=== PATIENT | male | born 1940 | race Caucasian/White ===

== ENCOUNTER 2020-03-30 10:22 | Outpatient (REF) | payer MEDICARE, SELFPAY ==
[2020-03-30 13:41] LABS: MANUAL DIFF FLAG NO
[2020-03-30 13:49] LABS: Basophils Percent Auto 0.5 % (0-2); Eosinophils Absolute Auto 0.5 X10*3/uL (0.0-0.4); Eosinophils Percent Auto 5.6 % (0-4); Hematocrit 34.9 % (42-52); Hemoglobin 11.5 g/dl (14.0-18.0); Imm Gran Abs Auto 0.04 X10*3/uL (0.00-0.03); Imm Gran Pct Auto 0.5 % (0.0-0.4); Lymphocytes Absolute Auto 1.5 X10*3/uL (1.2-4.9); Lymphocytes Percent Auto 16.8 % (20-40); Mean Corpuscular Hemoglobin 30.3 pg (27.0-33.0); Mean Corpuscular Volume 91.8 fL (80-98); Mean Platelet Volume 10.4 fL (9.4-12.4); Monocytes Absolute Auto 0.7 X10*3/uL (0.1-1.2); Neutrophils Absolute Auto 6.1 X10*3/uL (2.0-8.3); Neutrophils Percent Auto 68.6 % (45-73); Platelet Count 230 X10*3/uL (160-400); Red Cell Distribution Width 13.5 % (11.0-16.0); White Blood Count 8.9 X10*3/uL (4.8-10.8)
[2020-03-30 14:05] LABS: Estimated Average Glucose 212 mg/dL; Total Hemoglobin (HGBA1C) 2890.5725 umol/L
[2020-03-30 14:16] LABS: Alanine Aminotransferase 22 U/L (0-40); Albumin Level 4.1 g/dL (3.5-5.0); Alkaline Phosphatase 113 U/L (39-117); Anion Gap 17 (12-20); Aspartate Amino Transferase 21 U/L (5-37); Bilirubin Total 0.6 mg/dL (0.0-1.0); Blood Urea Nitrogen 22 mg/dL (9-16); Calcium 9.3 mg/dL (8.4-10.2); Carbon Dioxide 25 mmol/L (22-29); Chloride 101 mmol/L (96-108); Estimated Glomerular Filt Rate 55; Glucose Fasting 189 mg/dL (60-99); Potassium 4.3 mmol/l (3.3-5.1); Sodium 139 mmol/L (135-145); Total Protein 7.7 g/dL (6.5-8.0)
[2020-03-30 14:39] LABS: Creatinine Urine 19.64 mg/dL; Microalbum/Creatinine Ratio Ur 295.3 ug/mg cr
== END 2020-03-30 10:23 | disposition home or self-care (01) ==
LOC: HO.10HDL 10:22
PROVIDERS: Visit Provider Internal Medicine
DX: I48.91 Unspecified atrial fibrillation (principal); I25.10 Atherosclerotic heart disease of native coronary artery without angina pectoris; K21.9 Gastro-esophageal reflux disease without esophagitis; E11.22 Type 2 diabetes mellitus with diabetic chronic kidney disease; I12.9 Hypertensive chronic kidney disease with stage 1 through stage 4 chronic kidney disease, or unspecified chronic kidney disease; N18.9 Chronic kidney disease, unspecified
CPT/HCPCS: 36415; 80053; 82043; 83036; 85025

== ENCOUNTER 2020-07-27 11:04 | Outpatient (REF) | payer MEDICARE, SELFPAY ==
[2020-07-27 13:45] LABS: MANUAL DIFF FLAG NO
[2020-07-27 13:53] LABS: Basophils Percent Auto 0.4 % (0-2); Eosinophils Absolute Auto 0.7 X10*3/uL (0.0-0.4); Eosinophils Percent Auto 6.8 % (0-4); Hematocrit 35.8 % (42-52); Hemoglobin 11.6 g/dl (14.0-18.0); Imm Gran Abs Auto 0.03 X10*3/uL (0.00-0.03); Imm Gran Pct Auto 0.3 % (0.0-0.4); Lymphocytes Absolute Auto 1.5 X10*3/uL (1.2-4.9); Lymphocytes Percent Auto 14.3 % (20-40); Mean Corpuscular HGB Conc 32.4 g/dl (31.0-36.0); Mean Corpuscular Hemoglobin 30.1 pg (27.0-33.0); Mean Platelet Volume 10.7 fL (9.4-12.4); Monocytes Absolute Auto 0.9 X10*3/uL (0.1-1.2); Monocytes Percent Auto 8.9 % (2-11); Neutrophils Absolute Auto 7.1 X10*3/uL (2.0-8.3); Neutrophils Percent Auto 69.3 % (45-73); Platelet Count 228 X10*3/uL (160-400); Red Blood Count 3.85 X10*6/uL (4.60-5.80); Red Cell Distribution Width 13.2 % (11.0-16.0); White Blood Count 10.2 X10*3/uL (4.8-10.8)
[2020-07-27 14:02] LABS: Estimated Average Glucose 192 mg/dL; Hemoglobin A1c % 8.3 %
[2020-07-27 14:23] LABS: Alanine Aminotransferase 19 U/L (0-40); Albumin Level 4.4 g/dL (3.5-5.0); Alkaline Phosphatase 116 U/L (39-117); Anion Gap 15 (12-20); Aspartate Amino Transferase 23 U/L (5-37); Bilirubin Total 0.9 mg/dL (0.0-1.0); Blood Urea Nitrogen 25 mg/dL (9-16); Calcium 9.6 mg/dL (8.4-10.2); Carbon Dioxide 28 mmol/L (22-29); Chloride 102 mmol/L (96-108); Estimated Glomerular Filt Rate 58; Glucose Random 236 mg/dL (60-115); Potassium 4.4 mmol/L (3.3-5.1); Sodium 141 mmol/L (135-145); Total Protein 7.9 g/dL (6.5-8.0)
[2020-07-27 14:32] LABS: Microalbum/Creatinine Ratio Ur 191.7 ug/mg cr
== END 2020-07-27 11:05 | disposition home or self-care (01) ==
LOC: HO.10HDL 11:04
PROVIDERS: Visit Provider Internal Medicine
DX: I48.91 Unspecified atrial fibrillation (principal); K21.9 Gastro-esophageal reflux disease without esophagitis; E11.22 Type 2 diabetes mellitus with diabetic chronic kidney disease; I12.9 Hypertensive chronic kidney disease with stage 1 through stage 4 chronic kidney disease, or unspecified chronic kidney disease; N18.9 Chronic kidney disease, unspecified; D63.1 Anemia in chronic kidney disease
CPT/HCPCS: 36415; 80053; 82043; 83036; 85025

== ENCOUNTER 2020-11-02 13:20 | Outpatient (REF) | payer MEDICARE, SELFPAY ==
[2020-11-02 13:55] LABS: MANUAL DIFF FLAG NO
[2020-11-02 14:05] LABS: Basophils Percent Auto 0.4 % (0-2); Eosinophils Absolute Auto 0.4 X10*3/uL (0.0-0.4); Eosinophils Percent Auto 4.5 % (0-4); Hematocrit 36.2 % (42-52); Hemoglobin 11.7 g/dl (14.0-18.0); Imm Gran Abs Auto 0.04 X10*3/uL (0.00-0.03); Imm Gran Pct Auto 0.4 % (0.0-0.4); Lymphocytes Absolute Auto 1.6 X10*3/uL (1.2-4.9); Lymphocytes Percent Auto 16.7 % (20-40); Mean Corpuscular HGB Conc 32.3 g/dl (31.0-36.0); Mean Corpuscular Hemoglobin 30.1 pg (27.0-33.0); Mean Corpuscular Volume 93.1 fL (80-98); Mean Platelet Volume 9.7 fL (9.4-12.4); Monocytes Absolute Auto 0.9 X10*3/uL (0.1-1.2); Neutrophils Absolute Auto 6.8 X10*3/uL (2.0-8.3); Platelet Count 228 X10*3/uL (160-400); Red Blood Count 3.89 X10*6/uL (4.60-5.80); Red Cell Distribution Width 13.2 % (11.0-16.0); White Blood Count 9.8 X10*3/uL (4.8-10.8)
[2020-11-02 14:23] LABS: Estimated Average Glucose 212 mg/dL
[2020-11-02 14:36] LABS: Anion Gap 14 (12-20); Blood Urea Nitrogen 25 mg/dL (9-16); Carbon Dioxide 31 mmol/L (22-29); Chloride 101 mmol/L (96-108); Estimated Glomerular Filt Rate 45; Glucose Random 238 mg/dL (60-115); Iron 98 mcg/dL (45-160); Percent Iron Saturation 32 % (15-50); Potassium 4.5 mmol/L (3.3-5.1); Sodium 141 mmol/L (135-145); Total Iron Binding Capacity 303 mcg/dL (228-428); Unsaturated Iron Binding 205 ug/dL
[2020-11-02 14:46] LABS: Thyroid Stimulating Hormone 0.81 uIU/mL (0.32-4.0)
== END 2020-11-02 13:21 | disposition home or self-care (01) ==
LOC: HO.LAB 13:20
PROVIDERS: PCP Internal Medicine; Visit Provider Internal Medicine
DX: R60.0 Localized edema (principal); D64.9 Anemia, unspecified; I12.9 Hypertensive chronic kidney disease with stage 1 through stage 4 chronic kidney disease, or unspecified chronic kidney disease; N18.9 Chronic kidney disease, unspecified; E11.22 Type 2 diabetes mellitus with diabetic chronic kidney disease; I42.9 Cardiomyopathy, unspecified
CPT/HCPCS: 36415; 80048; 83036; 83540; 84443; 85025

== ENCOUNTER 2021-01-25 11:13 | Outpatient (REF) | payer MEDICARE, SELFPAY ==
[2021-01-25 13:36] LABS: MANUAL DIFF FLAG NO
[2021-01-25 13:52] LABS: Basophils Percent Auto 0.3 % (0-2); Eosinophils Absolute Auto 0.1 X10*3/uL (0.0-0.4); Eosinophils Percent Auto 0.5 % (0-4); Hematocrit 32.7 % (42-52); Hemoglobin 10.5 g/dl (14.0-18.0); Imm Gran Abs Auto 0.08 X10*3/uL (0.00-0.03); Imm Gran Pct Auto 0.5 % (0.0-0.4); Lymphocytes Absolute Auto 0.9 X10*3/uL (1.2-4.9); Lymphocytes Percent Auto 6.1 % (20-40); Mean Corpuscular HGB Conc 32.1 g/dl (31.0-36.0); Mean Corpuscular Hemoglobin 29.9 pg (27.0-33.0); Mean Corpuscular Volume 93.2 fL (80-98); Mean Platelet Volume 9.6 fL (9.4-12.4); Monocytes Percent Auto 6.5 % (2-11); Neutrophils Absolute Auto 12.8 X10*3/uL (2.0-8.3); Neutrophils Percent Auto 86.1 % (45-73); Platelet Count 336 X10*3/uL (160-400); Red Blood Count 3.51 X10*6/uL (4.60-5.80); Red Cell Distribution Width 13.4 % (11.0-16.0); White Blood Count 14.8 X10*3/uL (4.8-10.8)
[2021-01-25 14:43] LABS: Estimated Average Glucose 226 mg/dL; Hemoglobin A1c % 9.5 %
[2021-01-25 15:06] LABS: Alanine Aminotransferase 20 U/L (0-40); Albumin Level 3.8 g/dL (3.5-5.0); Alkaline Phosphatase 110 U/L (39-117); Anion Gap 14 (12-20); Aspartate Amino Transferase 14 U/L (5-37); Bilirubin Total 1.2 mg/dL (0.0-1.0); Blood Urea Nitrogen 21 mg/dL (9-16); Carbon Dioxide 28 mmol/L (22-29); Chloride 101 mmol/L (96-108); Estimated Glomerular Filt Rate 53; Glucose Random 273 mg/dL (60-115); Potassium 3.9 mmol/L (3.3-5.1); Sodium 139 mmol/L (135-145); Total Protein 7.1 g/dL (6.5-8.0)
[2021-01-25 15:11] LABS: Creatinine Urine 84.35 mg/dL; Microalbum/Creatinine Ratio Ur 163.6 ug/mg cr
== END 2021-01-25 11:14 | disposition home or self-care (01) ==
LOC: HO.10HDL 11:13
PROVIDERS: Visit Provider Internal Medicine
DX: E11.9 Type 2 diabetes mellitus without complications (principal); I48.0 Paroxysmal atrial fibrillation; N18.9 Chronic kidney disease, unspecified
CPT/HCPCS: 36415; 80053; 82043; 83036; 85025

== ENCOUNTER 2021-04-26 09:31 | Outpatient (REF) | payer MEDICARE, SELFPAY ==
[2021-04-26 10:49] LABS: Estimated Average Glucose 203 mg/dL; Hemoglobin A1c % 8.7 %
[2021-04-26 10:54] LABS: Anion Gap 12 (12-20); Blood Urea Nitrogen 22 mg/dL (9-16); Calcium 9.4 mg/dL (8.4-10.2); Carbon Dioxide 28 mmol/L (22-29); Chloride 103 mmol/L (96-108); Estimated Glomerular Filt Rate 56; Glucose Fasting 172 mg/dL (60-99); Potassium 4.4 mmol/L (3.3-5.1); Sodium 139 mmol/L (135-145)
== END 2021-04-26 09:32 | disposition home or self-care (01) ==
LOC: HO.10HDL 09:31
PROVIDERS: Visit Provider Internal Medicine
DX: I48.0 Paroxysmal atrial fibrillation (principal); E11.9 Type 2 diabetes mellitus without complications; N18.9 Chronic kidney disease, unspecified; I50.9 Heart failure, unspecified
CPT/HCPCS: 36415; 80048; 83036

== ENCOUNTER 2021-07-12 11:05 | Outpatient (REF) | payer MEDICARE, SELFPAY ==
[2021-07-12 14:00] LABS: MANUAL DIFF FLAG NO
[2021-07-12 14:14] LABS: Basophils Absolute Auto 0.1 X10*3/uL (0.0-0.2); Basophils Percent Auto 0.6 % (0-2); Eosinophils Absolute Auto 0.6 X10*3/uL (0.0-0.4); Eosinophils Percent Auto 6.5 % (0-4); Hematocrit 34.8 % (42.0-52.0); Hemoglobin 11.3 g/dl (14.0-18.0); Imm Gran Abs Auto 0.05 X10*3/uL (0.00-0.03); Imm Gran Pct Auto 0.5 % (0.0-0.4); Lymphocytes Absolute Auto 1.6 X10*3/uL (1.2-4.9); Lymphocytes Percent Auto 16.7 % (20-40); Mean Corpuscular HGB Conc 32.5 g/dl (31.0-36.0); Mean Corpuscular Volume 92.3 fL (80.0-98.0); Mean Platelet Volume 10.1 fL (9.4-12.4); Monocytes Absolute Auto 0.9 X10*3/uL (0.1-1.2); Monocytes Percent Auto 9.4 % (2-11); Neutrophils Absolute Auto 6.3 x10*3/uL (2.0-8.3); Neutrophils Percent Auto 66.3 % (45-73); Platelet Count 221 X10*3/uL (160-400); Red Blood Count 3.77 X10*6/uL (4.60-5.80); Red Cell Distribution Width 13.5 % (11.0-16.0); White Blood Count 9.5 X10*3/uL (4.8-10.8)
[2021-07-12 14:32] LABS: Alanine Aminotransferase 25 U/L (0-40); Alkaline Phosphatase 122 U/L (39-117); Anion Gap 14 (12-20); Aspartate Amino Transferase 22 U/L (5-37); Bilirubin Total 0.6 mg/dL (0.0-1.0); Blood Urea Nitrogen 25 mg/dL (9-16); Calcium 9.5 mg/dL (8.4-10.2); Carbon Dioxide 27 mmol/L (22-29); Chloride 100 mmol/L (96-108); Estimated Glomerular Filt Rate 50; Glucose Random 245 mg/dL (60-115); Iron 74 mcg/dL (45-160); Percent Iron Saturation 24 % (15-50); Potassium 4.1 mmol/L (3.3-5.1); Sodium 137 mmol/L (135-145); Total Iron Binding Capacity 306 mcg/dL (228-428); Total Protein 7.7 g/dL (6.5-8.0); Unsaturated Iron Binding 232 ug/dL
[2021-07-13 04:19] LABS: Estimated Average Glucose 186 mg/dL; Hemoglobin A1c % 8.1 %
== END 2021-07-12 11:06 | disposition home or self-care (01) ==
LOC: HO.10HDL 11:05
PROVIDERS: Visit Provider Internal Medicine
DX: E11.22 Type 2 diabetes mellitus with diabetic chronic kidney disease (principal); N18.9 Chronic kidney disease, unspecified; D64.9 Anemia, unspecified; I25.10 Atherosclerotic heart disease of native coronary artery without angina pectoris; I48.0 Paroxysmal atrial fibrillation
CPT/HCPCS: 36415; 80053; 83036; 83540; 85025

== ENCOUNTER 2021-11-01 11:19 | Outpatient (REF) | payer MEDICARE, MEDICAID, SELFPAY ==
[2021-11-01 13:44] LABS: MANUAL DIFF FLAG NO
[2021-11-01 13:57] LABS: Basophils Percent Auto 0.4 % (0-2); Eosinophils Absolute Auto 0.5 X10*3/uL (0.0-0.4); Eosinophils Percent Auto 5.2 % (0-4); Hematocrit 33.1 % (42.0-52.0); Hemoglobin 10.4 g/dl (14.0-18.0); Imm Gran Abs Auto 0.06 X10*3/uL (0.00-0.03); Imm Gran Pct Auto 0.6 % (0.0-0.4); Lymphocytes Absolute Auto 0.8 X10*3/uL (1.2-4.9); Lymphocytes Percent Auto 8.5 % (20-40); Mean Corpuscular HGB Conc 31.4 g/dl (31.0-36.0); Mean Corpuscular Hemoglobin 29.4 pg (27.0-33.0); Mean Corpuscular Volume 93.5 fL (80.0-98.0); Mean Platelet Volume 9.1 fL (9.4-12.4); Monocytes Absolute Auto 0.9 X10*3/uL (0.1-1.2); Monocytes Percent Auto 8.9 % (2-11); Neutrophils Absolute Auto 7.4 x10*3/uL (2.0-8.3); Neutrophils Percent Auto 76.4 % (45-73); Platelet Count 314 X10*3/uL (160-400); Red Blood Count 3.54 X10*6/uL (4.60-5.80); Red Cell Distribution Width 13.2 % (11.0-16.0); White Blood Count 9.7 X10*3/uL (4.8-10.8)
[2021-11-01 15:22] LABS: Alanine Aminotransferase 98 U/L (0-40); Albumin Level 3.5 g/dL (3.5-5.0); Alkaline Phosphatase 117 U/L (39-117); Anion Gap 14 (12-20); Aspartate Amino Transferase 53 U/L (5-37); Bilirubin Total 0.7 mg/dL (0.0-1.0); Blood Urea Nitrogen 31 mg/dL (9-16); Calcium 8.6 mg/dL (8.4-10.2); Carbon Dioxide 28 mmol/L (22-29); Chloride 96 mmol/L (96-108); Estimated Glomerular Filt Rate 40; Glucose Random 316 mg/dL (60-115); Iron 28 mcg/dL (45-160); Percent Iron Saturation 12 % (15-50); Potassium 3.9 mmol/L (3.3-5.1); Sodium 134 mmol/L (135-145); Total Iron Binding Capacity 243 mcg/dL (228-428); Total Protein 7.2 g/dL (6.5-8.0); Unsaturated Iron Binding 215 ug/dL
[2021-11-01 15:37] LABS: Creatinine Urine 68.51 mg/dL; Microalbum/Creatinine Ratio Ur 261.2 ug/mg cr
[2021-11-01 20:17] LABS: Estimated Average Glucose 240 mg/dL
== END 2021-11-01 11:20 | disposition home or self-care (01) ==
LOC: HO.10HDL 11:19
PROVIDERS: Visit Provider Internal Medicine
DX: I48.91 Unspecified atrial fibrillation (principal); D64.9 Anemia, unspecified; I12.9 Hypertensive chronic kidney disease with stage 1 through stage 4 chronic kidney disease, or unspecified chronic kidney disease; N18.9 Chronic kidney disease, unspecified; E11.22 Type 2 diabetes mellitus with diabetic chronic kidney disease
CPT/HCPCS: 36415; 80053; 82043; 83036; 83540; 85025

== ENCOUNTER 2022-01-18 08:45 | Inpatient (IN) | payer MEDICARE, MEDICAID, SELFPAY ==
[2022-01-18] VITALS (7 sets, daily range): BP systolic 127–154; BP diastolic 71–93; PULSE 74–131; RESP 18–31; TEMP 36.3–36.8; O2SAT 89–96; BMI 26.6
--- NOTE | ~2022-01-18 | XR_ITS ---
EXAMINATION: XR CHEST CLINICAL INFORMATION: Dyspnea. COMPARISON: 05/30/2009 chest radiograph. TECHNIQUE: Frontal view of the chest was obtained. FINDINGS: Mild increased pulmonary vascular markings are seen. The heart is mildly enlarged. The mediastinal structures are unremarkable. Multilevel sternotomy wires are seen, the top 3 of which are fractured without significant displacement. XR/XR chest 1V IMPRESSION: Mild prominence of the pulmonary vasculature could be baseline for the patient, but appears mildly increased compared to the previous study. Mild congestion cannot be excluded.
--- NOTE | ~2022-01-18 | CT_ITS ---
EXAMINATION: CT HEAD WITHOUT CONTRAST CLINICAL INFORMATION: Unwitnessed fall. COMPARISON: Brain MRI 06/01/2009. TECHNIQUE: Contiguous axial imaging was performed from the skull base to vertex without intravenous administration of contrast. This CT examination was performed using dose optimization techniques as appropriate, variously including the following: *Automated exposure control *Adjustment of mA and/or kV according to patient size (this includes techniques or standardized protocols for targeted exams where dose is matched to indication/reason for exam; i.e. extremities or head) *Use of iterative reconstruction technique DLP: 710 mGy-cm. FINDINGS: There is no intracranial hemorrhage, extra-axial collection, mass effect, or acute territorial infarction. A moderate-sized area of chronic infarction is seen within the right parietal lobe with encephalomalacic and gliotic changes noted in the parenchyma. There is some ex vacuo dilatation of the right lateral ventricle. There is mild degree of brain parenchymal volume loss with commensurate prominence of the ventricles and sulci. Hypoattenuation in the cerebral white matter most likely reflects sequela of chronic microangiopathy. There is mineralization/calcification about the bilateral tentorial reflection's. The calvarium is intact without fracture. A small area of contusion is seen within the left parietal scalp. Dense atheromatous calcifications are seen within the vertebral arteries and internal carotid arteries. CT/CT head/brain wo IV con IMPRESSION: No acute intracranial abnormality. Small left parietal scalp contusion. No evidence of hemorrhage. 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
--- NOTE | ~2022-01-18 | US_ITS ---
EXAMINATION: US VENOUS ULTRASOUND WITH DOPPLER LOWER EXTREMITY, BILATERAL CLINICAL INFORMATION: Lower extremity pain and swelling. COMPARISON: None TECHNIQUE: Ultrasound of the deep veins is performed from the hip to the calf with compression sonography and color and pulse Doppler assessment. Spectral analysis with color-flow imaging is performed. FINDINGS: RIGHT: There is normal venous compression and respiratory variation and augmented flow. The visualized common femoral vein, superficial femoral vein, profunda femoral vein, popliteal vein, and the trifurcation region shows no evidence of deep venous thrombosis. No right popliteal cyst. Mild to moderate subcutaneous edema in the right calf. LEFT: There is normal venous compression and respiratory variation and augmented flow. The visualized common femoral vein, superficial femoral vein, profunda femoral vein, popliteal vein, and the trifurcation region shows no evidence of deep venous thrombosis. No left popliteal cyst. Mild to moderate subcutaneous edema in the left calf. If the patient's symptoms persist, followup ultrasound in 5 days 7 days might be of value to exclude proximal propagation from a non-visualized calf vein. US/US venous duplex LE BI IMPRESSION: 1. No evidence for deep venous thrombosis in the visualized veins of the bilateral lower extremity's. 2. Mild to moderate subcutaneous edema in the calves bilaterally.
--- NOTE | ~2022-01-18 | XR_ITS ---
EXAMINATION: XR BILATERAL HIPS WITH AP PELVIS CLINICAL INFORMATION: Unwitnessed fall COMPARISON: None TECHNIQUE: AP view of the pelvis and single views of each hip were obtained. FINDINGS: The single pelvic image does not demonstrate evidence for fracture. Detailed views 2 views of the right hip do not demonstrate acute fracture or dislocation. Some degenerative change is seen. 2 views of the left hip do not show evidence for acute fracture or dislocation. Degenerative changes are noted. XR/XR hips GEOVANNY min 3V IMPRESSION: No acute finding
--- NOTE | 2022-01-18 09:08 | ECG_ITS ---
Test Reason : sob Blood Pressure : / mmHG Vent. Rate : 112 BPM Atrial Rate : 000 BPM P-R Int : 000 ms QRS Dur : 106 ms QT Int : 332 ms P-R-T Axes : 000 011 092 degrees QTc Int : 453 ms Atrial fibrillation with rapid ventricular response with premature ventricular or aberrantly conducted complexes Low voltage QRS Possible Inferior infarct (cited on or before 30-MAY-2009) Possible Anterolateral infarct , age undetermined Abnormal ECG When compared with ECG of 30-MAY-2009 11:57, Atrial fibrillation has replaced Sinus rhythm Vent. rate has increased BY 48 BPM Borderline criteria for Anterolateral infarct are now Present Nonspecific T wave abnormality now evident in Inferior leads Referred By: Generic ED Physician Electronically Signed By:SWAPNA LEHMAN
[2022-01-18 09:37] LABS: MANUAL DIFF FLAG NO
--- NOTE | 2022-01-18 09:41 | ED_ITS ---
HPI - SOB/Dyspnea General Chief Complaint: General Medical Stated Complaint: Difficulty breathing Time Seen by Provider: 01/18/22 09:13 Source: patient and family Mode of arrival: ambulatory Limitations: no limitations History of Present Illness HPI Narrative: 81 yo male with hx of CAD s/p CABG, CHF on lasix 60mg daily, afib on xarelto, DM, HTN has been seeing his PCP for leg weeping blisters as well as LE edema. He notes over the past week increased dyspnea, orthopnea, increased swelling. No change in his medications. He has been using topical medications on the legs. He also notes red R eye atraumatic (though daughter notes he felt something was in his eye was using visine) with worsening loss of vision in R eye for 1 week never saw eye doctor MD elicited complaint: shortness of breath Pertinent past history: COPD, congestive heart failure and diabetes Onset (ago): week(s) (1) Context: recent illness Timing: progressively worsening Severity: severe Exacerbating factors: lying flat and exertion Relieving factors: oxygen, rest and upright position Known history of: COPD, congestive heart failure and diabetes Associated symptoms: orthopnea, lower extremity pain and other (weeping lesions on legs) Related Data Home Medications Medication Instructions Recorded Confirmed atorvastatin 80 mg tablet 1 tab PO DAILY 01/18/22 01/18/22 carvedilol 12.5 mg tablet 1 tab PO BID 01/18/22 01/18/22 cyanocobalamin (vitamin B-12) 1,000 mcg PO DAILY 01/18/22 01/18/22 1,000 mcg tablet famotidine 20 mg tablet 1 tab PO BID 01/18/22 01/18/22 ferrous sulfate 324 mg (65 mg 324 mg PO DAILY 01/18/22 01/18/22 iron) tablet,delayed release furosemide 20 mg tablet 2 tab PO DAILY 01/18/22 01/18/22 glipizide 10 mg tablet, extended 1 tab PO BID 01/18/22 01/18/22 release 24 hr insulin detemir U-100 100 unit/mL 20 unit subcut BEDTIME 01/18/22 01/18/22 (3 mL) subcutaneous pen (Levemir FlexTouch U-100 Insulin) lisinopril 10 mg tablet 1 tab PO DAILY 01/18/22 01/18/22 metformin 1,000 mg tablet 1 tab PO DAILY 01/18/22 01/18/22 rivaroxaban 20 mg tablet (Xarelto) 1 tab PO DAILY 01/18/22 01/18/22 sertraline 50 mg tablet 1 tab PO DAILY 01/18/22 01/18/22 Allergies Allergy/AdvReac Type Severity Reaction Status Date / Time No Known Allergies Allergy Unverified 01/23/20 17:50 Review of Systems Review of Systems: Constitutional : No Fever, No Chills, pos fatigue ENT/Mouth : No sore throat, No Rhinorrhea, No Swallowing Difficulty Eyes: No Eye Pain, No Swelling, No Redness, pos loss of vision Cardiovascular : No Chest Pain, positive SOB, No Orthopnea, positive Edema Respiratory : No Cough, No Sputum, No Wheezing, positive dyspnea Gastrointestinal : No Nausea, No Vomiting, No Diarrhea, No abdominal Pain, No Hematochezia, No Melena Genitourinary : No Dysuria, No Urinary Frequency, No Hematuria Musculoskeletal : No joint pain, No Myalgias Skin : pos Skin Lesions, No rash Neuro : pos Weakness, No Numbness, No Dizziness, No Headache Psych : No Anxiety/Panic, No Depression Heme/Lymph: No Bruising, No Lymphadenopathy Endocrine : No Polyuria, No Polydipsia All other systems reviewed and are negative [facility] Past Medical History Attestation statement: The following information was validated with the patient. Medical History (Updated 01/18/22 @ 11:20 by Guadalupe Griffiths DO) Afib CAD (coronary artery disease) CHF (congestive heart failure) COPD (chronic obstructive pulmonary disease) Diabetes HTN (hypertension) Surgical History (Updated 01/18/22 @ 09:42 by Guadalupe Griffiths DO) Hx of CABG Social History Social History (Updated 01/18/22 @ 09:42 by Guadalupe Griffiths DO) Patient Tobacco Use Status: Former Tobacco user Advance Directives: No Advance Directives Information Provided: Yes Physical Exam Vital Signs: Vital Signs: Last Vital Signs Temp 97.4 F 01/18/22 11:36 Pulse 105 H 01/18/22 11:36 Resp 31 H 01/18/22 11:36 BP 154/83 H 01/18/22 11:36 Pulse Ox 93 01/18/22 11:36 O2 Del Method 01/18/22 11:36 O2 Flow Rate 2 01/18/22 11:36 BMI result Body Mass Index 26.6 Appearance: Alert. Oriented X3. Mild acute distress. Eyes: Pupils equal, round and reactive to light. R eye 40% portion lower light red and darker inferior hyphema noted . pressure of R eye 60/61/62 stain of R eye notes uptake and abrasion possible small pinpoint ulcer 7 o clock position of R eye no aqueous flow seen, L eye normal pressures 9/10/11 R eye cannot do visual acuity, L eye 20/20 ENT: Pharynx normal. Neck: Normal inspection. Neck supple. CVS: tachycardic irregular heart rate and rhythm. Pulses normal. Respiratory: Mild respiratory distress tachypnea and retractions. Breath sounds diminished with rales at the bases Abdomen: Soft and nontender. Skin: Skin warm and dry. Normal skin color. Normal skin turgor. Extremities: 2-3+ pitting lower extremity edema. non warm non erythematous blisters noted clear weeping lesions noted Neuro: Oriented X 3. No motor deficit. No sensory deficit. Course Course Course Narrative: call to Dr. Burdick 1036am for R eye - timolol drops daily , latanoprost at night, one time iodopine drops, erythromycin ointment TID, follow up in office, given delayed presentation watch and wait - continue xarelto ointment must be applied after eye drops family aware given delayed presentation risk of permanent vision loss does look much better has urinated almost 1L after IV lasix MDM - SOB/Dyspnea MDM Narrative Medical decision making narrative: 81 yo male with hx of CAD s/p CABG, CHF on lasix 60mg daily, afib on xarelto, DM, HTN here with c/o dyspnea, orthopnea, LE edema with weeping lesions x 1 week concerning for CHF exacerbation at this time labs, CXR, EKG, BNP - IV lasix ordered. He also has hx of COPD but this seems volume overload - xopenex ordered. In rapid afib - IV dilt ordered, DVT studies of LE ordered. No signs of infection on the lower legs at this time. He also has hyphema of R eye that is over one week old possibly started as corneal abrasion - on xarelto will obtain IOP, eye shield consult ophthalmology - loss of vision likely not able to be corrected given delayed presentation. Lab Data Result diagrams: 01/18/22 09:01/18/22 09:27 Labs: Lab Results 01/18/22 01/18/22 01/18/22 Range/Units 09: 09:27 09:27 WBC 9.2 (4.8-10.8) X10*3/uL RBC 3.77 L (4.60-5.80) X10*6/uL Hgb 11.4 L (14.0-18.0) g/dl Hct 36.9 L (42.0-52.0) % MCV 97.9 (80.0-98.0) fL MCH 30.2 (27.0-33.0) pg MCHC 30.9 L (31.0-36.0) g/dl RDW 20.7 H (11.0-16.0) % Plt Count 180 D (160-400) X10*3/uL MPV 9.0 L (9.4-12.4) fL Immature Gran % (Auto) 0.7 H (0.0-0.4) % Neut % (Auto) 77.7 H (45-73) % Lymph % (Auto) 9.6 L (20-40) % [place] % (Auto) 8.4 (2-11) % Eos % (Auto) 3.2 (0-4) % Baso % (Auto) 0.4 (0-2) % Lymph # (Auto) 0.9 L (1.2-4.9) X10*3/uL [place] # (Auto) 0.8 (0.1-1.2) X10*3/uL Eos # (Auto) 0.3 (0.0-0.4) X10*3/uL Baso # (Auto) 0.0 (0.0-0.2) X10*3/uL Abs Immat Gran (auto) 0.06 H (0.00-0.03) X10*3/uL Absolute Neuts (auto) 7.2 (2.0-8.3) x10*3/uL Absolute Nucleated RBC 0.000 (0.0-0.012) X10*3/uL Nucleated RBC % (auto) 0.0 (0.0-0.2) /100WBC VBG pH (7.32-7.43) VBG pCO2 mmHg VBG pO2 mmHg VBG HCO3 (22-26) mmol/L VBG O2 Saturation % VBG Base Excess mmol/L Sodium 138 (135-145) mmol/L Potassium 4.2 (3.3-5.1) mmol/L Chloride 104 (96-108) mmol/L Carbon Dioxide 23 (22-29) mmol/L Anion Gap 15 (12-20) BUN 30 H (9-16) mg/dL Creatinine 1.19 (0.5-1.4) mg/dL Estim Creat Clear Calc 45.4 Estimated GFR 59 Random Glucose 345 H (60-115) mg/dL Lactic Acid 1.6 (0.5-2.0) mmol/L Calcium 8.8 (8.4-10.2) mg/dL Magnesium 2.3 (1.6-2.6) mg/dL Total Bilirubin 1.8 H (0.0-1.0) mg/dL Direct Bilirubin 0.9 H (0.0-0.5) mg/dL AST 33 (5-37) U/L ALT 48 H (0-40) U/L Alkaline Phosphatase 124 H (39-117) U/L Troponin I High Sens (<3.5-35.0) ng/L B-Natriuretic Peptide (<100) pg/mL Total Protein 7.0 (6.5-8.0) g/dL Albumin 3.4 L (3.5-5.0) g/dL Procalcitonin ng/mL COVID-19 (ANNALISE) (Negative) COVID-19 Clin Com 01/18/22 01/18/22 01/18/22 Range/Units 09:27 09:27 09:27 WBC (4.8-10.8) X10*3/uL RBC (4.60-5.80) X10*6/uL Hgb (14.0-18.0) g/dl Hct (42.0-52.0) % MCV (80.0-98.0) fL MCH (27.0-33.0) pg MCHC (31.0-36.0) g/dl RDW (11.0-16.0) % Plt Count (160-400) X10*3/uL MPV (9.4-12.4) fL Immature Gran % (Auto) (0.0-0.4) % Neut % (Auto) (45-73) % Lymph % (Auto) (20-40) % [place] % (Auto) (2-11) % Eos % (Auto) (0-4) % Baso % (Auto) (0-2) % Lymph # (Auto) (1.2-4.9) X10*3/uL [place] # (Auto) (0.1-1.2) X10*3/uL Eos # (Auto) (0.0-0.4) X10*3/uL Baso # (Auto) (0.0-0.2) X10*3/uL Abs Immat Gran (auto) (0.00-0.03) X10*3/uL Absolute Neuts (auto) (2.0-8.3) x10*3/uL Absolute Nucleated RBC (0.0-0.012) X10*3/uL Nucleated RBC % (auto) (0.0-0.2) /100WBC VBG pH (7.32-7.43) VBG pCO2 mmHg VBG pO2 mmHg VBG HCO3 (22-26) mmol/L VBG O2 Saturation % VBG Base Excess mmol/L Sodium (135-145) mmol/L Potassium (3.3-5.1) mmol/L Chloride (96-108) mmol/L Carbon Dioxide (22-29) mmol/L Anion Gap (12-20) BUN (9-16) mg/dL Creatinine (0.5-1.4) mg/dL Estim Creat Clear Calc Estimated GFR Random Glucose (60-115) mg/dL Lactic Acid (0.5-2.0) mmol/L Calcium (8.4-10.2) mg/dL Magnesium (1.6-2.6) mg/dL Total Bilirubin (0.0-1.0) mg/dL Direct Bilirubin (0.0-0.5) mg/dL AST (5-37) U/L ALT (0-40) U/L Alkaline Phosphatase (39-117) U/L Troponin I High Sens 40.2 H (<3.5-35.0) ng/L B-Natriuretic Peptide 2911 H (<100) pg/mL Total Protein (6.5-8.0) g/dL Albumin (3.5-5.0) g/dL Procalcitonin 0.02 ng/mL COVID-19 (ANNALISE) Negative (Negative) COVID-19 Clin Com See Note 01/18/22 Range/Units 11:47 WBC (4.8-10.8) X10*3/uL RBC (4.60-5.80) X10*6/uL Hgb (14.0-18.0) g/dl Hct (42.0-52.0) % MCV (80.0-98.0) fL MCH (27.0-33.0) pg MCHC (31.0-36.0) g/dl RDW (11.0-16.0) % Plt Count (160-400) X10*3/uL MPV (9.4-12.4) fL Immature Gran % (Auto) (0.0-0.4) % Neut % (Auto) (45-73) % Lymph % (Auto) (20-40) % [place] % (Auto) (2-11) % Eos % (Auto) (0-4) % Baso % (Auto) (0-2) % Lymph # (Auto) (1.2-4.9) X10*3/uL [place] # (Auto) (0.1-1.2) X10*3/uL Eos # (Auto) (0.0-0.4) X10*3/uL Baso # (Auto) (0.0-0.2) X10*3/uL Abs Immat Gran (auto) (0.00-0.03) X10*3/uL Absolute Neuts (auto) (2.0-8.3) x10*3/uL Absolute Nucleated RBC (0.0-0.012) X10*3/uL Nucleated RBC % (auto) (0.0-0.2) /100WBC VBG pH 7.40 (7.32-7.43) VBG pCO2 39 mmHg VBG pO2 65 mmHg VBG HCO3 25 (22-26) mmol/L VBG O2 Saturation 88.0 % VBG Base Excess 0.5 mmol/L Sodium (135-145) mmol/L Potassium (3.3-5.1) mmol/L Chloride (96-108) mmol/L Carbon Dioxide (22-29) mmol/L Anion Gap (12-20) BUN (9-16) mg/dL Creatinine (0.5-1.4) mg/dL Estim Creat Clear Calc Estimated GFR Random Glucose (60-115) mg/dL Lactic Acid (0.5-2.0) mmol/L Calcium (8.4-10.2) mg/dL Magnesium (1.6-2.6) mg/dL Total Bilirubin (0.0-1.0) mg/dL Direct Bilirubin (0.0-0.5) mg/dL AST (5-37) U/L ALT (0-40) U/L Alkaline Phosphatase (39-117) U/L Troponin I High Sens (<3.5-35.0) ng/L B-Natriuretic Peptide (<100) pg/mL Total Protein (6.5-8.0) g/dL Albumin (3.5-5.0) g/dL Procalcitonin ng/mL COVID-19 (ANNALISE) (Negative) COVID-19 Clin Com ECG Data Attestation: I personally reviewed and interpreted this ECG as follows: ECG interpretation date: 01/18/22 ECG interpretation time: 09:58 Interpretation: Rate: 112s Rhythm: afib with RVR [place]: normal NSIVCD. Poor R wave progression ST T wave : nonspecific no RAGHAVENDRA qTC: normal prior studies: none The study has been interpreted contemporaneously by me. . Critical Care Time Critical Care Time Critical Care Time: Yes Total Critical Care Time: 60 Attestation: dilt bolus, drip, hypoxia correction, review of records, IOP managemant and medical consult I attest to this time spent taking care of the patient Discharge Plan Discharge Clinical Impression: Atrial fibrillation with rapid ventricular response CHF (congestive heart failure) Qualifiers: Heart failure type: unspecified Heart failure chronicity: acute on chronic Qualified Code(s): I50.9 - Heart failure, unspecified Hyphema Qualifiers: Laterality: right Qualified Code(s): H21.01 - Hyphema, right eye Abrasion, corneal Qualifiers: Encounter type: initial encounter Laterality: right Qualified Code(s): S05.01XA - Injury of conjunctiva and corneal abrasion without foreign body, right eye, initial encounter Patient Disposition: Admitted As Inpatient
[2022-01-18 09:43] LABS: Basophils Percent Auto 0.4 % (0-2); Eosinophils Absolute Auto 0.3 X10*3/uL (0.0-0.4); Eosinophils Percent Auto 3.2 % (0-4); Hematocrit 36.9 % (42.0-52.0); Hemoglobin 11.4 g/dl (14.0-18.0); Imm Gran Abs Auto 0.06 X10*3/uL (0.00-0.03); Imm Gran Pct Auto 0.7 % (0.0-0.4); Lymphocytes Absolute Auto 0.9 X10*3/uL (1.2-4.9); Lymphocytes Percent Auto 9.6 % (20-40); Mean Corpuscular HGB Conc 30.9 g/dl (31.0-36.0); Mean Corpuscular Hemoglobin 30.2 pg (27.0-33.0); Mean Corpuscular Volume 97.9 fL (80.0-98.0); Monocytes Absolute Auto 0.8 X10*3/uL (0.1-1.2); Monocytes Percent Auto 8.4 % (2-11); Neutrophils Absolute Auto 7.2 x10*3/uL (2.0-8.3); Neutrophils Percent Auto 77.7 % (45-73); Platelet Count 180 X10*3/uL (160-400); Red Blood Count 3.77 X10*6/uL (4.60-5.80); Red Cell Distribution Width 20.7 % (11.0-16.0); White Blood Count 9.2 X10*3/uL (4.8-10.8)
[2022-01-18 09:54] LABS: Lactic Acid 1.6 mmol/L (0.5-2.0)
[2022-01-18 09:57] LABS: Alanine Aminotransferase 48 U/L (0-40); Albumin Level 3.4 g/dL (3.5-5.0); Alkaline Phosphatase 124 U/L (39-117); Anion Gap 15 (12-20); Aspartate Amino Transferase 33 U/L (5-37); Bilirubin Direct 0.9 mg/dL (0.0-0.5); Bilirubin Total 1.8 mg/dL (0.0-1.0); Blood Urea Nitrogen 30 mg/dL (9-16); Calcium 8.8 mg/dL (8.4-10.2); Carbon Dioxide 23 mmol/L (22-29); Chloride 104 mmol/L (96-108); Creatinine Clr Calc Pharmacy 45.4; Estimated Glomerular Filt Rate 59; Glucose Random 345 mg/dL (60-115); Magnesium 2.3 mg/dL (1.6-2.6); Potassium 4.2 mmol/L (3.3-5.1); Sodium 138 mmol/L (135-145)
[2022-01-18 09:59] LABS: B Type Natriuretic Peptide 2911 pg/mL (<100); Troponin-I High Sensitivity 40.2 ng/L (<3.5-35.0)
[2022-01-18 10:07] LABS: COVID-19 Test Negative (Negative); IDNOW Serial# 9DD0AD1C
[2022-01-18] MEDS: dilTIAZem HCL 50 MG/10 ML VIAL 10 MG IVPUSH (10:33)
[2022-01-18] MEDS: Furosemide 40 MG/4 ML VIAL IVPUSH ×2 (10:33→19:14)
[2022-01-18] MEDS: Tetracaine HCl/PF 0.5% Oph Sol 4 ML DROPS 1 DROP EYE-RIGHT (10:34)
[2022-01-18] MEDS: Fluorescein Sodium STRIP 1 STRIP EYE-RIGHT (10:34)
[2022-01-18 10:36] LABS: Procalcitonin 0.02 ng/mL
--- NOTE | 2022-01-18 11:22 | PHA.MEDREC ---
Pharmacy Consult ? Medication Reconciliation Pharmacy has completed the medication reconciliation. Pt able to confirm medications at bedside
[2022-01-18] MEDS: timoloL maleate 0.5 % Oph Sol 5 ML DRBTL 1 DROP EYE-RIGHT ×2 (11:27→22:31)
[2022-01-18] MEDS: Furosemide 20 MG/2 ML VIAL IVPUSH (11:28)
[2022-01-18] MEDS: Apraclonidine HCl 1 % Oph Sol 1 EACH DROPERETTE 1 DROP EYE-RIGHT (11:33)
[2022-01-18] MEDS: dilTIAZem HCL 125 MG in 0.9 % Sodium Chloride 100 ML 10 MG IVCONT (11:39)
[2022-01-18 11:51] LABS: Venous Blood Gas Refer to POC result
[2022-01-18 11:53] LABS: VBG Base Excess 0.5 mmol/L; VBG HCO3 25 mmol/L (22-26); VBG pCO2 39 mmHg; VBG pO2 65 mmHg
[2022-01-18 12:02] LABS: INTERNATIONAL NORM RATIO 1.2 (0.9-1.1); Prothrombin Time 14.1 SEC (10.0-13.1)
[2022-01-18 12:04] LABS: Partial Thromboplastin Time 27.1 SEC (26.0-36.4)
--- NOTE | 2022-01-18 12:20 | PC.NURSE ---
pt remains awake and alert. heart rate was in a afib rvr on the monitor, he was started on a cardizem gtt bilateral LE'S are weeping fluid. lasix effective with >1000ml output
[2022-01-18] MEDS: ondansetron HCL 4 MG/2 ML VIAL IVPUSH ×2 (12:50→17:16)
--- NOTE | 2022-01-18 12:54 | PC.NURSE ---
pt dry heaving pale, he was repositioned and medicated as charted
--- NOTE | 2022-01-18 12:58 | P.HPHOSP_ITS ---
History of Present Illness Date of Service: 01/18/22 Chief Complaint: dyspnea 81yo M with CAD s/p CABG, HTN, HLD, hx CVA x2, AF on rivaroxaban, and DM2 on insulin presenting with 2 weeks of worsening exertional dyspnea, orthopnea, and leg edema. He denies chest pain or palpitations. No recent medication changes or nonadherence. His edema progressed to the point where he developed weeping blisters on his legs and was applying Silvadene and wrapping them with gauze. Additionally, his right eye is red and he cannot see out of it. No known foreign body exposure. He did not seek ophthalmologic care. In the ED, he was found to be hypoxic with room air SaO2 of 89%. He was in rapid AF with rate in the 130s. He was dyspneic with RR 28-31. CXR showed pulmonary vascular congestion and BNP was elevated to 2911. He was given 20, then 40 mg of IV furosemide. He was given 10 mg of IV diltiazem then started on an infusion that is currently running at 10 mg/hr with his ventricular rate in the 90s. The ED physician did a fluorescein slit lamp examination and noted hyphema on the right with pinpoint corneal ulcer; pressures were elevated at 61. She spoke to the on-call architectural coating finisher, Dr Burdick, who recommended supportive care with timolol, latanoprost, and erythromycin given the delayed presentation; OK to resume rivaroxaban. Review of Systems Review of Systems: Yes all other systems are reviewed and are negative [facility] Medical History (Updated 01/18/22 @ 13:05 by Yuniel Johnson MD) Afib CAD (coronary artery disease) CHF (congestive heart failure) COPD (chronic obstructive pulmonary disease) Diabetes History of amputation of great toe History of CVA (cerebrovascular accident) HTN (hypertension) Family History (Updated 01/18/22 @ 13:07 by Yuniel Johnson MD) Other Diabetes Surgical History Hx of CABG Social History Patient Tobacco Use Status: Former Tobacco user Advance Directives: No Advance Directives Information Provided: Yes Meds Allergies Allergy/AdvReac Type Severity Reaction Status Date / Time No Known Allergies Allergy Unverified 01/23/20 17:50 Active Medications: Current Medications Atorvastatin Calcium (Atorvastatin Calcium 80 Mg Tablet) 80 mg PO DAILY [facility] Carvedilol (Carvedilol 12.5 Mg Tablet) 12.5 mg PO BID [facility]; Protocol Cyanocobalamin (Cyanocobalamin (Vitamin B-12) 1,000 Mcg Tablet) 1,000 mcg PO DAILY [facility] Dextrose (Dextrose 50 % 25 Gm/50 Ml Syringe) 25 gm IVPUSH Q15M PRN; Protocol PRN Reason: per Hypoglycemia Standing Ord. Erythromycin (Erythromycin Base 0.5% Oph Oin 1 Gm Tube) 1 cm EYE-RIGHT TID [facility] Famotidine (Famotidine 20 Mg Tablet) 20 mg PO BID [facility] Ferrous Sulfate (Ferrous Sulfate 324 Mg Tablet.Dr) 324 mg PO DAILY [facility] Furosemide (Furosemide 40 Mg/4 Ml Vial) 40 mg IVPUSH BID@0900,1800 [facility]; Protocol Glucose (Glucose Gel 15 Gm Gel..Gram.) 15 gm PO Q15M PRN; Protocol PRN Reason: per Hypoglycemia Standing Ord. Diltiazem HCl 125 mg/ Sodium (Chloride) 125 mls @ 0 mls/hr IVCONT .Q0M [facility]; Protocol Last Admin: 01/18/22 11:39 Dose: 10 mg/hr, 10 mls/hr Insulin Glargine (Insulin Glargine,Hum.Rec.Anlog 100 Unit/Ml 10 Ml Vial) 14 unit SUBCUT BEDTIME [facility] Insulin Human Lispro (Insulin Lispro 100 Unit/Ml 3 Ml Vial) 0 unit SUBCUT QIDACHS [facility]; Protocol Latanoprost (Latanoprost 0.005 % Ophth Patricia 2.5 Ml Drops) 1 drop EYE-RIGHT BEDTIME [facility] Lisinopril (Lisinopril 10 Mg Tablet) 10 mg PO DAILY [facility]; Protocol Pharmacy Consult (Consult Rx Perform Med Rec) 1 each MISCELLANE ONCE PRN PRN Reason: Consult order Rivaroxaban (Rivaroxaban 20 Mg Tablet) 20 mg PO DAILY [facility] Sertraline HCl (Sertraline Hcl 50 Mg Tablet) 50 mg PO DAILY [facility] Timolol Maleate (Timolol Maleate 0.5 % Oph Patricia 5 Ml Drbtl) 1 drop EYE-RIGHT BID [facility] Home Medications Medication Instructions Recorded Confirmed Last Taken Type atorvastatin 80 mg tablet 1 tab PO DAILY 01/18/22 01/18/22 01/17/22 History carvedilol 12.5 mg tablet 1 tab PO BID 01/18/22 01/18/22 01/17/22 History cyanocobalamin (vitamin B-12) 1,000 mcg PO DAILY 01/18/22 01/18/22 01/17/22 History 1,000 mcg tablet famotidine 20 mg tablet 1 tab PO BID 01/18/22 01/18/22 01/17/22 History ferrous sulfate 324 mg (65 mg 324 mg PO DAILY 01/18/22 01/18/22 01/17/22 History iron) tablet,delayed release furosemide 20 mg tablet 2 tab PO DAILY 01/18/22 01/18/22 01/17/22 History glipizide 10 mg tablet, extended 1 tab PO BID 01/18/22 01/18/22 01/17/22 History release 24 hr insulin detemir U-100 100 unit/mL 20 unit subcut BEDTIME 01/18/22 01/18/22 01/17/22 History (3 mL) subcutaneous pen (Levemir FlexTouch U-100 Insulin) lisinopril 10 mg tablet 1 tab PO DAILY 01/18/22 01/18/22 01/17/22 History metformin 1,000 mg tablet 1 tab PO DAILY 01/18/22 01/18/22 01/17/22 History rivaroxaban 20 mg tablet (Xarelto) 1 tab PO DAILY 01/18/22 01/18/22 01/17/22 History sertraline 50 mg tablet 1 tab PO DAILY 01/18/22 01/18/22 01/17/22 History Physical Exam Vital Signs and Narrative: Vital Signs: Last Vital Signs Temp 97.4 F 01/18/22 11:36 Pulse 105 H 01/18/22 11:36 Resp 31 H 01/18/22 11:36 BP 154/83 H 01/18/22 11:36 Pulse Ox 93 01/18/22 11:36 O2 Del Method 01/18/22 11:36 O2 Flow Rate 2 01/18/22 11:36 BMI result Body Mass Index 26.6 Gen: in moderate respiratory distress HEENT: R eye hyphema Neck: supple, JVD present Lungs: diminished bilaterally Heart: irregularly irregular, no murmurs Abd: soft, non-tender, non-distended Ext: 2+ pitting lower extremity edema bilaterally with weeping blisters Skin: warm/well-perfused Neuro: alert and oriented x3, no focal findings Psych: appropriate affect Results Labs CBC and Chem 7: 01/18/22 09:27 01/18/22 09:27 Labs: Laboratory Results - last 24 hr 01/18/22 01/18/22 01/18/22 09:27 09:27 09:27 MCV 97.9 MCH 30.2 MCHC 30.9 L RDW 20.7 H Plt Count 180 D MPV 9.0 L Immature Gran % (Auto) 0.7 H Neut % (Auto) 77.7 H Lymph % (Auto) 9.6 L [place] % (Auto) 8.4 Eos % (Auto) 3.2 Baso % (Auto) 0.4 Lymph # (Auto) 0.9 L [place] # (Auto) 0.8 Eos # (Auto) 0.3 Baso # (Auto) 0.0 Abs Immat Gran (auto) 0.06 H Absolute Neuts (auto) 7.2 Absolute Nucleated RBC 0.000 Nucleated RBC % (auto) 0.0 PT INR APTT VBG pH VBG pCO2 VBG pO2 VBG HCO3 VBG O2 Saturation VBG Base Excess Anion Gap 15 Estim Creat Clear Calc 45.4 Estimated GFR 59 Random Glucose 345 H Lactic Acid 1.6 Calcium 8.8 Magnesium 2.3 Total Bilirubin 1.8 H Direct Bilirubin 0.9 H AST 33 ALT 48 H Alkaline Phosphatase 124 H B-Natriuretic Peptide Total Protein 7.0 Albumin 3.4 L Procalcitonin COVID-19 (ANNALISE) COVID-19 Clin Com 01/18/22 01/18/22 01/18/22 09:27 09:27 09:27 MCV MCH MCHC RDW Plt Count MPV Immature Gran % (Auto) Neut % (Auto) Lymph % (Auto) [place] % (Auto) Eos % (Auto) Baso % (Auto) Lymph # (Auto) [place] # (Auto) Eos # (Auto) Baso # (Auto) Abs Immat Gran (auto) Absolute Neuts (auto) Absolute Nucleated RBC Nucleated RBC % (auto) PT INR APTT VBG pH VBG pCO2 VBG pO2 VBG HCO3 VBG O2 Saturation VBG Base Excess Anion Gap Estim Creat Clear Calc Estimated GFR Random Glucose Lactic Acid Calcium Magnesium Total Bilirubin Direct Bilirubin AST ALT Alkaline Phosphatase B-Natriuretic Peptide 2911 H Total Protein Albumin Procalcitonin 0.02 COVID-19 (ANNALISE) Negative COVID-19 Clin Com See Note 01/18/22 01/18/22 11:42 11:47 MCV MCH MCHC RDW Plt Count MPV Immature Gran % (Auto) Neut % (Auto) Lymph % (Auto) [place] % (Auto) Eos % (Auto) Baso % (Auto) Lymph # (Auto) [place] # (Auto) Eos # (Auto) Baso # (Auto) Abs Immat Gran (auto) Absolute Neuts (auto) Absolute Nucleated RBC Nucleated RBC % (auto) PT 14.1 H INR 1.2 H APTT 27.1 VBG pH 7.40 VBG pCO2 39 VBG pO2 65 VBG HCO3 25 VBG O2 Saturation 88.0 VBG Base Excess 0.5 Anion Gap Estim Creat Clear Calc Estimated GFR Random Glucose Lactic Acid Calcium Magnesium Total Bilirubin Direct Bilirubin AST ALT Alkaline Phosphatase B-Natriuretic Peptide Total Protein Albumin Procalcitonin COVID-19 (ANNALISE) COVID-19 Clin Com Imaging Radiologist's Impressions: Impressions Chest X-Ray 01/18/22 09:45 IMPRESSION: Mild prominence of the pulmonary vasculature could be baseline for the patient, but appears mildly increased compared to the previous study. Mild congestion cannot be excluded. Venous Duplex 01/18/22 11:17 IMPRESSION: 1. No evidence for deep venous thrombosis in the visualized veins of the bilateral lower extremity's. 2. Mild to moderate subcutaneous edema in the calves bilaterally. Assessment and Plan (1) Atrial fibrillation with rapid ventricular response: Status: Acute (2) CHF (congestive heart failure): Qualifiers: Heart failure chronicity: acute on chronic Heart failure type: unspecified Qualified Code(s): I50.9 - Heart failure, unspecified Status: Acute Plan 81yo M with CAD s/p CABG, HTN, HLD, hx CVA x2, AF on rivaroxaban, and DM2 on insulin presenting with worsening exertional dyspnea, orthopnea, and leg edema and found to be hypoxic and volume overloaded, and in AF/RVR. # AF/RVR - admit to IMC. continue diltiazem gtt for rate control, rivaroxaban for anticoagulation. continue carvedilol. Cardiology consult. # CHF exacerbation, unknown EF - diurese with IV furosemide and monitor BMP/BNP/Mg, I+Os. check TTE; none in o ur system and the pt has been out of cardiac care for years. Cardiology consult. # HTN - continue carvedilol, lisinopril # CAD # hx CVA - continue statin, b-malissa, rivaroxaban, MANUEL-I. # DM2, A1c 10 (11/01/21) - continue basal insulin; hold OHGs; give correction-dose prandial insulin # VTE prophylaxis: rivaroxaban # code status: full I anticipate that the patient will stay at least 2 midnights in hospital due to the above reasons. It is neither reasonable nor safe to care for them in a less acute setting. Quality Stroke Does the patient have a stroke diagnosis?: No VTE Prior VTE?: No VTE Risk Level:: Medical - moderate - high VTE Device Contraindication: Procedure Contraindicated VTE Drug Contraindication: N/A - Med Ordered
--- NOTE | 2022-01-18 13:00 | CA_ITS ---
Transthoracic Echocardiogram Patient (Last, First, Middle): Donnie Clayton, Gender: Male Date of : 1940 Age: 81 Procedure Date: 01/18/2022 Procedure Type: Transthoracic Echocardiogram Location: [facility] [place] Height: 167.64 cm Weight: 74.84 kg BSA: 1.84 m2 Heart Rate: bpm BP: 154 / 83 mmHg Environmental Property Assessor: Referring MD: Yuniel Johnson MD Aerial Photographer: Cristino Pugh MD Symptoms: CHF Study Quality: Fair ECG Rhythm: Sinus Conclusions: - 1. Severe LV systolic dysfunction with LVEF of 20-25% with restrictive filling pattern 2. At least moderately dilated left atrium 3. [id number]-ul-[id number] mitral and tricuspid regurgitation 4. Mild aortic stenosis cannot be ruled out on this study 5. Severe elevation of right ventricular systolic pressure as well as right atrial pressures 6. No gross pericardial effusion Findings Procedure Information Contrast agent, definity, is being given per protocol without apparent complications. Left Ventricle Mildly increased left ventricular cavity size. There is normal left ventricular wall thickness. The left ventricular systolic function is severely decreased. The visually estimated ejection fraction is between 20 25%. There is severe global hypokinesis. Spectral Doppler is indicative of a restrictive filling pattern. Right Ventricle Normal right ventricular cavity size. There is low normal right ventricular systolic function. Atria The left atrium is moderately dilated. Interatrial shunt cannot be excluded. The right atrium is mildly dilated. Aortic Valve There is mild calcification of the aortic valve. There is moderate thickening of the aortic valve. The mean gradient is 7 mmHg. There is mild aortic valve regurgitation. Mitral Valve There is mild anterior and posterior mitral leaflet thickening. There is mild mitral annular calcification. There is mild to moderate mitral valve regurgitation. There is no mitral valve stenosis. Pulmonic Valve The pulmonic valve is likely normal. There is trace to mild pulmonic valve regurgitation. Tricuspid Valve Normal tricuspid valve structure. There is mild to moderate tricuspid valve regurgitation. Significantly elevated right atrial pressure. Severe pulmonary hypertension is present. Great Vessels All visible segments of the aorta are normal in size. The pulmonary artery was not well visualized. Venous The inferior vena cava is moderately dilated and does not collapse with inspiration. Pericardium/Pleural There is no evidence of pericardial effusion. Prior Study Comparison No prior study available for comparison. PT [facility] PR[facility] Measurements 2D Linear Measurements IVSd: 1.02 0.6-0.9/0.6-1.0 cm LVIDd: 5.62 3.9-5.3/4.2-5.9 cm LVIDd Index: 3.05 2.4-3.2/2.2-3.1 cm/m2 LVIDs: 4.88 2.0-3.6 cm LVPWd: 0.95 0.7-1.1 cm Ao Root: 3.40 2.1-3.5 cm LA Diam: 4.70 2.7-3.8/3.0-4.0 cm LAIDs Index: 2.55 1.5-2.3 cm/m2 LV Mass: 270.13 67-162/88-224 g LV Mass Index: 146.81 43-95/49-115 g/m2 LVOT Diam: 2.20 3.0+(-)1.3 cm 2D Systolic Function EF 4C: 18.80 >55% EF 2C: 39.10 >55% EF BiP: 26.40 >55% Mitral Valve MV Pk E: 1.24 MV Decel Time: 148.00 E'Lateral: 7.29 E'Medial: 4.90 E/E' Med: 25.30 E/E' Lat: 17.00 PHT: 43.00 MVA PHT: 5.12 Decel Clark: 8.40 Aortic Valve AoV Pk Jasper: 1.77 AoV Mn Jasper: 1.16 AoV VTI: 0.34 AoV Pk Grad: 13.00 Aov Mn Grad: 7.00 SACHA Cont.VTI: 1.50 LVOT LVOT Pk Jasper: 0.75 LVOT Mn Jasper: 0.49 LVOT VTI: 0.13 LVOT Pk Grad: 2.00 LVOT Mn Grad: 1.00 LVOT Diam: 2.20 LVOT Area: 3.80 Diastolic Function MV Pk E: 1.24 E'Medial: 4.90 E/E' Med: 25.30 E' Laterial: 7.29 E/E' Lat: 17.00 Right Ventricle TAPSE (mm): 16.00 TVS' Jasper: 8.00 Tricuspid Valve TR Pk Jasper: 3.96 TR Pk Grad: 63.00 RA Press: 15.00 RVSP: 78.00 Great Vessels Aorta Ao Root-2D: 3.40 2.0-3.7 cm Ao Asc: 3.70 2.1-3.4 cm Pulmonary Valve PV Pk Jasper: 0.83 Peak PV Grad: 3.00 Updated in Other Vendor System with Status of Final Cristino Pugh MD electronically signed on 01/18/2022 3:35:39 PM with status of Final
[2022-01-18 13:29] LABS: Glucose, Whole Blood 253 mg/dL (60-115)
[2022-01-18 14:22] LABS: Troponin-I High Sensitivity 45.2 ng/L (<3.5-35.0)
[2022-01-18] MEDS: Erythromycin Base 0.5% Oph Oin 1 GM TUBE 1 CM EYE-RIGHT ×2 (14:52→22:22)
--- NOTE | 2022-01-18 14:55 | PC.NURSE ---
pt reports nausea resolved, given po challenge avel dulce crackers will advance as tolerated
--- NOTE | 2022-01-18 16:15 | PC.NURSE ---
pt did get nausea and had a few dry heaves earlier after po trial he was given po fluids at this time
--- NOTE | 2022-01-18 17:23 | PC.NURSE ---
SPOKE AT LENGTH WITH SPOUSE KASH ABOUT PTS NAUSEA, AND DRY HEAVES. HE REPORTED TO HER WE ARE WITHHOLDING FOOD, I HAVE MEDICATED AND TRIALED INTAKE TO DECREASE VOMITING/DRY HEAVES. I HAVE REMEDICATED AND GIVEN JELLO TO SEE IF THIS IS TOLERATED BY THE PT
[2022-01-18 17:37] LABS: Glucose, Whole Blood 286 mg/dL (60-115)
[2022-01-18] MEDS: 0.9 % Sodium Chloride Flush 3 ML SYRINGE IVFLUSH (19:14)
[2022-01-18] MEDS: Insulin Lispro 100 UNIT/ML 3 ML VIAL SUBCUT ×2 (19:14→22:24)
--- NOTE | 2022-01-18 19:22 | PC.NURSE ---
pt tolerated dinner and was medicated with insulin as charted
[2022-01-18] MEDS: Acetaminophen 325 MG TABLET 650 MG PO (21:15)
[2022-01-18] MEDS: Insulin Glargine,Hum.rec.anlog 100 UNIT/ML 10 ML VIAL 14 UNIT SUBCUT (21:22)
[2022-01-18 21:35] LABS: Glucose, Whole Blood 389 mg/dL (60-115)
[2022-01-18] MEDS: carvediloL 12.5 MG TABLET PO (22:22)
[2022-01-18] MEDS: Famotidine 20 MG TABLET PO (22:22)
[2022-01-19] VITALS (15 sets, daily range): BP systolic 82–122; BP diastolic 53–76; PULSE 68–98; RESP 16–26; TEMP 36–36.2; O2SAT 93–100; BMI 28.2
--- NOTE | 2022-01-19 00:10 | PC.NURSE ---
This RN spoke to Dr. Merritt-updated BP 133/72, P 85-88. Per MD rk radford, continue monitoring VS.
[2022-01-19] MEDS: 0.9 % Sodium Chloride Flush 3 ML SYRINGE IVFLUSH ×3 (00:13→15:14)
--- NOTE | 2022-01-19 00:19 | PC.NURSE ---
Patient reports achy, burning pain in right leg continues to be bothersome-6/10 on 0-[address] Merritt notified-verbal order received to administer Oxycodone 5 mg PO once. MAR .
[2022-01-19] MEDS: oxyCODONE HCl Immed Release 5 MG TABLET PO (00:24)
[2022-01-19 05:23] LABS: Anion Gap 13 (12-20); Blood Urea Nitrogen 30 mg/dL (9-16); Calcium 8.4 mg/dL (8.4-10.2); Carbon Dioxide 28 mmol/L (22-29); Chloride 101 mmol/L (96-108); Creatinine Clr Calc Pharmacy 42.5; Estimated Glomerular Filt Rate 55; Glucose Random 231 mg/dL (60-115); Magnesium 2.2 mg/dL (1.6-2.6); Potassium 4.4 mmol/L (3.3-5.1); Sodium 138 mmol/L (135-145)
[2022-01-19 05:24] LABS: B Type Natriuretic Peptide 2911 pg/mL (<100)
[2022-01-19 07:02] LABS: Glucose, Whole Blood 204 mg/dL (60-115)
--- NOTE | 2022-01-19 08:19 | P.CDIC_ITS ---
[facility]I Concurrent Query Documentation Clarification: PHYSICIAN'S DOCUMENTATION REQUEST Date of Query: 01/19/22 0819 Patient Name: Donnie Clayton Admit Date: 01/18/22 Dear Doctor, A review of the medical record indicates additional documentation may be needed. Please review below and update the documentation accordingly. Clinical Indicators: Risk Factors/Clinical Indicators/Treatments Per ED note: Mild respiratory distress tachypnea and retractions.? Breath sounds diminished with rales at the bases respiratory rate 31 oxygen at 2L NC Recognized standard criteria for respiratory failure includes: (Source: [employer] [facility] Mar 2013) ABGs (1 or more) Symptoms: ? PO2 <60 or RA SpO2 <91% ? Tachypnea, SOB, dyspnea ? PcO2 >50 and pH <7.35 ? Pallor or cyanosis ? pO2 decrease or pcO2 increase ? Anxiety or restlessness by 10 mm/Hg from baseline if known ? Use of accessory muscles ? Retractions (grunting in newborns) ? Unable to speak in complete sentences P/F ratio < 300 Supplemental O2 requirement of 40% or more Intubation is not required Clarify which of the following accurately represents the patient's respiratory status: * Acute respiratory failure * Acute respiratory distress * Hypoxia * Other (please specify) * Unable to determine Please include type if known: * Hypoxic * Hypercapnic * Hypoxic and hypercapnic * Unable to determine Use of terms such as suspected, likely, concern for, or probable (associated with a specific diagnosis that is being evaluated, monitored, or treated as if it exists) are acceptable and can be coded in the inpatient setting, when documented at the time of discharge. Thank you, Lauryn Gale RN Extension: [phone] Please use your independent medical judgment in providing your response. THIS QUERY IS PART OF THE PERMANENT MEDICAL RECORD Provider Response: Other Other Diagnosis: acute hypoxic respiratory failure
[2022-01-19 08:59] LABS: Glucose, Whole Blood 181 mg/dL (60-115)
[2022-01-19] MEDS: Rivaroxaban 20 MG TABLET PO (09:02)
[2022-01-19] MEDS: carvediloL 12.5 MG TABLET PO (09:02)
[2022-01-19] MEDS: Cyanocobalamin (Vitamin B-12) 1,000 MCG TABLET 1000 MCG PO (09:03)
[2022-01-19] MEDS: Sertraline HCL 50 MG TABLET PO (09:03)
[2022-01-19] MEDS: Famotidine 20 MG TABLET PO ×2 (09:03→20:56)
[2022-01-19] MEDS: Ferrous Sulfate 324 MG TABLET.DR PO (09:03)
[2022-01-19] MEDS: lisinopriL 10 MG TABLET PO (09:03)
[2022-01-19] MEDS: Atorvastatin Calcium 80 MG TABLET PO (09:03)
[2022-01-19] MEDS: Erythromycin Base 0.5% Oph Oin 1 GM TUBE 1 CM EYE-RIGHT ×3 (09:04→21:05)
[2022-01-19] MEDS: timoloL maleate 0.5 % Oph Sol 5 ML DRBTL 1 DROP EYE-RIGHT (09:04)
[2022-01-19] MEDS: Insulin Lispro 100 UNIT/ML 3 ML VIAL SUBCUT ×4 (09:04→21:00)
[2022-01-19] MEDS: Furosemide 40 MG/4 ML VIAL IVPUSH ×2 (09:05→14:55)
--- NOTE | 2022-01-19 09:45 | P.CONCA_ITS ---
History of Present Illness History of Present Illness Date of Service: 01/19/22 Requesting physician: Yuniel Johnson Consult reason: atrial fibrillation and congestive heart failure Chief complaint: CHF AF Narrative: I was consulted to see Donnie in cardiology consultation today for decompensated congestive heart failure and atrial fibrillation. Donnie is a 81-year-old male with prior history of coronary artery disease status post 4 vessel coronary artery bypass grafting in 2008 for significant coronary artery disease perform in the setting of worsening shortness of breath and findings consistent with unstable angina with severe 3 vessel disease. The anatomy including PALMA to LAD and SVG graft to OM, diagonal and the PDA branch of the RCA. Since then patient has been followed with a stone gang sawyer Dr. Jay but has not seen him for few years because he has since moved from the area. He has not had any routine cardiology care for couple years. He also has prior history of paroxysmal atrial fibrillation but to his knowledge this was postoperative and has had no clinical recurrence since then. He also by last echocardiogram mild ischemic cardiomyopathy and there was a plan for doing any ischemic workup but this was never followed through as per his knowledge. History of hypertension, diabetes, neuropathy and hyperlipidemia. He is on chronic anticoagulation with Xarelto 20 mg daily which she has been taking religiously without any stoppage. Patient says for about a month he has been having increasing leg swelling and redness in his lower extremity for which she has been seeing Dr. Aparicio and has been treated with antibiotic but about a week and half ago he started noticing increasing shortness of breath and exertion including shortness of breath lying down and mostly with minimal exertion. He also continue to have significant leg swelling and came to the emergency room yesterday. Yesterday was noted to be in atrial fibrillation rapid ventricular response and decompensated congestive heart failure. Cardiology consult was sought. Echocardiogram was done yesterday which showed severe LV systolic dysfunction with LVEF of 20-25% with restrictive filling pattern with at least moderately dilated left atrium with [id number] mitral and tricuspid regurgitation with mild aortic stenosis and severely elevated right ventricular systolic pressure as well as right atrial pressures. Patient since then has been diuresed but still appears to be short of breath. Says feel short of breath currently using oxygen. Heart rate is well controlled he was started on diltiazem drip. He denies any palpitations or feeling of being in atrial fibrillation. Not sure as to when his last episode of atrial fibrillation was. Last EKG in the system is from 2009 which had shown normal sinus rhythm with inferior SD. EKG yesterday shows atrial fibrillation rapid ventricular response with inferior SD and nonspecific ST T wave changes. Review of Systems Constitutional: Constitutional: Reports no additional constitutional complaints Eyes: Eyes: Reports no additional eye complaints Cardiovascular: Cardiovascular: Denies chest pain, Reports leg edema, Denies lightheadedness, Denies Loss of Consciousness, Denies palpitations, Reports dyspnea on exertion and Reports orthopnea Respiratory: Respiratory: Reports no additional respiratory complaints, Denies cough, Reports dyspnea on exertion and Denies wheezing Gastrointestinal: Gastrointestinal: Denies no additional gastrointestinal complaints Genitourinary: Genitourinary: Denies no additional male genitourinary complaints Musculoskeletal: Musculoskeletal: Denies no additional musculoskeletal complaints Integumentary/Breasts: Skin/Breast: Denies system reviewed and no additional complaints, except as docu Neurologic: Denies system reviewed and no additional complaints, except as documented Psychiatric: Psychiatric: Denies no additional psychiatric complaints Endocrine: Endocrine: Denies palpitations Allergic/Immunologic: Allergic/Immunologic: Denies wheezing [facility] Past Medical History Medical History (Updated 01/19/22 @ 09:54 by Cristino Pugh MD) Afib CAD (coronary artery disease) CHF (congestive heart failure) COPD (chronic obstructive pulmonary disease) Diabetes History of amputation of great toe History of CVA (cerebrovascular accident) HTN (hypertension) Family History Family History Other Diabetes Surgical History Surgical History Hx of CABG Social History Social History Patient Tobacco Use Status: Former Tobacco user Advance Directives: No Advance Directives Information Provided: Yes Meds Allergies Allergy/AdvReac Type Severity Reaction Status Date / Time No Known Allergies Allergy Unverified 01/23/20 17:50 Active Medications: Current Medications Acetaminophen (Acetaminophen 325 Mg Tablet) 650 mg PO Q6H PRN PRN Reason: Pain, Mild (Pain Scale 1-3) Last Admin: 01/18/22 21:15 Dose: 650 mg Atorvastatin Calcium (Atorvastatin Calcium 80 Mg Tablet) 80 mg PO DAILY JOEY Last Admin: 01/19/22 09:03 Dose: 80 mg Carvedilol (Carvedilol 12.5 Mg Tablet) 12.5 mg PO BID [facility]; Protocol Last Admin: 01/19/22 09:02 Dose: 12.5 mg Cyanocobalamin (Cyanocobalamin (Vitamin B-12) 1,000 Mcg Tablet) 1,000 mcg PO DAILY [facility] Last Admin: 01/19/22 09:03 Dose: 1,000 mcg Dextrose (Dextrose 50 % 25 Gm/50 Ml Syringe) 25 gm IVPUSH Q15M PRN; Protocol PRN Reason: per Hypoglycemia Standing Ord. Docusate Sodium (Docusate Sodium 100 Mg Capsule) 100 mg PO BID PRN PRN Reason: constipation Erythromycin (Erythromycin Base 0.5% Oph Oin 1 Gm Tube) 1 cm EYE-RIGHT TID [facility] Last Admin: 01/19/22 09:04 Dose: 1 cm Famotidine (Famotidine 20 Mg Tablet) 20 mg PO BID [facility] Last Admin: 01/19/22 09:03 Dose: 20 mg Ferrous Sulfate (Ferrous Sulfate 324 Mg Tablet.Dr) 324 mg PO DAILY [facility] Last Admin: 01/19/22 09:03 Dose: 324 mg Furosemide (Furosemide 40 Mg/4 Ml Vial) 40 mg IVPUSH BID@0900,1800 [facility]; Protocol Last Admin: 01/19/22 09:05 Dose: 40 mg Glucose (Glucose Gel 15 Gm Gel..Gram.) 15 gm PO Q15M PRN; Protocol PRN Reason: per Hypoglycemia Standing Ord. Diltiazem HCl 125 mg/ Sodium (Chloride) 125 mls @ 0 mls/hr IVCONT .Q0M [facility]; Protocol Last Titration: 01/19/22 00:09 Dose: Infused Insulin Glargine (Insulin Glargine,Hum.Rec.Anlog 100 Unit/Ml 10 Ml Vial) 14 unit SUBCUT BEDTIME [facility] Last Admin: 01/18/22 21:22 Dose: 14 unit Insulin Human Lispro (Insulin Lispro 100 Unit/Ml 3 Ml Vial) 0 unit SUBCUT QIDACHS [facility]; Protocol Last Admin: 01/19/22 09:04 Dose: 2 unit Latanoprost (Latanoprost 0.005 % Ophth Patricia 2.5 Ml Drops) 1 drop EYE-RIGHT BEDTIME [facility] Last Admin: 01/18/22 22:30 Dose: Not Given Lisinopril (Lisinopril 10 Mg Tablet) 10 mg PO DAILY [facility]; Protocol Last Admin: 01/19/22 09:03 Dose: 10 mg Ondansetron HCl (Ondansetron Hcl 4 Mg/2 Ml Vial) 4 mg IVPUSH Q8H PRN PRN Reason: Nausea and Vomiting Last Admin: 01/18/22 17:16 Dose: 4 mg Pharmacy Consult (Consult Rx Perform Med Rec) 1 each MISCELLANE ONCE PRN PRN Reason: Consult order Rivaroxaban (Rivaroxaban 20 Mg Tablet) 20 mg PO DAILY [facility] Last Admin: 01/19/22 09:02 Dose: 20 mg Senna (Sennosides 8.6 Mg Tablet) 17.2 mg PO BEDTIME PRN PRN Reason: Constipation Sertraline HCl (Sertraline Hcl 50 Mg Tablet) 50 mg PO DAILY [facility] Last Admin: 01/19/22 09:03 Dose: 50 mg Sodium Chloride (0.9 % Sodium Chloride Flush 3 Ml Syringe) 3 ml IVFLUSH QSHIFT [facility] Last Admin: 01/19/22 09:05 Dose: 3 ml Timolol Maleate (Timolol Maleate 0.5 % Oph Patricia 5 Ml Drbtl) 1 drop EYE-RIGHT BID [facility] Last Admin: 01/19/22 09:04 Dose: 1 drop Home Medications Medication Instructions Recorded Confirmed Last Taken Type atorvastatin 80 mg tablet 1 tab PO DAILY 01/18/22 01/18/22 01/17/22 History carvedilol 12.5 mg tablet 1 tab PO BID 01/18/22 01/18/22 01/17/22 History cyanocobalamin (vitamin B-12) 1,000 mcg PO DAILY 01/18/22 01/18/22 01/17/22 History 1,000 mcg tablet famotidine 20 mg tablet 1 tab PO BID 01/18/22 01/18/22 01/17/22 History ferrous sulfate 324 mg (65 mg 324 mg PO DAILY 01/18/22 01/18/22 01/17/22 History iron) tablet,delayed release furosemide 20 mg tablet 2 tab PO DAILY 01/18/22 01/18/22 01/17/22 History glipizide 10 mg tablet, extended 1 tab PO BID 01/18/22 01/18/22 01/17/22 History release 24 hr insulin detemir U-100 100 unit/mL 20 unit subcut BEDTIME 01/18/22 01/18/22 01/17/22 History (3 mL) subcutaneous pen (Levemir FlexTouch U-100 Insulin) lisinopril 10 mg tablet 1 tab PO DAILY 01/18/22 01/18/22 01/17/22 History metformin 1,000 mg tablet 1 tab PO DAILY 01/18/22 01/18/22 01/17/22 History rivaroxaban 20 mg tablet (Xarelto) 1 tab PO DAILY 01/18/22 01/18/22 01/17/22 History sertraline 50 mg tablet 1 tab PO DAILY 01/18/22 01/18/22 01/17/22 History Physical Exam Vital Signs: Vital Signs: Last Vital Signs Temp 97.9 F 01/18/22 19:38 Pulse 73 01/19/22 09:24 Resp 22 H 01/19/22 09:24 BP 122/76 01/19/22 09:24 Pulse Ox 96 01/19/22 09:24 O2 Del Method 01/19/22 09:24 O2 Flow Rate 4 01/19/22 09:24 BMI result Body Mass Index 26.6 Const: General: cooperative, comfortable, alert, awake, in distress moderate and respiratory and tired appearing Nutritional Appearance: average body habitus Orientation/consciousness: patient oriented x3 HEENT: Head: Yes normocephalic and Yes atraumatic Neck: Neck: Yes trachea midline, Yes supple and Yes JVD Chest: Chest palpation & inspection: normal inspection of the chest and other (Well-healed sternotomy scar) Resp: Effort & Inspection: normal respiratory effort Auscultation: rales bilateral 2/[address] Cardio: Jugular venous distension: JVD Palpation: abnormal PMI displaced PMI Rate: regular rate Rhythm: abnormal rhythm irregularly irregular Heart sounds: S1 normal heart sound present, S2 normal heart sound present, no click, no gallops and Murmur heart sound present systolic early GI: Inspection: Yes distended Auscultation: normal bowel sounds Skin: General skin exam: no rashes or lesions noted and ecchymosis Neuro: General: patient oriented x3 and no focal motor deficits Extrem: General: No clubbing, No cyanosis and Yes edema Psych: Appearance: grossly normal Objective Labs and Meds Result diagrams: 01/18/22 09:27 01/19/22 04:26 Lab results: Laboratory Results - last 24 hr 01/18/22 01/18/22 01/18/22 09:27 09:27 09:27 WBC 9.2 RBC 3.77 L Hgb 11.4 L Hct 36.9 L MCV 97.9 MCH 30.2 MCHC 30.9 L RDW 20.7 H Plt Count 180 D MPV 9.0 L Immature Gran % (Auto) 0.7 H Neut % (Auto) 77.7 H Lymph % (Auto) 9.6 L [place] % (Auto) 8.4 Eos % (Auto) 3.2 Baso % (Auto) 0.4 Lymph # (Auto) 0.9 L [place] # (Auto) 0.8 Eos # (Auto) 0.3 Baso # (Auto) 0.0 Abs Immat Gran (auto) 0.06 H Absolute Neuts (auto) 7.2 Absolute Nucleated RBC 0.000 Nucleated RBC % (auto) 0.0 PT INR APTT VBG pH VBG pCO2 VBG pO2 VBG HCO3 VBG O2 Saturation VBG Base Excess Sodium 138 Potassium 4.2 Chloride 104 Carbon Dioxide 23 Anion Gap 15 BUN 30 H Creatinine 1.19 Estim Creat Clear Calc 45.4 Estimated GFR 59 POC Glucose Random Glucose 345 H Lactic Acid 1.6 Calcium 8.8 Magnesium 2.3 Total Bilirubin 1.8 H Direct Bilirubin 0.9 H AST 33 ALT 48 H Alkaline Phosphatase 124 H Troponin I High Sens B-Natriuretic Peptide Total Protein 7.0 Albumin 3.4 L Procalcitonin COVID-19 (ANNALISE) COVID-19 Clin [facility] 01/18/22 01/18/22 01/18/22 09:27 09:27 09:27 WBC RBC Hgb Hct MCV MCH MCHC RDW Plt Count MPV Immature Gran % (Auto) Neut % (Auto) Lymph % (Auto) [place] % (Auto) Eos % (Auto) Baso % (Auto) Lymph # (Auto) [place] # (Auto) Eos # (Auto) Baso # (Auto) Abs Immat Gran (auto) Absolute Neuts (auto) Absolute Nucleated RBC Nucleated RBC % (auto) PT INR APTT VBG pH VBG pCO2 VBG pO2 VBG HCO3 VBG O2 Saturation VBG Base Excess Sodium Potassium Chloride Carbon Dioxide Anion Gap BUN Creatinine Estim Creat Clear Calc Estimated GFR POC Glucose Random Glucose Lactic Acid Calcium Magnesium Total Bilirubin Direct Bilirubin AST ALT Alkaline Phosphatase Troponin I High Sens 40.2 H B-Natriuretic Peptide 2911 H Total Protein Albumin Procalcitonin 0.02 COVID-19 (ANNALISE) Negative COVID-19 [employer] See Note 01/18/22 01/18/22 01/18/22 11:42 11:47 13:25 WBC RBC Hgb Hct MCV MCH MCHC RDW Plt Count MPV Immature Gran % (Auto) Neut % (Auto) Lymph % (Auto) [place] % (Auto) Eos % (Auto) Baso % (Auto) Lymph # (Auto) [place] # (Auto) Eos # (Auto) Baso # (Auto) Abs Immat Gran (auto) Absolute Neuts (auto) Absolute Nucleated RBC Nucleated RBC % (auto) PT 14.1 H INR 1.2 H APTT 27.1 VBG pH 7.40 VBG pCO2 39 VBG pO2 65 VBG HCO3 25 VBG O2 Saturation 88.0 VBG Base Excess 0.5 Sodium Potassium Chloride Carbon Dioxide Anion Gap BUN Creatinine Estim Creat Clear Calc Estimated GFR POC Glucose 253 H Random Glucose Lactic Acid Calcium Magnesium Total Bilirubin Direct Bilirubin AST ALT Alkaline Phosphatase Troponin I High Sens B-Natriuretic Peptide Total Protein Albumin Procalcitonin COVID-19 (ANNALISE) COVID-19 [employer] 01/18/22 01/18/22 01/18/22 13:57 17:31 21:21 WBC RBC Hgb Hct MCV MCH MCHC RDW Plt Count MPV Immature Gran % (Auto) Neut % (Auto) Lymph % (Auto) [place] % (Auto) Eos % (Auto) Baso % (Auto) Lymph # (Auto) [place] # (Auto) Eos # (Auto) Baso # (Auto) Abs Immat Gran (auto) Absolute Neuts (auto) Absolute Nucleated RBC Nucleated RBC % (auto) PT INR APTT VBG pH VBG pCO2 VBG pO2 VBG HCO3 VBG O2 Saturation VBG Base Excess Sodium Potassium Chloride Carbon Dioxide Anion Gap BUN Creatinine Estim Creat Clear Calc Estimated GFR POC Glucose 286 H 389 H* Random Glucose Lactic Acid Calcium Magnesium Total Bilirubin Direct Bilirubin AST ALT Alkaline Phosphatase Troponin I High Sens 45.2 H B-Natriuretic Peptide Total Protein Albumin Procalcitonin COVID-19 (ANNALISE) COVID-[employer]Q 01/19/22 01/19/22 01/19/22 04:26 04:26 06:54 WBC RBC Hgb Hct MCV MCH MCHC RDW Plt Count MPV Immature Gran % (Auto) Neut % (Auto) Lymph % (Auto) [place] % (Auto) Eos % (Auto) Baso % (Auto) Lymph # (Auto) [place] # (Auto) Eos # (Auto) Baso # (Auto) Abs Immat Gran (auto) Absolute Neuts (auto) Absolute Nucleated RBC Nucleated RBC % (auto) PT INR APTT VBG pH VBG pCO2 VBG pO2 VBG HCO3 VBG O2 Saturation VBG Base Excess Sodium 138 Potassium 4.4 Chloride 101 Carbon Dioxide 28 Anion Gap 13 BUN 30 H Creatinine 1.27 Estim Creat Clear Calc 42.5 Estimated GFR 55 POC Glucose 204 H Random Glucose 231 H Lactic Acid Calcium 8.4 Magnesium 2.2 Total Bilirubin Direct Bilirubin AST ALT Alkaline Phosphatase Troponin I High Sens B-Natriuretic Peptide 2911 H Total Protein Albumin Procalcitonin COVID-19 (ANNALISE) COVID-19 [employer] 01/19/22 08:55 WBC RBC Hgb Hct MCV MCH MCHC RDW Plt Count MPV Immature Gran % (Auto) Neut % (Auto) Lymph % (Auto) [place] % (Auto) Eos % (Auto) Baso % (Auto) Lymph # (Auto) [place] # (Auto) Eos # (Auto) Baso # (Auto) Abs Immat Gran (auto) Absolute Neuts (auto) Absolute Nucleated RBC Nucleated RBC % (auto) PT INR APTT VBG pH VBG pCO2 VBG pO2 VBG HCO3 VBG O2 Saturation VBG Base Excess Sodium Potassium Chloride Carbon Dioxide Anion Gap BUN Creatinine Estim Creat Clear Calc Estimated GFR POC Glucose 181 H Random Glucose Lactic Acid Calcium Magnesium Total Bilirubin Direct Bilirubin AST ALT Alkaline Phosphatase Troponin I High Sens B-Natriuretic Peptide Total Protein Albumin Procalcitonin COVID-19 (ANNALISE) COVID-19 Clin Com Imaging Radiologist's impression: Impressions Chest X-Ray 01/18/22 09:45 IMPRESSION: Mild prominence of the pulmonary vasculature could be baseline for the patient, but appears mildly increased compared to the previous study. Mild congestion cannot be excluded. Venous Duplex 01/18/22 11:17 IMPRESSION: 1. No evidence for deep venous thrombosis in the visualized veins of the bilateral lower extremity's. 2. Mild to moderate subcutaneous edema in the calves bilaterally. Assessment and Plan (1) Heart failure, systolic, with acute decompensation: Status: Acute Patient presents with we can have history of progressive shortness of breath and evidence of fluid overload consistent with decompensated congestive heart failure with significant elevated BNP in a 2900 range with chest x-ray as well as clinical findings consistent with congestive heart failure. His echocardiogram shows severe LV systolic dysfunction with LVEF 20-25 % which is new compared to his prior echocardiogram from 2 years ago which had shown LVEF of about 45%. This could be ischemic and/or related to atrial fibrillation rapid ventricular response and tachycardia mediated cardiomyopathy. This is unclear at this point in time. His rate is better controlled and his breathing is improved but still appears to be significantly fluid overloaded at this point time. Will continue IV diuresis and switch him to Lasix drip at 5 mg an hour. He is currently on carvedilol and will continue the same and would switch his lisinopril to valsartan with eventual plan to switch him to Entresto therapy. At some point time once he is better compensated will require ischemic workup. This was discussed with him. Continue management of heart failure and provide education for heart failure. Strict intake and output chart needs to be pursued. Low-salt diet needs to be pursued. Discussed with the patient about the findings any understands management at this point in time. (2) Atrial fibrillation with rapid ventricular response: Status: Acute Atrial fibrillation rapid ventricular response on presentation could be due to decompensated congestive heart failure or may be the reason for his further worsening of LV systolic dysfunction with tachycardia mediated cardiomyopathy. Currently rate control with IV Cardizem. His IV Cardizem has been discontinued appropriately. I would avoid using Cardizem in the future given his severe LV systolic dysfunction. Continue carvedilol therapy which can be further up titrated as blood pressure tolerates and would digitalize him with digoxin 0.25 mg IV q.6 hours x3 doses. If there is difficulty in improving his heart failure syndrome may require synchronized cardioversion as he has been on oral anticoagulation therapy continuously but will most likely require antiarrhythmic drug support with amiodarone. Will continue follow clinically about this [facility] plan. (3) Ischemic cardiomyopathy: Status: Acute Severe LV systolic dysfunction consistent with most likely ischemic cardiomyo meme with prior mild LV systolic dysfunction. There is sudden worsening in his LV systolic function as mentioned above this could be either related to graft closure or probably tachycardia mediated. Will continue to manage his heart failure as above but will start him on Diovan therapy with eventual plan to switch him to Entresto therapy. Continue carvedilol therapy for neurohormonal modulation. Once he tolerates this therapy will additionally add Aldactone therapy. Continue monitor his electrolytes closely. (4) CAD (coronary artery disease): Status: Acute Prior history of CAD with 4 vessel coronary artery bypass grafting remotely in 2008. No active symptoms of chest discomfort and no clear evidence of acute coronary syndrome at this point in time. Heart this possible that his LV systolic dysfunction is due to graft closure and this will require ischemic workup at some point time 1 is more stable from heart failure perspective. Continue high-intensity statin therapy. Continue low-dose aspirin therapy. Will continue to follow with you. Thank you for allowing me to partake in his care. Greater than 40 minutes was spent in managing his complex care. Procedures Date of Service Date of Service: 01/19/22
[2022-01-19 10:56] LABS: Glucose, Whole Blood 267 mg/dL (60-115)
--- NOTE | 2022-01-19 11:08 | HO.PM.IMPN ---
Subjective Subjective Date of Service: 01/19/22 Interval History: Breathing has improved though still has dyspnea/orthopnea In AF, rate now in 70s off diltiazem gtt Still edematous Negative 1.5L thus far No chest pain Review of Systems Review of Systems: Yes all other systems are reviewed and are negative Physical Exam Vital Signs: Vital Signs: Last Vital Signs Temp 97.2 F 01/19/22 10:11 Pulse 68 01/19/22 10:11 Resp 20 01/19/22 10:11 BP 90/62 01/19/22 10:11 Pulse Ox 98 01/19/22 10:11 O2 Del Method 01/19/22 10:11 O2 Flow Rate 4 01/19/22 10:11 BMI result Body Mass Index 28.2 Gen: mild respiratory distress HEENT: R eye hyphema Neck: supple, JVD present Lungs: diminished bilaterally Heart: irregularly irregular, rate-controlled no murmurs Abd: soft, non-tender, non-distended Ext: 2+ pitting lower extremity edema bilaterally with weeping blisters Skin: warm/well-perfused Neuro: alert and oriented x3, no focal findings Psych: appropriate affect Objective Data Active Medications Acetaminophen (Acetaminophen 325 Mg Tablet) 650 mg PO Q6H PRN PRN Reason: Pain, Mild (Pain Scale 1-3) Last Admin: 01/18/22 21:15 Dose: 650 mg Documented By: MARY Atorvastatin Calcium (Atorvastatin Calcium 80 Mg Tablet) 80 mg PO DAILY [facility] Last Admin: 01/19/22 09:03 Dose: 80 mg Documented By: ANUM Carvedilol (Carvedilol 12.5 Mg Tablet) 12.5 mg PO BID [facility]; Protocol Last Admin: 01/19/22 09:02 Dose: 12.5 mg Documented By: ANUM Cyanocobalamin (Cyanocobalamin (Vitamin B-12) 1,000 Mcg Tablet) 1,000 mcg PO DAILY [facility] Last Admin: 01/19/22 09:03 Dose: 1,000 mcg Documented By: ANUM Dextrose (Dextrose 50 % 25 Gm/50 Ml Syringe) 25 gm IVPUSH Q15M PRN; Protocol PRN Reason: per Hypoglycemia Standing Ord. Digoxin (Digoxin 0.5 Mg/2 Ml Ampul) 0.25 mg IVPUSH Q6H [facility] Stop: 01/20/22 00:01 Docusate Sodium (Docusate Sodium 100 Mg Capsule) 100 mg PO BID PRN PRN Reason: constipation Empagliflozin (Empagliflozin 10 Mg Tablet) 10 mg PO DAILY [facility] Erythromycin (Erythromycin Base 0.5% Oph Oin 1 Gm Tube) 1 cm EYE-RIGHT TID [facility] Last Admin: 01/19/22 09:04 Dose: 1 cm Documented By: ANUM Famotidine (Famotidine 20 Mg Tablet) 20 mg PO BID [facility] Last Admin: 01/19/22 09:03 Dose: 20 mg Documented By: ANUM Ferrous Sulfate (Ferrous Sulfate 324 Mg Tablet.Dr) 324 mg PO DAILY [facility] Last Admin: 01/19/22 09:03 Dose: 324 mg Documented By: ANUM Glucose (Glucose Gel 15 Gm Gel..Gram.) 15 gm PO Q15M PRN; Protocol PRN Reason: per Hypoglycemia Standing Ord. Diltiazem HCl 125 mg/ Sodium (Chloride) 125 mls @ 0 mls/hr IVCONT .Q0M [facility]; Protocol Last Titration: 01/19/22 00:09 Dose: 0 mg/hr, 0 mls/hr Documented By: MARY Furosemide 200 mg/ Sodium (Chloride) 100 mls @ 2.5 mls/hr IVCONT .Q24H [facility] Insulin Glargine (Insulin Glargine,Hum.Rec.Anlog 100 Unit/Ml 10 Ml Vial) 14 unit SUBCUT BEDTIME [facility] Last Admin: 01/18/22 21:22 Dose: 14 unit Documented By: MARY Insulin Human Lispro (Insulin Lispro 100 Unit/Ml 3 Ml Vial) 0 unit SUBCUT QIDACHS [facility]; Protocol Last Admin: 01/19/22 09:04 Dose: 2 unit Documented By: ANUM Latanoprost (Latanoprost 0.005 % Ophth Patricia 2.5 Ml Drops) 1 drop EYE-RIGHT BEDTIME [facility] Last Admin: 01/18/22 22:30 Dose: Not Given Documented By: MARY Non-Admin Reason: Med Not Available Ondansetron HCl (Ondansetron Hcl 4 Mg/2 Ml Vial) 4 mg IVPUSH Q8H PRN PRN Reason: Nausea and Vomiting Last Admin: 01/18/22 17:16 Dose: 4 mg Documented By: JOSE Pharmacy Consult (Consult Rx Perform Med Rec) 1 each MISCELLANE ONCE PRN PRN Reason: Consult order Rivaroxaban (Rivaroxaban 20 Mg Tablet) 20 mg PO DAILY [facility] Last Admin: 01/19/22 09:02 Dose: 20 mg Documented By: ANUM Senna (Sennosides 8.6 Mg Tablet) 17.2 mg PO BEDTIME PRN PRN Reason: Constipation Sertraline HCl (Sertraline Hcl 50 Mg Tablet) 50 mg PO DAILY [facility] Last Admin: 01/19/22 09:03 Dose: 50 mg Documented By: ANUM Sodium Chloride (0.9 % Sodium Chloride Flush 3 Ml Syringe) 3 ml IVFLUSH QSHIFT [facility] Last Admin: 01/19/22 09:05 Dose: 3 ml Documented By: ANUM Timolol Maleate (Timolol Maleate 0.5 % Oph Patricia 5 Ml Drbtl) 1 drop EYE-RIGHT BID [facility] Last Admin: 01/19/22 09:04 Dose: 1 drop Documented By: ANUM Valsartan (Valsartan 40 Mg Tablet) 40 mg PO BID [facility]; Protocol Labs CBC & Chem 7: 01/18/22 09:27 01/19/22 04:26 Labs: Laboratory Results - last 24 hr 01/18/22 01/18/22 01/18/22 11:42 11:47 13:25 PT 14.1 H INR 1.2 H APTT 27.1 VBG pH 7.40 VBG pCO2 39 VBG pO2 65 VBG HCO3 25 VBG O2 Saturation 88.0 VBG Base Excess 0.5 Anion Gap Estim Creat Clear Calc Estimated GFR POC Glucose 253 H Random Glucose Calcium Magnesium B-Natriuretic Peptide 01/18/22 01/18/22 01/19/22 17:31 21:21 04:26 PT INR APTT VBG pH VBG pCO2 VBG pO2 VBG HCO3 VBG O2 Saturation VBG Base Excess Anion Gap 13 Estim Creat Clear Calc 42.5 Estimated GFR 55 POC Glucose 286 H 389 H* Random Glucose 231 H Calcium 8.4 Magnesium 2.2 B-Natriuretic Peptide 01/19/22 01/19/22 01/19/22 04:26 06:54 08:55 PT INR APTT VBG pH VBG pCO2 VBG pO2 VBG HCO3 VBG O2 Saturation VBG Base Excess Anion Gap Estim Creat Clear Calc Estimated GFR POC Glucose 204 H 181 H Random Glucose Calcium Magnesium B-Natriuretic Peptide 2911 H 01/19/22 10:53 PT INR APTT VBG pH VBG pCO2 VBG pO2 VBG HCO3 VBG O2 Saturation VBG Base Excess Anion Gap Estim Creat Clear Calc Estimated GFR POC Glucose 267 H Random Glucose Calcium Magnesium B-Natriuretic Peptide TTE (01/18/22) 1. Severe LV systolic dysfunction with LVEF of 20-25% with ? ? restrictive filling pattern? 2. At least moderately dilated left atrium ? 3. Ndat-ld-mxdajmho mitral and tricuspid regurgitation ? 4. Mild aortic stenosis cannot be ruled out on this study? 5. Severe elevation of right ventricular systolic pressure as? ? well as right atrial pressures ? 6. No gross pericardial effusion ? Assessment and Plan (1) Ischemic cardiomyopathy: Status: Acute (2) Heart failure, systolic, with acute decompensation: Status: Acute [facility] hospital d#2 81yo M with CAD s/p 4v CABG (2008), HTN, HLD, hx CVA x2, AF on rivaroxaban, and DM2 on insulin presenting with worsening exertional dyspnea, orthopnea, and leg edema and found to be hypoxic and volume overloaded, and in AF/RVR. His prior medical scientist, Dr Jay, moved away and he does not yet have a new medical scientist. He also developed a hyphema in his R eye 1 week prior to admission and did not seek ophthalmologic care. # paroxysmal AF/RVR - d/c diltiazem gtt. give 3 doses IV digoxin. continue carvedilol. continue rivaroxaban for anticoagulation. Cardiology following; may require DC vs pharmacologic cardioversion if AF is contributing significantly to his CHF. # acute HFrEF - due to AF vs. ischemic; will need eventual ischemic workup, possibly as inpatient. in meanwhile, he remains significantly fluid-overloaded; will change furosemide to continuous infusion. monitor BMP/Mg/BNP, I+O/weight. d/c lisinopril and allow to wash out of system 36 hr for eventual transition to Entresto; will use valsartan alone 40 mg bid in the meanwhile. continue carvedilol. add empagliflozin. eventually to add spironolactone after Entresto as well if BP tolerates. Cardiology following. # acute hypoxic resp failure - due to CHF; wean O2 as tolerated # HTN - continue carvedilol, change MANUEL-I to ARB as above # CAD, s/p 4V CABG # hx CVA x2 - continue statin, b-malissa, rivaroxaban, ARB # R eye hyphema and cornela abrasion delayed presentation - timolol + latanoprost drops, erythromycin ointment, outpt f/u with Dr Burdick # DM2, A1c 10 (11/01/21) - continue basal insulin; hold OHGs; give correction-dose prandial insulin; add empagliflozin as above # VTE prophylaxis: rivaroxaban In my clinical judgment, the patient requires continued hospitalization for the following reasons: hypoxia, IV diuresis Quality Stroke Does the patient have a stroke diagnosis?: No VTE Prior VTE?: No VTE Risk Level:: Medical - moderate - high VTE Device Contraindication: Procedure Contraindicated VTE Drug Contraindication: N/A - Med Ordered
--- NOTE | 2022-01-19 12:09 | PC.NURSE ---
pts bp soft, Alex aware. Medications on hold. Pt asymptomatic.WOB still increased
[2022-01-19] MEDS: Empagliflozin 10 MG TABLET PO (12:26)
[2022-01-19] MEDS: Digoxin 0.5 MG/2 ML AMPUL 0.25 MG IVPUSH (13:00)
--- NOTE | 2022-01-19 13:20 | PC.NURSE ---
Patients bp til lsoft at 88/50, deep inspirations, and increased WOB no change from admission. Patient denies any complaints at this time. Although appears sleepy. Patient arousable to verbal stimuli.
--- NOTE | 2022-01-19 13:41 | MHC.CM.PN ---
Addendum entered by Amelia Espinoza 01/19/22 13:43: pt is joaquina siddiqi x4 and will have transport when dcd Original Note: met with pt before being transferred to icu pt explins that he lives with his and they had no previous servceis dc plans tbd by pts medical progress cm will follow
--- NOTE | 2022-01-19 14:16 | PC.NURSE ---
Patient transferred to ICU safetly
[2022-01-19] MEDS: Morphine Sulfate 2 MG/ML CARTRIDGE IVPUSH ×2 (14:25→15:25)
--- NOTE | 2022-01-19 14:27 | P.EN_ITS ---
Event Note Date of Service: 01/19/22 Event Note: Patient noted to have of blood pressure with systolic blood pressure in the 80s. Complains of mild headache. No dizziness. Continues to be short of breath and heart failure. Heart rate is controlled. At this time we discussed with Dr. Eckert about transferring patient to ICU which she graciously accepted and will treat him with low-dose vasopressors to maintain a systolic blood pressure and continue with diuresis. Will also start him on low-dose dobutamine once his blood pressure improves at 2.5 mcg/kg/minute. Continue to monitor his heart rate. Will use digoxin for better rate control. Overall prognosis is guarded. Patient shows any significant fur ther deterioration may need transfer to [facility].
[2022-01-19] MEDS: DOBUTamine HCL/D5W 500 MG/250 ML IV.SOLN 7.14 MG IVCONT (14:56)
[2022-01-19] MEDS: Furosemide 200 MG in 0.9 % Sodium Chloride 80 ML IVCONT (14:59)
[2022-01-19 16:22] LABS: Appearance Urine Clear; Color Urine Yellow; Glucose Urine UA Negative (Negative); Leukocyte Esterase Urine Negative (Negative); Nitrite Urine Negative (Negative); Urine Blood Negative (Negative); Urine Ketones Negative (Negative); Urine Protein Negative (Neg-Trace)
[2022-01-19] MEDS: Atropine Sulfate 1 % Ophth Sol 2 ML BOTTLE 1 DROP EYE-RIGHT (16:28)
--- NOTE | 2022-01-19 16:47 | PM.CCPN ---
Subjective Subjective Date of Service: 01/19/22 Interval History: Mr. Clayton was transferred to ICU for intensive management of decompensated congestive heart failure. Patient is 81-year-old man with past medical history of CAD s/p 4 vessel CABG in 2008, HTN, CHF on Lasix 60mg daily, lisinopril, and Coreg, HLD, hx CVA x2, paroxysmal AFib on rivaroxaban, and DM2 on insulin. Has been seeing his PCP for weeping blisters and edema of his LEs. ?Noted increased dyspnea, orthopnea, increased swelling x 2 weeks. No change in his medications. ?No chest pain or palpitations. Also noted R eye redness with no h/o trauma with worsening loss of vision in R eye for 1 week, never saw an eye doctor. Presented ambulatory to the ED yesterday.? He was found to be hypoxemic with room air SpO2 of 89%.? He was in rapid AF in the 130s.? He was dyspneic with RR 28-31.? CXR showed pulmonary vascular congestion and BNP was elevated to 2911.? EKG showed no acute ischemia, poss old IWMI and ALWMI.? He was given 20, then 40 mg of IV Lasix.? He was given 10 mg of IV diltiazem then started on an infusion. The ED physician did a fluorescein slit lamp examination and noted hyphema on the right with pinpoint corneal ulcer; pressures were elevated at 61.? She spoke to the on-call dining room busser, Dr Burdick, who recommended supportive care with timolol, latanoprost, and erythromycin given the delayed presentation; OK to resume rivaroxaban. (This is from Dr. Griffiths?s ED note:? ?call to Dr. Burdick 1036am for R eye - timolol drops daily , latanoprost at night, one time iodopine drops, erythromycin ointment TID, follow up in office, given delayed presentation watch and wait - continue xarelto. Ointment must be applied after eye drops Family aware given delayed presentation risk of permanent vision loss?) Echo showed normal LV wall thickness, with mild LV dilatation.? LV systolic function was severely decreased with severe global hypokinesis, EF 20-25%.? RV cavity size was normal, with low normal RV systolic function.? The atria were mild to moderately dilated.? There was mild and mild AI.? There was mild-moderate MR.? There was mild-moderate TR, with CWD measuring 3.9m/s, the IVC was dilated with no inspiratory collapse.? RVSP estimate was 78mm.? Prior echo 2 years ago showed an EF of 45%. He was seen this morning by Dr. Pugh, who thought he was in decompensated heart failure.? His lisinopril was switched to valsartan and he was put on a Lasix drip.? Dr. Pugh called me this afternoon and requested transfer to the ICU for intensive management and dobutamine. On arrival to the ICU, the patient was moderately tachypneic with mild-moderately increased work of breathing, and marked dyspnea on exertion with moving around in bed.? He is fully awake and alert.? Otherwise looks nontoxic.? Heart rate is 68, atrial fibrillation.? Blood pressure 89/61.? Respiratory rate mid 20s, sat 93-95% on 2 L oxygen by nasal cannula.? He is afebrile.? Notably, his pupils are different colors.? His left eye is blue; the right eye is orange-brown.? Has almost no vision out of the right eye.? 4-5 cm bulging JVD at 40?.? Auscultation of the chest shows rales up to the apices bilaterally.? Normal expiratory phase.? Heart tones are soft.? Heart rate and rhythm are irregular, I heard no murmur or gallops.? Abdomen is benign.? The patient has 1-2 +pitting edema in the legs and centrally, although no gross anasarca. LABORATORY DATA.? Below. IMPRESSION: 1. Ischemic dilated CMOP. 2. Decompensated congestive heart failure.? Current blood pressure is perfect for his level of cardiomyopathy.? No need for pressors at this time.? Hold Coreg and valsartan. ?Starting Lasix drip, and adding dobutamine.? Titrate up to 10 mcg if tolerated.? Eventually switch to Entresto.? Eventually needs ischemic w/u. 3. Hypoxemic respiratory failure.? Secondary to above.? Acute treatment with oxygen, morphine and Lasix. 4. AFib w RVR.? Now slowed after digoxin.? Hold further doses.? Check dig level in AM.? Continue Xarelto.? Cardioversion is a consideration if we cannot improve his heart failure. 5. HTN.? Eventually continue Coreg and switch to Entresto. 6. DM2.? Continue basal insulin; give correction-dose prandial insulin; added Jardiance. 7. ? Hyphema in R eye one week prior to admission and did not seek ophthalmologic care.? Treating w Timolol + latanoprost drops, erythromycin ointment, outpt f/u with Dr Burdick.? I spoke with Dr. Burdick on the phone, emphasizing multiple times that this man was going to lose the vision in his eye, and asking repetitively if there is anything else that can be done, should we transfer him somewhere for advanced care, etc.? He will come over to the ICU and see the patient tonight. 8. Hx CVA x2.? Continue statin, b-malissa, rivaroxaban, antihypertensive. 9. VTE prophylaxis: ?Xarelto. Critical care time (including full chart rev, mult convers with Dr. Pugh and Dr. Johnson, extended telephone convers with Dr. Burdick, hosp course summary, mult visits to the bedside):? 120+ min Critical Care Time (minutes): 120 Physical Exam Vital Signs: Vital Signs: Last Vital Signs Temp 97.0 F 01/19/22 16:00 Pulse 84 01/19/22 16:00 Resp 19 01/19/22 16:00 BP 108/63 01/19/22 16:00 Pulse Ox 94 01/19/22 16:00 O2 Del Method 01/19/22 16:00 O2 Flow Rate 2 01/19/22 16:00 BMI result Body Mass Index 28.2 Objective Data Labs CBC & Chem 7: 01/18/22 09:27 01/19/22 04:26 Labs: Laboratory Results - last 24 hr 01/18/22 01/18/22 01/19/22 17:31 21:21 04:26 Sodium 138 Potassium 4.4 Chloride 101 Carbon Dioxide 28 Anion Gap 13 BUN 30 H Creatinine 1.27 Estim Creat Clear Calc 42.5 Estimated GFR 55 POC Glucose 286 H 389 H* Random Glucose 231 H Calcium 8.4 Magnesium 2.2 B-Natriuretic Peptide Urine Color Urine Appearance Urine pH Ur Specific [place] Urine Protein Urine Glucose (UA) Urine Ketones Urine Blood Urine Nitrite Ur Leukocyte Esterase 01/19/22 01/19/22 01/19/22 04:26 06:54 08:55 Sodium Potassium Chloride Carbon Dioxide Anion Gap BUN Creatinine Estim Creat Clear Calc Estimated GFR POC Glucose 204 H 181 H Random Glucose Calcium Magnesium B-Natriuretic Peptide 2911 H Urine Color Urine Appearance Urine pH Ur Specific [place] Urine Protein Urine Glucose (UA) Urine Ketones Urine Blood Urine Nitrite Ur Leukocyte Esterase 01/19/22 01/19/22 10:53 16:12 Sodium Potassium Chloride Carbon Dioxide Anion Gap BUN Creatinine Estim Creat Clear Calc Estimated GFR POC Glucose 267 H Random Glucose Calcium Magnesium B-Natriuretic Peptide Urine Color Yellow Urine Appearance Clear Urine pH 5.0 Ur Specific [place] 1.010 Urine Protein Negative Urine Glucose (UA) Negative Urine Ketones Negative Urine Blood Negative Urine Nitrite Negative Ur Leukocyte Esterase Negative Microbiology Microbiology Results: Microbiology 01/18/22 11:42 Blood - Venous Blood Culture - Preliminary No growth after 24 hours. 01/18/22 09:27 Blood - Venous Blood Culture - Preliminary No growth after 24 hours. Quality Stroke Does the patient have a stroke diagnosis?: No VTE Prior VTE?: No VTE Risk Level:: Medical - moderate - high VTE Device Contraindication: Procedure Contraindicated VTE Drug Contraindication: N/A - Med Ordered Critical Care Time Critical Care Time (minutes): 120
[2022-01-19 17:59] LABS: Glucose, Whole Blood 163 mg/dL (60-115)
[2022-01-19] MEDS: Magnesium Sulfate/H2O 2 GM/50 ML PIGGYBACK IV (20:52)
[2022-01-19] MEDS: Potassium Chloride Packet 20 MEQ PACKET 40 MEQ PO (20:53)
[2022-01-19] MEDS: Insulin Glargine,Hum.rec.anlog 100 UNIT/ML 10 ML VIAL 14 UNIT SUBCUT (20:55)
[2022-01-19 21:00] LABS: Glucose, Whole Blood 156 mg/dL (60-115)
[2022-01-20] VITALS (25 sets, daily range): BP systolic 82–132; BP diastolic 45–85; PULSE 83–109; RESP 12–25; TEMP 36.2–37.4; O2SAT 90–100; BMI 25.9
[2022-01-20] MEDS: DOBUTamine HCL/D5W 500 MG/250 ML IV.SOLN 23.79 MG IVCONT ×2 (01:21→10:57)
--- NOTE | 2022-01-20 03:07 | PC.NURSE ---
PT A&O X3. DENIES PAIN. NO ACUTE RESP DISTRESS. LASIX GTT INFUSING AT 5 MG/HR. U/O HAS BEEN GOOD, 250-325 ML/HR. SBP LOW 100'S. DOBUTAMINE GTT AT 10 MCG/KG/MIN. MONITOR SHOWS AFIB, HR 80'S-90'S, OCC PVC'S NOTED. LUNGS WITH CRACKLES BILAT BASES., PT IN BED WITH HOB UP 30-45 DEGREES. TURNED AND REPOSITIONED WITH BACK CARE GIVEN. DUE TO PREVIOUS CVA, PT'S MOVEMENT IS LIMITED BUT HE CAN TURN SIDE TO SIDE WITH ASSISTANCE. LOWER LEGS BILAT WITH OLD HEALED BLISTERS THAT HAVE OPENED UP AT ONE POINT BUT NOW ARE SCABBED OVER. LEGS OPEN TO AIR.
[2022-01-20] MEDS: timoloL maleate 0.5 % Oph Sol 5 ML DRBTL 1 DROP EYE-RIGHT ×2 (03:34→08:58)
[2022-01-20] MEDS: Latanoprost 0.005 % Ophth Sol 2.5 ML DROPS 1 DROP EYE-RIGHT ×2 (03:34→22:31)
[2022-01-20 05:39] LABS: Alanine Aminotransferase 35 U/L (0-40); Albumin Level 2.9 g/dL (3.5-5.0); Alkaline Phosphatase 111 U/L (39-117); Anion Gap 13 (12-20); Aspartate Amino Transferase 26 U/L (5-37); Bilirubin Total 1.4 mg/dL (0.0-1.0); Blood Urea Nitrogen 30 mg/dL (9-16); Calcium 8.5 mg/dL (8.4-10.2); Carbon Dioxide 34 mmol/L (22-29); Chloride 99 mmol/L (96-108); Estimated Glomerular Filt Rate 48; Glucose Random 160 mg/dL (60-115); Magnesium 2.4 mg/dL (1.6-2.6); Phosphorus 4.4 mg/dL (2.7-4.5); Potassium 4.1 mmol/L (3.3-5.1); Sodium 142 mmol/L (135-145)
[2022-01-20 05:41] LABS: Digoxin 0.3 ng/mL (0.8-2.0)
[2022-01-20 05:42] LABS: B Type Natriuretic Peptide 827 pg/mL (<100)
--- NOTE | 2022-01-20 06:41 | PC.NURSE ---
VENTI MASK APPLIED FOR LOW SATS DOWN TO 57-60'S DUE TO OBSERVED SLEEP APNEA. PT IS VERY SOUNDLY ASLEEP AND WHEN AWOKEN DURING THESE PERIODS OF DEEP SLEEP AND APNEA, IT TAKES TIME FOR HIM TO WAKE UP AND HE FALLS ASLEEP VERY QUICKLY. HE IS ORIENTED X3 AND FOLLOWS COMMANDS SUCH DEEP BREATHING BUT THEN FALLS BACK ASLEEP. VENTI MASK AT 40% O2.
[2022-01-20 07:25] LABS: Glucose, Whole Blood 292 mg/dL (60-115)
[2022-01-20] MEDS: Sertraline HCL 50 MG TABLET PO (08:07)
[2022-01-20] MEDS: Atorvastatin Calcium 80 MG TABLET PO (08:07)
[2022-01-20] MEDS: Erythromycin Base 0.5% Oph Oin 1 GM TUBE 1 CM EYE-RIGHT (08:07)
[2022-01-20] MEDS: Insulin Lispro 100 UNIT/ML 3 ML VIAL SUBCUT ×3 (08:08→20:36)
[2022-01-20] MEDS: Empagliflozin 10 MG TABLET PO (08:08)
[2022-01-20] MEDS: Ferrous Sulfate 324 MG TABLET.DR PO (08:08)
[2022-01-20] MEDS: Famotidine 20 MG TABLET PO ×2 (08:08→20:40)
[2022-01-20] MEDS: Rivaroxaban 20 MG TABLET PO (08:08)
[2022-01-20] MEDS: Cyanocobalamin (Vitamin B-12) 1,000 MCG TABLET 1000 MCG PO (08:08)
[2022-01-20] MEDS: Albumin Human 25 % 100 ML IV ×2 (08:12→10:36)
[2022-01-20] MEDS: Digoxin 0.5 MG/2 ML AMPUL 0.25 MG IVPUSH ×2 (10:39→14:02)
[2022-01-20] MEDS: Valsartan 40 MG TABLET 20 MG PO ×2 (10:51→20:40)
[2022-01-20] MEDS: acetaZOLAMIDE 250 MG TABLET 500 MG PO ×2 (10:53→20:44)
[2022-01-20] MEDS: 0.9 % Sodium Chloride Flush 3 ML SYRINGE IVFLUSH (10:54)
[2022-01-20] MEDS: oxyCODONE HCl Immed Release 5 MG TABLET PO (10:54)
--- NOTE | 2022-01-20 11:40 | PM.PNCARD ---
Subjective Subjective Date of Service: 01/20/22 Principal diagnosis: Decompensated congestive heart failure Interval history: Patient was transferred yesterday to ICU for low blood pressure and subsequently started on dobutamine drip which she is currently at 10 micrograms/kg per minute. Since yesterday he has had significant diuresis and has had negative balance overall of total 5 L. His creatinine is bumped up. His blood pressures remained stable and has never required any vasopressor agents. His heart rate initially was slow but and subsequently I is currently in 100 beats per minute in atrial fibrillation along with PVCs. Patient says he feels extremely well today. Breathing much better. Denies any chest pain. Leg edema is improved. His Lasix was reduced to 2.5 mg an hour this morning. He was also started on Diovan 20 mg b.i.d.. Review of Systems Constitutional: Reports no additional constitutional complaints Cardiovascular: Denies chest pain, Reports leg edema, Denies palpitations and Reports dyspnea on exertion Respiratory: Reports no additional respiratory complaints and Reports dyspnea on exertion Gastrointestinal: Reports no additional gastrointestinal complaints Genitourinary: Reports no additional male genitourinary complaints Musculoskeletal: Reports no additional musculoskeletal complaints Skin/Breast: Reports system reviewed and no additional complaints, except as docu Reports system reviewed and no additional complaints, except as documented Psychiatric: Reports no additional psychiatric complaints Endocrine: Reports no additional endocrine complaints and Denies palpitations Physical Exam Vital Signs: Last Vital Signs Temp 98.8 F 01/20/22 10:00 Pulse 99 01/20/22 11:00 Resp 19 01/20/22 11:00 BP 116/48 L 01/20/22 11:00 Pulse Ox 97 01/20/22 11:00 O2 Del Method 01/20/22 11:00 O2 Flow Rate 2 01/20/22 11:00 BMI result Body Mass Index 25.9 Const General: cooperative, comfortable, no acute distress, alert and awake Nutritional Appearance: overweight Orientation/consciousness: patient oriented x3 Neck Neck: Yes trachea midline, Yes supple and Yes no JVD Resp Effort & Inspection: normal respiratory effort Auscultation: no rales and diminished lung sounds Cardio Jugular venous distension: no JVD Rhythm: abnormal rhythm irregularly irregular Heart sounds: S1 normal heart sound present, S2 normal heart sound present, no click, no gallops and Murmur heart sound present GI Auscultation: normal bowel sounds Skin General skin exam: no rashes or lesions noted and ecchymosis Neuro General: patient oriented x3 and no focal motor deficits Extrem General: No clubbing, No cyanosis and Yes edema Objective Labs and Meds Result diagrams: 01/18/22 09:27 01/20/22 05:00 Lab results: Laboratory Results - last 24 hr 01/19/22 01/19/22 01/19/22 16:12 17:53 20:56 Sodium Potassium Chloride Carbon Dioxide Anion Gap BUN Creatinine Estim Creat Clear Calc Estimated GFR POC Glucose 163 H 156 H Random Glucose Calcium Phosphorus Magnesium Total Bilirubin AST ALT Alkaline Phosphatase B-Natriuretic Peptide Total Protein Albumin Urine Color Yellow Urine Appearance Clear Urine pH 5.0 Ur Specific [employer] [place] 1.010 Urine Protein Negative Urine Glucose (UA) Negative Urine Ketones Negative Urine Blood Negative Urine Nitrite Negative Ur Leukocyte Esterase Negative Digoxin 01/20/22 01/20/22 01/20/22 05:00 05:00 05:00 Sodium 142 Potassium 4.1 Chloride 99 Carbon Dioxide 34 H Anion Gap 13 BUN 30 H Creatinine 1.41 H Estim Creat Clear Calc 42.0 Estimated GFR 48 POC Glucose Random Glucose 160 H Calcium 8.5 Phosphorus 4.4 Magnesium 2.4 Total Bilirubin 1.4 H AST 26 ALT 35 Alkaline Phosphatase 111 B-Natriuretic Peptide 827 H Total Protein 6.0 L Albumin 2.9 L Urine Color Urine Appearance Urine pH Ur Specific [employer] Urine Protein Urine Glucose (UA) Urine Ketones Urine Blood Urine Nitrite Ur Leukocyte Esterase Digoxin 0.3 L 01/20/22 07:22 Sodium Potassium Chloride Carbon Dioxide Anion Gap BUN Creatinine Estim Creat Clear Calc Estimated GFR POC Glucose 292 H Random Glucose Calcium Phosphorus Magnesium Total Bilirubin AST ALT Alkaline Phosphatase B-Natriuretic Peptide Total Protein Albumin Urine Color Urine Appearance Urine pH Ur Specific [employer] Urine Protein Urine Glucose (UA) Urine Ketones Urine Blood Urine Nitrite Ur Leukocyte Esterase Digoxin Progress Note: A&P Assessment and plan (1) Heart failure, systolic, with acute decompensation: Status: Acute Assessment and Plan: Patient present with acute decompensated heart failure with significant reduction LV systolic function with yesterday developing lower blood pressure. Currently on dobutamine drip and is doing very well. Will continue to be in drip but start tapering it so that he is off inotropics support by tomorrow. Agree with adding of valsartan for now. Will hold off on carvedilol till he is on dobutamine drip. Continue Lasix at a more gentle diuresis at 2.5 mg an hour. Strict intake and output chart needs to be pursued. Continue to monitor renal function as well as electrolytes and BMP. BNP is significantly improved. He will once improves will require ischemic workup and I think best approach would be cardiac catheterization. Will discuss with him as we go along. Requires ICU level of care as he is on dobutamine drip. However he is clinically doing extremely well. (2) Afib: Status: Acute Assessment and Plan: Atrial fibrillation slight rapid ventricular response related dobutamine drip. Continue taper dobutamine as above. Can use digoxin on a daily basis to rate control. Continue full oral anticoagulation with Xarelto. If he plan to perform cardiac catheterization will hold it appropriately when needed. Will continue to follow with him. Thank you for allowing me to partake in his care Time Spent With Patient Time: Total time spent is greater than 50% in coordination of care (as documented) at patient's floor/unit and/or counseling patient: Progress Note: Quality Stroke Does the patient have a stroke diagnosis?: No Procedures Date of Service Date of Service: 01/20/22
[2022-01-20 11:41] LABS: Glucose, Whole Blood 92 mg/dL (60-115)
--- NOTE | 2022-01-20 12:25 | P.PNCC_ITS ---
Subjective Subjective Date of Service: 01/20/22 Interval History: Mr. Clayton was transferred to ICU yesterday (Jan 20) for intensive management of decompensated congestive heart failure. The patient is 81-year-old man with past medical history of CAD s/p 4 vessel CABG in 2008, HTN, CHF on Lasix 60mg daily, lisinopril, and Coreg, HLD, hx CVA x2, paroxysmal AFib on rivaroxaban, and DM2 on insulin. Has been seeing his PCP for weeping blisters and edema of his LEs. ?Noted increased dyspnea, orthopnea, increased swelling x 2 weeks. No change in his medications.? No chest pain or palpitations. Also noted R eye redness with no h/o trauma with worsening loss of vision in R eye for one week, never saw an eye doctor. Presented ambulatory to the ED on Jan 18.? Was hypoxemic with room air SpO2 of 89%, in rapid AF in the 130s.? Dyspneic with RR 28-31.? CXR showed pulmonary vascular congestion and BNP was 2911.? EKG showed no acute ischemia, poss old IWMI and ALWMI.? He was given Lasix and diltiazem. The ED physician did a fluorescein slit lamp examination and noted hyphema on th e right with pinpoint corneal ulcer; pressures were elevated at 61.? She spoke to the on-call engraver, Dr Burdick, who recommended supportive care with various eye drops, given the delayed presentation; OK to resume rivaroxaban.? No other options for treatment. ?Pt and family aware of risk of loss of vision. Echo showed normal LV wall thickness, with mild LV dilatation.? LV systolic function was severely decreased with severe global hypokinesis, EF 20-25%.? RV cavity size was normal, with low normal RV systolic function.? The atria were mild to moderately dilated.? There was mild and mild AI.? There was mild- moderate MR.? There was mild-moderate TR, with CWD measuring 3.9m/s, the IVC was dilated with no inspiratory collapse.? RVSP estimate was 78mm.? Prior echo 2 years ago showed an EF of 45%. He was seen yesterday morning by Dr. Pugh, who thought he was in decompensated heart failure.? His lisinopril was switched to valsartan and he was put on a Lasix drip.? Later in the afternoon he became hypotensive, so was transferred to the ICU for intensive management and dobutamine. On arrival to the ICU, the patient was moderately tachypneic with mild- moderately increased work of breathing, and marked dyspnea on exertion.? He was given morphine and more Lasix, with good clinical improvement.? He was started on dobutamine.? His blood pressure carl, and we escalated the dobutamine to 10 mcg. He has done very well overnight.? Urine output over the last 24 hours was about 4.5 L. ?This morning, he?s fully awake and alert.? Breathing easier.? On 2 L nasal cannula, the sat is 92-95%.? Respiratory rate is about 20.? Heart rate is 99, in atrial fibrillation (chronic).? Blood pressure is 100-115/50.? He?s afebrile.? Jugular venous distension is 2-3 cm at 40 degrees, almost half of what it was yesterday.? Auscultation of the chest shows rales about longterm up, also considerably less than yesterday.? Heart rate and rhythm are regular, with normal-sounding S1 and S2, and a 1/6 systolic ejection murmur.? Abdomen is benign.? He has about 1+ pretibial and central edema, also about half of what he had yesterday. LABORATORY DATA.? Below.? Notably, BNP down to 827, total bilirubin down to 1.4.? Dig level 0.3. IMPRESSION: 1. Ischemic dilated CMOP. 2. Decompensated congestive heart failure.? Current blood pressure is perfect, if not a little high, for his level of cardiomyopathy.? Discussed with Dr. Pugh this morning. ?Holding Coreg, started valsartan this morning 20 mg bid.? Cut the Lasix drip to 2mg/hr, added Diamox 500 mg bid.? Continue dobutamine fixed dose 10ug another 24hrs.? Eventually switch to Entresto.? Eventually needs ischemic w/u. 3. Hypoxemic respiratory failure.? Secondary to above.? Acute treatment with oxygen, morphine and Lasix. 4. AFib w RVR.? HR back up to the 100 range.? Gave him one dose digoxin 0.25 mg this morning, no effect.? Will give another dose now.? Dr. Pugh prefers to hold the Coreg. ?Continue Xarelto.? Cardioversion is a consideration if we cannot improve his heart failure. 5. HTN.? Eventually continue Coreg and switch to Entresto. 6. DM2.? Continue basal insulin; give correction-dose prandial insulin; added Jardiance. 7. Rt eye hyphema.? Occurred at least one week prior to admission and did not seek ophthalmologic care.? Dr. Montenegro saw him in the ICU last night and again early this afternoon.? I spoke with him at the bedside.? We?ll d/c the erythromycin and timolol,? Continue with atropine, brimonidine, and latanoprost drops.? Outpt f/u with Dr. Gill after he leaves the hospital.? The patient has previously seen Dr. Gill and is able to make the appointment himself. 8. Hyperbilirubinemia.? 2? hepatic congestion.? Improving. 9. Hx CVA x2.? Continue statin, b-malissa, rivaroxaban, antihypertensive. 10. VTE prophylaxis: ?Xarelto. Critical care time:? 60+ min Critical Care Time (minutes): 60 Physical Exam Vital Signs: Vital Signs: Last Vital Signs Temp 99.1 F 01/20/22 12:00 Pulse 108 H 01/20/22 12:00 Resp 16 01/20/22 12:00 BP 115/55 L 01/20/22 12:00 Pulse Ox 90 L 01/20/22 12:00 O2 Del Method 01/20/22 12:00 O2 Flow Rate 2 01/20/22 12:00 BMI result Body Mass Index 25.9 Objective Data Labs CBC & Chem 7: 01/18/22 09:27 01/20/22 05:00 Labs: Laboratory Results - last 24 hr 01/19/22 01/19/22 01/19/22 16:12 17:53 20:56 Sodium Potassium Chloride Carbon Dioxide Anion Gap BUN Creatinine Estim Creat Clear Calc Estimated GFR POC Glucose 163 H 156 H Random Glucose Calcium Phosphorus Magnesium Total Bilirubin AST ALT Alkaline Phosphatase B-Natriuretic Peptide Total Protein Albumin Urine Color Yellow Urine Appearance Clear Urine pH 5.0 Ur Specific [place] 1.010 Urine Protein Negative Urine Glucose (UA) Negative Urine Ketones Negative Urine Blood Negative Urine Nitrite Negative Ur Leukocyte Esterase Negative Digoxin 01/20/22 01/20/22 01/20/22 05:00 05:00 05:00 Sodium 142 Potassium 4.1 Chloride 99 Carbon Dioxide 34 H Anion Gap 13 BUN 30 H Creatinine 1.41 H Estim Creat Clear Calc 42.0 Estimated GFR 48 POC Glucose Random Glucose 160 H Calcium 8.5 Phosphorus 4.4 Magnesium 2.4 Total Bilirubin 1.4 H AST 26 ALT 35 Alkaline Phosphatase 111 B-Natriuretic Peptide 827 H Total Protein 6.0 L Albumin 2.9 L Urine Color Urine Appearance Urine pH Ur Specific [place] Urine Protein Urine Glucose (UA) Urine Ketones Urine Blood Urine Nitrite Ur Leukocyte Esterase Digoxin 0.3 L 01/20/22 01/20/22 07:22 11:39 Sodium Potassium Chloride Carbon Dioxide Anion Gap BUN Creatinine Estim Creat Clear Calc Estimated GFR POC Glucose 292 H 92 Random Glucose Calcium Phosphorus Magnesium Total Bilirubin AST ALT Alkaline Phosphatase B-Natriuretic Peptide Total Protein Albumin Urine Color Urine Appearance Urine pH Ur Specific [place] Urine Protein Urine Glucose (UA) Urine Ketones Urine Blood Urine Nitrite Ur Leukocyte Esterase Digoxin Microbiology Microbiology Results: Microbiology 01/18/22 09:27 Blood - Venous Blood Culture - Preliminary No growth after 48 hours. 01/18/22 11:42 Blood - Venous Blood Culture - Preliminary No growth after 24 hours. Quality Stroke Does the patient have a stroke diagnosis?: No VTE Prior VTE?: No VTE Risk Level:: Medical - moderate - high VTE Device Contraindication: Procedure Contraindicated VTE Drug Contraindication: N/A - Med Ordered Critical Care Time Critical Care Time (minutes): 60
[2022-01-20 15:04] LABS: Glucose Urine UA 250 mg/dL (Negative); Leukocyte Esterase Urine Small (1+) (Negative); Nitrite Urine Negative (Negative); UMIC TRIGGER UA YES; Urine Blood Large (3+) (Negative); Urine Ketones Negative (Negative); Urine Protein 30 (1+) mg/dL (Neg-Trace)
[2022-01-20 15:07] LABS: Appearance Urine Cloudy
[2022-01-20 15:15] LABS: Bacteria Urine None Seen (None Seen); RBC Urine >20 /HPF (0-2); Squamous Epithelial Cell Urine 0-2 /HPF (0-2)
[2022-01-20 16:44] LABS: Glucose, Whole Blood 164 mg/dL (60-115)
[2022-01-20 19:03] LABS: Lactic Acid 1.1 mmol/L (0.5-2.0)
[2022-01-20 19:19] LABS: Anion Gap 17 (12-20); Blood Urea Nitrogen 31 mg/dL (9-16); Calcium 8.6 mg/dL (8.4-10.2); Carbon Dioxide 33 mmol/L (22-29); Chloride 96 mmol/L (96-108); Creatinine Clr Calc Pharmacy 34.2; Estimated Glomerular Filt Rate 43; Glucose Random 168 mg/dL (60-115); Magnesium 2.3 mg/dL (1.6-2.6); Sodium 142 mmol/L (135-145)
[2022-01-20 20:25] LABS: Glucose, Whole Blood 229 mg/dL (60-115)
[2022-01-20] MEDS: Insulin Glargine,Hum.rec.anlog 100 UNIT/ML 10 ML VIAL 14 UNIT SUBCUT (20:35)
[2022-01-20] MEDS: Atropine Sulfate 1 % Ophth Sol 2 ML BOTTLE 1 DROP EYE-RIGHT (20:35)
[2022-01-20] MEDS: Brimonidine Tartrate 0.2% Oph 5 ML BOTTLE 1 DROP EYE-RIGHT (20:42)
[2022-01-20] MEDS: Gabapentin 100 MG CAPSULE PO (20:45)
[2022-01-20] MEDS: Dorzolamide/Timolo 2.23%/0.68% 10 ML DRBTL 1 DROP EYE-RIGHT (20:46)
[2022-01-21] VITALS (17 sets, daily range): BP systolic 85–132; BP diastolic 50–70; PULSE 73–103; RESP 16–25; TEMP 36.3–36.9; O2SAT 90–98
[2022-01-21] MEDS: DOBUTamine HCL/D5W 500 MG/250 ML IV.SOLN 17.84 MG IVCONT
[2022-01-21 05:48] LABS: Alanine Aminotransferase 34 U/L (0-40); Albumin Level 3.4 g/dL (3.5-5.0); Alkaline Phosphatase 120 U/L (39-117); Anion Gap 14 (12-20); Aspartate Amino Transferase 27 U/L (5-37); Bilirubin Total 1.4 mg/dL (0.0-1.0); Blood Urea Nitrogen 31 mg/dL (9-16); Calcium 8.8 mg/dL (8.4-10.2); Carbon Dioxide 33 mmol/L (22-29); Chloride 97 mmol/L (96-108); Creatinine Clr Calc Pharmacy 39.4; Estimated Glomerular Filt Rate 50; Glucose Random 114 mg/dL (60-115); Magnesium 2.4 mg/dL (1.6-2.6); Phosphorus 4.7 mg/dL (2.7-4.5); Potassium 3.9 mmol/L (3.3-5.1); Sodium 140 mmol/L (135-145); Total Protein 6.6 g/dL (6.5-8.0)
[2022-01-21 07:36] LABS: Glucose, Whole Blood 145 mg/dL (60-115)
[2022-01-21] MEDS: acetaZOLAMIDE 250 MG TABLET 500 MG PO ×2 (07:51→21:46)
[2022-01-21] MEDS: Valsartan 40 MG TABLET 20 MG PO ×2 (07:52→21:46)
[2022-01-21] MEDS: Rivaroxaban 15 MG TABLET PO (07:52)
[2022-01-21] MEDS: Cyanocobalamin (Vitamin B-12) 1,000 MCG TABLET 1000 MCG PO (07:53)
[2022-01-21] MEDS: Famotidine 20 MG TABLET PO ×2 (07:53→21:46)
[2022-01-21] MEDS: Ferrous Sulfate 324 MG TABLET.DR PO (07:53)
[2022-01-21] MEDS: Atorvastatin Calcium 80 MG TABLET PO (07:54)
[2022-01-21] MEDS: Sertraline HCL 50 MG TABLET PO (07:54)
[2022-01-21] MEDS: Empagliflozin 10 MG TABLET PO (07:54)
[2022-01-21] MEDS: Albumin Human 25 % 100 ML IV ×2 (07:55→09:31)
[2022-01-21] MEDS: Dorzolamide/Timolo 2.23%/0.68% 10 ML DRBTL 1 DROP EYE-RIGHT ×2 (07:56→21:47)
[2022-01-21] MEDS: Atropine Sulfate 1 % Ophth Sol 2 ML BOTTLE 1 DROP EYE-RIGHT ×2 (07:56→21:48)
[2022-01-21] MEDS: Brimonidine Tartrate 0.2% Oph 5 ML BOTTLE 1 DROP EYE-RIGHT ×2 (07:56→21:47)
[2022-01-21] MEDS: 0.9 % Sodium Chloride Flush 3 ML SYRINGE IVFLUSH ×3 (08:12→21:49)
[2022-01-21] MEDS: Potassium Chloride Packet 20 MEQ PACKET 40 MEQ PO (10:25)
[2022-01-21 11:30] LABS: Glucose, Whole Blood 244 mg/dL (60-115)
[2022-01-21] MEDS: Insulin Lispro 100 UNIT/ML 3 ML VIAL SUBCUT ×3 (11:49→21:47)
[2022-01-21] MEDS: oxyCODONE HCl Immed Release 5 MG TABLET PO (12:23)
--- NOTE | 2022-01-21 12:23 | PM.CCPN ---
Subjective Subjective Date of Service: 01/21/22 Interval History: Mr. Clayton was transferred to ICU Jan 19 for intensive management of decompensated congestive heart failure. The patient is 81-year-old man with past medical history of CAD s/p 4 vessel CABG in 2008, HTN, CHF on Lasix 60mg daily, lisinopril, and Coreg, HLD, hx CVA x2, paroxysmal AFib on rivaroxaban, and DM2 on insulin. Has been seeing his PCP for weeping blisters and edema of his LEs. ?Noted increased dyspnea, orthopnea, increased swelling x 2 weeks. No change in his medications.? No chest pain or palpitations. Also noted R eye redness with no h/o trauma with worsening loss of vision in R eye for one week, never saw an eye doctor. Presented ambulatory to the ED on Jan 18.? Was hypoxemic with room air SpO2 of 89%, in rapid AF in the 130s.? Dyspneic with RR 28-31.? CXR showed pulmonary vascular congestion and BNP was 2911.? EKG showed no acute ischemia, poss old IWMI and ALWMI.? He was given Lasix and diltiazem. The ED physician did a fluorescein slit lamp examination and noted hyphema on the right with pinpoint corneal ulcer; pressures were elevated at 61.? She spoke to the on-call contact centre supervisor, Dr Burdick, who recommended supportive care with various eye drops, given the delayed presentation; OK to resume rivaroxaban.? No other options for treatment.? Pt and family aware of risk of loss of vision. Echo showed normal LV wall thickness, with mild LV dilatation.? LV systolic function was severely decreased with severe global hypokinesis, EF 20-25%.? RV cavity size was normal, with low normal RV systolic function.? The atria were mild to moderately dilated.? There was mild and mild AI.? There was mild-moderate MR.? There was mild-moderate TR, with CWD measuring 3.9m/s, the IVC was dilated with no inspiratory collapse.? RVSP estimate was 78mm.? Prior echo 2 years ago showed an EF of 45%. He was seen 9/[address] Pugh, who thought he was in decompensated heart failure.? His lisinopril was switched to valsartan and he was put on a Lasix drip.? Later in the afternoon he became hypotensive, so was transferred to the ICU for intensive management and dobutamine. On arrival to the ICU, the patient was moderately tachypneic with mild-moderately increased work of breathing, and marked dyspnea on exertion.? He was given morphine and more Lasix, with good clinical improvement.? He was started on dobutamine and a Lasix drip.? His blood pressure carl, and we escalated the dobutamine to 10 mcg. Done very well since then.? Diuresed about 7L.? Yesterday we dropped the dobutamine to 7.5 mcg, and started him on valsartan 20 mg bid.? Still holding the Coreg.? Gave him two doses 0.5 mg digoxin yesterday for heart rate control. This morning, he?s fully awake and alert.? Breathing easy.? On 2 L nasal cannula, the sat is up to 97-98%.? Heart rate is 91, atrial fibrillation (chronic).? Blood pressure is 125/59.? He?s afebrile.? Jugular venous distension is 2 cm at 40 degrees, less than it was yesterday.? Chest is CTA, no rales.? Heart rate and rhythm are irregular, with normal-sounding S1 and S2, and a 1/6 systolic ejection murmur.? Abdomen is benign.? He has < 1+ pretibial and central edema, signif less than what he had yesterday. LABORATORY DATA.? Below.? Notably, creat down to 1.3, BUN up to 31. IMPRESSION: 1. Ischemic dilated CMOP. 2. Decompensated congestive heart failure.? D/C the dobutamine now, d/c the Lasix drip, change to 20 mg IV bid.? Still holding Coreg, advance valsartan to 40 mg bid when BP tolerates it.? Eventually switch to Entresto.? Eventually needs ischemic w/u. 3. Hypoxemic respiratory failure.? Secondary to above.? Acute treatment with oxygen, morphine and Lasix. 4. AFib w RVR.? HR back down to the 90?s.? Dr. Pugh prefers to hold the Coreg for now.? Continue Xarelto.? Cardioversion is a consideration if we cannot improve his heart failure. 5. HTN.? Eventually continue Coreg and switch to Entresto. 6. DM2.? Continue basal insulin; give correction-dose prandial insulin; added Jardiance. 7. Rt eye hyphema.? Occurred at least one week prior to admission and did not seek ophthalmologic care.? Dr. Montenegro saw him in the ICU yesterday and the day before.? I spoke with him at the bedside.? Continuing with atropine, brimonidine, and latanoprost drops.? Outpt f/u with Dr. Gill after he leaves the hospital.? The patient has previously seen Dr. Gill and is able to make the appointment himself. 8. Metabolic alkalosis.? 2? Lasix.? Stop the Diamox now, may need to restart it later if his bicarb rises. 9. Hyperbilirubinemia.? 2? hepatic congestion.? Improving. 10. Chronic pain.? Wrote him for oxycodone 5mg q4hr prn, and gabapentin 100 mg qhs.? He slept well with the gabapentin and it?s not causing him any dizziness.? We?ll continue on that. 11. Hx CVA x2.? Continue statin, b-malissa, rivaroxaban, antihypertensive. 12. VTE prophylaxis: ?Xarelto. St[place] [facility] [place] I will sign out to the hospitalists. Critical Care Time (minutes): 0 Physical Exam Vital Signs: Vital Signs: Last Vital Signs Temp 98.1 F 01/21/22 11:00 Pulse 88 01/21/22 12:00 Resp 20 01/21/22 12:00 BP 94/50 L 01/21/22 12:00 Pulse Ox 95 01/21/22 12:00 O2 Del Method 01/21/22 12:00 O2 Flow Rate 2 01/21/22 12:00 BMI result Body Mass Index 25.9 Objective Data Labs CBC & Chem 7: 01/18/22 09:27 01/21/22 05:14 Labs: Laboratory Results - last 24 hr 01/20/22 01/20/22 01/20/22 14:08 16:40 18:46 Sodium 142 Potassium 4.0 Chloride 96 Carbon Dioxide 33 H Anion Gap 17 BUN 31 H Creatinine 1.58 H Estim Creat Clear Calc 34.2 Estimated GFR 43 POC Glucose 164 H Random Glucose 168 H Lactic Acid Calcium 8.6 Phosphorus Magnesium 2.3 Total Bilirubin AST ALT Alkaline Phosphatase Total Protein Albumin Urine Color Other-[place] Urine Appearance Cloudy Urine pH 8.0 Ur Specific [place] 1.010 Urine Protein 30 (1+) H Urine Glucose (UA) 250 H Urine Ketones Negative Urine Blood Large (3+) H Urine Nitrite Negative Ur Leukocyte Esterase Small (1+) H Urine RBC >20 H Urine WBC 6-10 H Ur Squamous Epith Cells 0-2 Urine Bacteria None Seen Hyaline Casts 6-10 01/20/22 01/20/22 01/21/22 18:46 20:20 05:14 Sodium 140 Potassium 3.9 Chloride 97 Carbon Dioxide 33 H Anion Gap 14 BUN 31 H Creatinine 1.37 Estim Creat Clear Calc 39.4 Estimated GFR 50 POC Glucose 229 H Random Glucose 114 Lactic Acid 1.1 Calcium 8.8 Phosphorus 4.7 H Magnesium 2.4 Total Bilirubin 1.4 H AST 27 ALT 34 Alkaline Phosphatase 120 H Total Protein 6.6 Albumin 3.4 L Urine Color Urine Appearance Urine pH Ur Specific [place] Urine Protein Urine Glucose (UA) Urine Ketones Urine Blood Urine Nitrite Ur Leukocyte Esterase Urine RBC Urine WBC Ur Squamous Epith Cells Urine Bacteria Hyaline Casts 01/21/22 01/21/22 07:16 11:23 Sodium Potassium Chloride Carbon Dioxide Anion Gap BUN Creatinine Estim Creat Clear Calc Estimated GFR POC Glucose 145 H 244 H Random Glucose Lactic Acid Calcium Phosphorus Magnesium Total Bilirubin AST ALT Alkaline Phosphatase Total Protein Albumin Urine Color Urine Appearance Urine pH Ur Specific [place] Urine Protein Urine Glucose (UA) Urine Ketones Urine Blood Urine Nitrite Ur Leukocyte Esterase Urine RBC Urine WBC Ur Squamous Epith Cells Urine Bacteria Hyaline Casts Microbiology Microbiology Results: Microbiology 01/18/22 11:42 Blood - Venous Blood Culture - Preliminary No growth after 48 hours. 01/18/22 09:27 Blood - Venous Blood Culture - Preliminary No growth after 48 hours. Quality Stroke Does the patient have a stroke diagnosis?: No VTE Prior VTE?: No VTE Risk Level:: Medical - moderate - high VTE Device Contraindication: Procedure Contraindicated VTE Drug Contraindication: N/A - Med Ordered
--- NOTE | 2022-01-21 12:24 | HO.WOUNDCONS ---
History of Present Illness Data of Consult Service Date: 01/21/22 Requesting physician: Richard Eckert Primary Care Provider: Heladio Aparicio MD [facility] Reason for consult: leg ulcers 81-year-old male in the ICU for heart failure, fluid overload, responding nicely to diuretics and medicinal management of CHF. The patient states that he is feeling much better. He is eating lunch, taking protein. His serum total protein and albumin look good. He is no longer short of breath. We are asked to make recommendations about leg wounds which were present prior to the hospitalization, described as blisters, being managed by his primary care physician with Silvadene according to patient. Review of Systems Review of Systems: Good appetite, shortness of breath is much improved. No fever. Complains of pain of the areas of ulceration on the legs. Yes all other systems are reviewed and are negative [facility] Medical History (Updated 01/20/22 @ 11:42 by Cristino Pugh MD) Afib CAD (coronary artery disease) CHF (congestive heart failure) COPD (chronic obstructive pulmonary disease) Diabetes History of amputation of great toe History of CVA (cerebrovascular accident) HTN (hypertension) Family History Other Diabetes Surgical History Hx of CABG Social History Household Members: Spouse Housing: House Do you presently have visiting nurse or other home services: No Patient Tobacco Use Status: Former Tobacco user Meds Allergies Allergy/AdvReac Type Severity Reaction Status Date / Time No Known Allergies Allergy Unverified 01/23/20 17:50 Active Medications: Current Medications Acetaminophen (Acetaminophen 325 Mg Tablet) 650 mg PO Q6H PRN PRN Reason: Pain, Mild (Pain Scale 1-3) Last Admin: 01/18/22 21:15 Dose: 650 mg Acetazolamide (Acetazolamide 250 Mg Tablet) 500 mg PO BID [facility] Last Admin: 01/21/22 07:51 Dose: 500 mg Atorvastatin Calcium (Atorvastatin Calcium 80 Mg Tablet) 80 mg PO DAILY [facility] Last Admin: 01/21/22 07:54 Dose: 80 mg Atropine Sulfate (Atropine Sulfate 1 % Oph Patricia 2 Ml Bottle) 1 drop EYE-RIGHT BID [facility] Last Admin: 01/21/22 07:56 Dose: 1 drop Brimonidine Tartrate (Brimonidine Tartrate 0.2% Oph 5 Ml Bottle) 1 drop EYE-RIGHT BID [facility] Last Admin: 01/21/22 07:56 Dose: 1 drop Cyanocobalamin (Cyanocobalamin (Vitamin B-12) 1,000 Mcg Tablet) 1,000 mcg PO DAILY [facility] Last Admin: 01/21/22 07:53 Dose: 1,000 mcg Dextrose (Dextrose 50 % 25 Gm/50 Ml Syringe) 25 gm IVPUSH Q15M PRN; Protocol PRN Reason: per Hypoglycemia Standing Ord. Docusate Sodium (Docusate Sodium 100 Mg Capsule) 100 mg PO BID PRN PRN Reason: constipation Dorzolamide/Timolol (Dorzolamide/Timolo 2.23%/0.68% 10 Ml Drbtl) 1 drop EYE-RIGHT BID [facility] Last Admin: 01/21/22 07:56 Dose: 1 drop Empagliflozin (Empagliflozin 10 Mg Tablet) 10 mg PO DAILY [facility] Last Admin: 01/21/22 07:54 Dose: 10 mg Famotidine (Famotidine 20 Mg Tablet) 20 mg PO BID [facility] Last Admin: 01/21/22 07:53 Dose: 20 mg Ferrous Sulfate (Ferrous Sulfate 324 Mg Tablet.Dr) 324 mg PO DAILY [facility] Last Admin: 01/21/22 07:53 Dose: 324 mg Gabapentin (Gabapentin 100 Mg Capsule) 100 mg PO BEDTIME [facility] Last Admin: 01/20/22 20:45 Dose: 100 mg Glucose (Glucose Gel 15 Gm Gel..Gram.) 15 gm PO Q15M PRN; Protocol PRN Reason: per Hypoglycemia Standing Ord. Furosemide 200 mg/ Sodium (Chloride) 100 mls @ 1 mls/hr IVCONT .Q24H [facility] Last Admin: 01/21/22 11:31 Dose: Not Given Dobutamine HCl/Dextrose (Dobutrex) 500 mg in 250 mls @ 0 mls/hr IVCONT .Q0M [facility]; Protocol Last Titration: 01/21/22 09:57 Dose: 0 mcg/kg/min, 0 mls/hr Insulin Glargine (Insulin Glargine,Hum.Rec.Anlog 100 Unit/Ml 10 Ml Vial) 14 unit SUBCUT BEDTIME [facility] Last Admin: 01/20/22 20:35 Dose: 14 unit Insulin Human Lispro (Insulin Lispro 100 Unit/Ml 3 Ml Vial) 0 unit SUBCUT QIDACHS [facility]; Protocol Last Admin: 01/21/22 11:49 Dose: 4 unit Latanoprost (Latanoprost 0.005 % Ophth Patricia 2.5 Ml Drops) 1 drop EYE-RIGHT DAILY@2200 [facility] Last Admin: 01/20/22 22:31 Dose: 1 drop Morphine Sulfate (Morphine Sulfate 2 Mg/Ml Cartridge) 2 mg IVPUSH Q1H PRN; Protocol PRN Reason: WOB Last Admin: 01/19/22 15:25 Dose: 2 mg Oxycodone HCl (Oxycodone Hcl Immed Release 5 Mg Tablet) 5 mg PO Q4H PRN PRN Reason: Pain, Mild (Pain Scale 1-3) Last Admin: 01/20/22 10:54 Dose: 5 mg Pharmacy Consult (Consult Rx Perform Med Rec) 1 each MISCELLANE ONCE PRN PRN Reason: Consult order Rivaroxaban (Rivaroxaban 15 Mg Tablet) 15 mg PO DAILY [facility] Last Admin: 01/21/22 07:52 Dose: 15 mg Senna (Sennosides 8.6 Mg Tablet) 17.2 mg PO BEDTIME PRN PRN Reason: Constipation Sertraline HCl (Sertraline Hcl 50 Mg Tablet) 50 mg PO DAILY [facility] Last Admin: 01/21/22 07:54 Dose: 50 mg Sodium Chloride (0.9 % Sodium Chloride Flush 3 Ml Syringe) 3 ml IVFLUSH QSUC [facility] Last Admin: 01/21/22 08:12 Dose: 3 ml Valsartan (Valsartan 40 Mg Tablet) 20 mg PO BID [facility]; Protocol Last Admin: 01/21/22 07:52 Dose: 20 mg Home Medications Medication Instructions Recorded Confirmed Last Taken Type atorvastatin 80 mg tablet 1 tab PO DAILY 01/18/22 01/18/22 01/17/22 History carvedilol 12.5 mg tablet 1 tab PO BID 01/18/22 01/18/22 01/17/22 History cyanocobalamin (vitamin B-12) 1,000 mcg PO DAILY 01/18/22 01/18/22 01/17/22 History 1,000 mcg tablet famotidine 20 mg tablet 1 tab PO BID 01/18/22 01/18/22 01/17/22 History ferrous sulfate 324 mg (65 mg 324 mg PO DAILY 01/18/22 01/18/22 01/17/22 History iron) tablet,delayed release furosemide 20 mg tablet 2 tab PO DAILY 01/18/22 01/18/22 01/17/22 History glipizide 10 mg tablet, extended 1 tab PO BID 01/18/22 01/18/22 01/17/22 History release 24 hr insulin detemir U-100 100 unit/mL 20 unit subcut BEDTIME 01/18/22 01/18/22 01/17/22 History (3 mL) subcutaneous pen (Levemir FlexTouch U-100 Insulin) lisinopril 10 mg tablet 1 tab PO DAILY 01/18/22 01/18/22 01/17/22 History metformin 1,000 mg tablet 1 tab PO DAILY 01/18/22 01/18/22 01/17/22 History rivaroxaban 20 mg tablet (Xarelto) 1 tab PO DAILY 01/18/22 01/18/22 01/17/22 History sertraline 50 mg tablet 1 tab PO DAILY 01/18/22 01/18/22 01/17/22 History aspirin 325 mg tablet 975 mg PO BID PRN Pain 01/20/22 01/20/22 3 Days Ago History ~01/17/22 naproxen sodium 220 mg tablet 440 mg PO DAILY 01/20/22 01/20/22 3 Days Ago History ~01/17/22 Physical Exam Vital Signs and Narrative: Vital Signs: Last Vital Signs Temp 98.1 F 01/21/22 11:00 Pulse 88 01/21/22 12:00 Resp 20 01/21/22 12:00 BP 94/50 L 01/21/22 12:00 Pulse Ox 95 01/21/22 12:00 O2 Del Method 01/21/22 12:00 O2 Flow Rate 2 01/21/22 12:00 BMI result Body Mass Index 25.9 There is no longer 1 to 2+ pitting in the legs. Scant edema with palpable dorsalis pedis pulses. No redness, streaking or warmth to suggest cellulitis. Scattered areas of adherent slough might be consistent with old blisters. With irrigation and gauze, partial thickness ulceration is identified without associated infection. These areas are very tender. Right medial lower leg erythema could be from remote CABG vein harvestation. No open area proximally. The open areas are primarily from the mid hayward distally, small and scattered, not measuring more than 1-2 cm in each isolated area. Periwound discoloration might be consistent with short-term localized ischemia when he became fluid overloaded. Results Labs CBC and Chem 7: 01/18/22 09:27 01/21/22 05:14 Labs: Laboratory Results - last 24 hr 01/20/22 01/20/22 01/20/22 14:08 16:40 18:46 Anion Gap 17 Estim Creat Clear Calc 34.2 Estimated GFR 43 POC Glucose 164 H Random Glucose 168 H Lactic Acid Calcium 8.6 Phosphorus Magnesium 2.3 Total Bilirubin AST ALT Alkaline Phosphatase Total Protein Albumin Urine Color Other-[place]ory Urine Appearance Cloudy Urine pH 8.0 Ur Specific [place] 1.010 Urine Protein 30 (1+) H Urine Glucose (UA) 250 H Urine Ketones Negative Urine Blood Large (3+) H Urine Nitrite Negative Ur Leukocyte Esterase Small (1+) H Urine RBC >20 H Urine WBC 6-10 H Ur Squamous Epith Cells 0-2 Urine Bacteria None Seen Hyaline Casts 6-10 01/20/22 01/20/22 01/21/22 18:46 20:20 05:14 Anion Gap 14 Estim Creat Clear Calc 39.4 Estimated GFR 50 POC Glucose 229 H Random Glucose 114 Lactic Acid 1.1 Calcium 8.8 Phosphorus 4.7 H Magnesium 2.4 Total Bilirubin 1.4 H AST 27 ALT 34 Alkaline Phosphatase 120 H Total Protein 6.6 Albumin 3.4 L Urine Color Urine Appearance Urine pH Ur Specific [place] Urine Protein Urine Glucose (UA) Urine Ketones Urine Blood Urine Nitrite Ur Leukocyte Esterase Urine RBC Urine WBC Ur Squamous Epith Cells Urine Bacteria Hyaline Casts 01/21/22 01/21/22 07:16 11:23 Anion Gap Estim Creat Clear Calc Estimated GFR POC Glucose 145 H 244 H Random Glucose Lactic Acid Calcium Phosphorus Magnesium Total Bilirubin AST ALT Alkaline Phosphatase Total Protein Albumin Urine Color Urine Appearance Urine pH Ur Specific [place] Urine Protein Urine Glucose (UA) Urine Ketones Urine Blood Urine Nitrite Ur Leukocyte Esterase Urine RBC Urine WBC Ur Squamous Epith Cells Urine Bacteria Hyaline Casts Assessment and Plan (1) CHF (congestive heart failure): Qualifiers: Heart failure chronicity: acute on chronic Heart failure type: unspecified Qualified Code(s): I50.9 - Heart failure, unspecified Status: Acute Plan Bilateral lower extremity ulceration associated with recent CHF exacerbation and fluid overload without convincing signs of long-standing venous insufficiency. No signs of infection in the lower extremities. Recommend topical silver alginate cut to fit open areas as the primary dressing. Roller gauze and Chang wraps gently applied are appropriate as secondary dressing. Since pitting edema has resolved, no significant fluid shifting is anticipated, so long as the Chang wraps are placed gently. Expect evolution of the discolored areas of the periwound. Betadine paint to the toe areas and all stable eschar can help, particularly in light of diabetes history. Protein calorie malnutrition is not suspected in this instance, but continued support of the pre-albumin would be conducive to healing along with ongoing fluid management. Thank you for the courtesy of this consultation.
[2022-01-21] MEDS: Morphine Sulfate 2 MG/ML CARTRIDGE IVPUSH (12:57)
--- NOTE | 2022-01-21 15:43 | P.PNCA_ITS ---
Subjective Subjective Date of Service: 01/21/22 Principal diagnosis: Decompensated congestive heart failure Interval history: Patient feeling a lot better. He is currently of dobutamine and Lasix drip. Breathing better. Complains of pain in his right lower extremity which is being managed by the ICU team at this point time. Blood pressure is stable. Heart ra te has remained controlled. Review of Systems Constitutional: Reports no additional constitutional complaints Cardiovascular: Reports no additional cardiovascular complaints Respiratory: Reports no additional respiratory complaints Gastrointestinal: Reports no additional gastrointestinal complaints Reports system reviewed and no additional complaints, except as documented Endocrine: Reports no additional endocrine complaints Physical Exam Vital Signs: Last Vital Signs Temp 98.0 F 01/21/22 15:34 Pulse 92 01/21/22 15:34 Resp 20 01/21/22 15:34 BP 105/58 L 01/21/22 15:34 Pulse Ox 90 L 01/21/22 15:34 O2 Del Method 01/21/22 15:34 O2 Flow Rate 2 01/21/22 15:34 BMI result Body Mass Index 25.9 Const General: cooperative, comfortable, no acute distress, alert and awake Nutritional Appearance: overweight Orientation/consciousness: patient oriented x3 Neck Neck: Yes trachea midline, Yes supple and Yes no JVD Resp Effort & Inspection: normal respiratory effort Auscultation: no rales and diminished lung sounds Cardio Jugular venous distension: no JVD Rhythm: abnormal rhythm irregularly irregular Heart sounds: S1 normal heart sound present, S2 normal heart sound present, no click, no gallops and Murmur heart sound present GI Auscultation: normal bowel sounds Skin General skin exam: no rashes or lesions noted and ecchymosis Neuro General: patient oriented x3 and no focal motor deficits Extrem General: No clubbing, No cyanosis and Yes edema Objective Labs and Meds Result diagrams: 01/18/22 09:27 01/21/22 05:14 Lab results: Laboratory Results - last 24 hr 01/20/22 01/20/22 01/20/22 16:40 18:46 18:46 Sodium 142 Potassium 4.0 Chloride 96 Carbon Dioxide 33 H Anion Gap 17 BUN 31 H Creatinine 1.58 H Estim Creat Clear Calc 34.2 Estimated GFR 43 POC Glucose 164 H Random Glucose 168 H Lactic Acid 1.1 Calcium 8.6 Phosphorus Magnesium 2.3 Total Bilirubin AST ALT Alkaline Phosphatase Total Protein Albumin 01/20/22 01/21/22 01/21/22 20:20 05:14 07:16 Sodium 140 Potassium 3.9 Chloride 97 Carbon Dioxide 33 H Anion Gap 14 BUN 31 H Creatinine 1.37 Estim Creat Clear Calc 39.4 Estimated GFR 50 POC Glucose 229 H 145 H Random Glucose 114 Lactic Acid Calcium 8.8 Phosphorus 4.7 H Magnesium 2.4 Total Bilirubin 1.4 H AST 27 ALT 34 Alkaline Phosphatase 120 H Total Protein 6.6 Albumin 3.4 L 01/21/22 11:23 Sodium Potassium Chloride Carbon Dioxide Anion Gap BUN Creatinine Estim Creat Clear Calc Estimated GFR POC Glucose 244 H Random Glucose Lactic Acid Calcium Phosphorus Magnesium Total Bilirubin AST ALT Alkaline Phosphatase Total Protein Albumin Progress Note: A&P Assessment and plan (1) Heart failure, systolic, with acute decompensation: Status: Acute Assessment and Plan: Acute decompensated heart failure doing significantly better at this point time. Continue IV diuresis with Lasix. Strict intake and output chart needs to be pursued. Started on valsartan yesterday tolerating well with improving renal function. Add carvedilol 3.125 mg b.i.d. to his regimen given that he is currently of dobutamine therapy and his volume status is much improved. Will continue to monitor him clinically. Continue to trend renal function as well as electrolytes and replace as needed. Will require ischemic workup. May also require pursue ends of rhythm control but would probably do that after his cardiac catheterization. Probably transfer him over the weekend for cardiac catheterization (2) Afib: Status: Acute Assessment and Plan: Atrial fibrillation which is currently rate controlled. Continue rate control strategy. At p.r.n. digoxin. But will add carvedilol as above. Continue full oral anticoagulation with Eliquis. Will probably switch him to IV heparin s tarting Monday so we can probably transfer Monday for cardiac catheterization to stay. Will continue to follow with you Time Spent With Patient Time: Total time spent is greater than 50% in coordination of care (as documented) at patient's floor/unit and/or counseling patient: Progress Note: Quality Stroke Does the patient have a stroke diagnosis?: No Procedures Date of Service Date of Service: 01/21/22
[2022-01-21 15:58] LABS: Glucose, Whole Blood 156 mg/dL (60-115)
--- NOTE | 2022-01-21 16:41 | PM.EVENT ---
Event Note Date of Service: 01/21/22 Event Note: Downgraded from ICU this afternoon Got call around 4:30 that patient had fallen. This provider up to see patient at bedside. Patient states that he attempted to stand up, made it to the side of the bed, but did not stand up completely and fell over out of bed and may have ?hit his head a little?. He denies any hip pain, knee pain, shoulder pain. He is able to move all 4 extremities spontaneously and without pain. Right eye hyphema noted - documented previously in ICU, present on admission - seen by Ophthalmology, and currently getting treatment - see ICU note for details No obvious sign of acute injury. no specific complaints at this time -will obtain stat brain CT and hip xray -camera in room -will need PT eval prior to d/c
[2022-01-21] MEDS: Furosemide 20 MG/2 ML VIAL IVPUSH (17:54)
--- NOTE | 2022-01-21 18:11 | PC.NURSE ---
Report taken from BRIDGE CONTRACTOR. Pt transferred to unit w/ visitor at bedside. Pt was bathed upon arrival to [facility] and educated special education paraprofessional schilling use. Around 1700 pt experienced an unwitnessed fall. Staff arrived to bedside, this RN assessed pt, PCT obtained vitals, DECISION SCIENCE ANALYST and clin sup was informed. Pt stated I know I made a mistake, I was trying to move around and when I tried to stand I fell. Pt stated I hit my a head a little bit on the floor, and had no c/o pain, headache, etc. Pt's assessment remained the same w/ no new signs of bruising or hematoma's. DECISION SCIENCE ANALYST assessed pt at bedside. Pt was brought for CT and XR stat, DECISION SCIENCE ANALYST informed of results. Bed alarm in place, camera in place. Pt stated he has a history of falls at home and has hit his head badly at home in the past.
[2022-01-21 19:54] LABS: Glucose, Whole Blood 172 mg/dL (60-115)
[2022-01-21] MEDS: Gabapentin 100 MG CAPSULE PO (21:46)
[2022-01-21] MEDS: Insulin Glargine,Hum.rec.anlog 100 UNIT/ML 10 ML VIAL 14 UNIT SUBCUT (21:47)
[2022-01-22] VITALS (7 sets, daily range): BP systolic 113–132; BP diastolic 64–75; PULSE 87–97; RESP 16–18; TEMP 36.6–37; O2SAT 91–98
[2022-01-22 06:55] LABS: MANUAL DIFF FLAG NO
[2022-01-22 07:04] LABS: Basophils Percent Auto 0.3 % (0-2); Eosinophils Absolute Auto 0.6 X10*3/uL (0.0-0.4); Eosinophils Percent Auto 6.8 % (0-4); Hematocrit 33.9 % (42.0-52.0); Imm Gran Abs Auto 0.03 X10*3/uL (0.00-0.03); Imm Gran Pct Auto 0.3 % (0.0-0.4); Lymphocytes Absolute Auto 1.1 X10*3/uL (1.2-4.9); Lymphocytes Percent Auto 11.8 % (20-40); Mean Corpuscular HGB Conc 29.5 g/dl (31.0-36.0); Mean Corpuscular Hemoglobin 30.5 pg (27.0-33.0); Mean Corpuscular Volume 103.4 fL (80.0-98.0); Mean Platelet Volume 9.1 fL (9.4-12.4); Monocytes Absolute Auto 0.9 X10*3/uL (0.1-1.2); Monocytes Percent Auto 9.9 % (2-11); Neutrophils Absolute Auto 6.4 x10*3/uL (2.0-8.3); Neutrophils Percent Auto 70.9 % (45-73); Platelet Count 157 X10*3/uL (160-400); Red Blood Count 3.28 X10*6/uL (4.60-5.80); Red Cell Distribution Width 19.4 % (11.0-16.0); White Blood Count 9.1 X10*3/uL (4.8-10.8)
[2022-01-22 07:24] LABS: Anion Gap 14 (12-20); Blood Urea Nitrogen 33 mg/dL (9-16); Calcium 9.1 mg/dL (8.4-10.2); Carbon Dioxide 33 mmol/L (22-29); Chloride 98 mmol/L (96-108); Creatinine Clr Calc Pharmacy 38.3; Estimated Glomerular Filt Rate 48; Glucose Random 163 mg/dL (60-115); Magnesium 2.5 mg/dL (1.6-2.6); Phosphorus 4.6 mg/dL (2.7-4.5); Potassium 4.3 mmol/L (3.3-5.1); Sodium 141 mmol/L (135-145)
[2022-01-22 07:38] LABS: B Type Natriuretic Peptide 2170 pg/mL (<100)
[2022-01-22 07:44] LABS: Glucose, Whole Blood 124 mg/dL (60-115)
[2022-01-22] MEDS: acetaZOLAMIDE 250 MG TABLET 500 MG PO ×2 (10:41→21:26)
[2022-01-22] MEDS: Atorvastatin Calcium 80 MG TABLET PO (10:41)
[2022-01-22] MEDS: Ferrous Sulfate 324 MG TABLET.DR PO (10:41)
[2022-01-22] MEDS: Empagliflozin 10 MG TABLET PO (10:41)
[2022-01-22] MEDS: Famotidine 20 MG TABLET PO ×2 (10:41→21:27)
[2022-01-22] MEDS: Sertraline HCL 50 MG TABLET PO (10:42)
[2022-01-22] MEDS: Cyanocobalamin (Vitamin B-12) 1,000 MCG TABLET 1000 MCG PO (10:42)
[2022-01-22] MEDS: Rivaroxaban 15 MG TABLET PO (10:42)
[2022-01-22] MEDS: Furosemide 20 MG/2 ML VIAL IVPUSH ×2 (10:42→16:55)
[2022-01-22] MEDS: Valsartan 40 MG TABLET 20 MG PO ×2 (10:42→21:26)
--- NOTE | 2022-01-22 10:42 | P.PNCA_ITS ---
Subjective Subjective Date of Service: 01/22/22 Principal diagnosis: Decompensated congestive heart failure Interval history: Patient is feeling better. His right leg pain reportedly he has improved as per him. Denies worsening shortness of breath chest discomfort. No palpitations. Heart rate is well controlled. Blood pressure much improved. His creatinine is increased slightly to 1.4 Review of Systems Review of Systems Yes all other systems are reviewed and are negative Physical Exam Vital Signs: Last Vital Signs Temp 98.1 F 01/22/22 07:15 Pulse 87 01/22/22 07:15 Resp 18 01/22/22 07:15 BP 131/65 01/22/22 07:15 Pulse Ox 98 01/22/22 07:15 O2 Del Method 01/22/22 07:15 O2 Flow Rate 2 01/22/22 07:15 BMI result Body Mass Index 25.9 Const General: cooperative, comfortable, no acute distress, alert and awake Nutritional Appearance: overweight Orientation/consciousness: patient oriented x3 Neck Neck: Yes trachea midline, Yes supple and Yes no JVD Resp Effort & Inspection: normal respiratory effort Auscultation: no rales and diminished lung sounds Cardio Jugular venous distension: no JVD Rhythm: abnormal rhythm irregularly irregular Heart sounds: S1 normal heart sound present, S2 normal heart sound present, no click, no gallops and Murmur heart sound present GI Auscultation: normal bowel sounds Skin General skin exam: no rashes or lesions noted and ecchymosis Neuro General: patient oriented x3 and no focal motor deficits Extrem General: No clubbing, No cyanosis and Yes edema Objective Labs and Meds Result diagrams: 01/22/22 06:16 01/22/22 06:16 Lab results: Laboratory Results - last 24 hr 01/21/22 01/21/22 01/21/22 11:23 15:55 19:48 WBC RBC Hgb Hct MCV MCH MCHC RDW Plt Count MPV Immature Gran % (Auto) Neut % (Auto) Lymph % (Auto) [place] % (Auto) Eos % (Auto) Baso % (Auto) Lymph # (Auto) [place] # (Auto) Eos # (Auto) Baso # (Auto) Abs Immat Gran (auto) Absolute Neuts (auto) Absolute Nucleated RBC Nucleated RBC % (auto) Sodium Potassium Chloride Carbon Dioxide Anion Gap BUN Creatinine Estim Creat Clear Calc Estimated GFR POC Glucose 244 H 156 H 172 H Random Glucose Calcium Phosphorus Magnesium B-Natriuretic Peptide 01/22/22 01/22/22 01/22/22 06:16 06:16 06:16 WBC 9.1 RBC 3.28 L Hgb 10.0 L Hct 33.9 L MCV 103.4 H D MCH 30.5 MCHC 29.5 L RDW 19.4 H Plt Count 157 L MPV 9.1 L Immature Gran % (Auto) 0.3 Neut % (Auto) 70.9 Lymph % (Auto) 11.8 L [place] % (Auto) 9.9 Eos % (Auto) 6.8 H Baso % (Auto) 0.3 Lymph # (Auto) 1.1 L [place] # (Auto) 0.9 Eos # (Auto) 0.6 H Baso # (Auto) 0.0 Abs Immat Gran (auto) 0.03 Absolute Neuts (auto) 6.4 Absolute Nucleated RBC 0.000 Nucleated RBC % (auto) 0.0 Sodium 141 Potassium 4.3 Chloride 98 Carbon Dioxide 33 H Anion Gap 14 BUN 33 H Creatinine 1.41 H Estim Creat Clear Calc 38.3 Estimated GFR 48 POC Glucose Random Glucose 163 H D Calcium 9.1 Phosphorus 4.6 H Magnesium 2.5 B-Natriuretic Peptide 2170 H 01/22/22 07:17 WBC RBC Hgb Hct MCV MCH MCHC RDW Plt Count MPV Immature Gran % (Auto) Neut % (Auto) Lymph % (Auto) [place] % (Auto) Eos % (Auto) Baso % (Auto) Lymph # (Auto) [place] # (Auto) Eos # (Auto) Baso # (Auto) Abs Immat Gran (auto) Absolute Neuts (auto) Absolute Nucleated RBC Nucleated RBC % (auto) Sodium Potassium Chloride Carbon Dioxide Anion Gap BUN Creatinine Estim Creat Clear Calc Estimated GFR POC Glucose 124 H Random Glucose Calcium Phosphorus Magnesium B-Natriuretic Peptide Imaging Radiologist's impression: Impressions Head CT 01/21/22 17:02 IMPRESSION: No acute intracranial abnormality. Small left parietal scalp contusion. No evidence of hemorrhage. 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 Hip X-Ray 01/21/22 17:06 IMPRESSION: No acute finding Progress Note: A&P Assessment and plan (1) Heart failure, systolic, with acute decompensation: Status: Acute Assessment and Plan: Heart failure with acute exacerbation with severe LV systolic dysfunction which is significant reduction in his LVEF compared to before. Continue valsartan therapy. For now will maximize his Coreg to 6.25 mg b.i.d. for better rate control as well as for neurohormonal modulation. If he tolerates this and blood pressure is okay will tomorrow increases valsartan therapy based on his renal function. Hold off on Aldactone and Jardiance for now. Reduce Lasix to 40 mg daily. Given sudden reduction in his LV ejection fraction will require further evaluation and I recommend him to be underwent cardiac catheterization to evaluate coronary as well as graft anatomy. This was discussed with him is agreeable. Hopefully will have no source of infection. His white cell count is within normal limits at this point in time. Continue monitor renal function and BNP tomorrow. Strict intake and output chart needs to be pursued. (2) Afib: Status: Acute Assessment and Plan: Atrial fibrillation with better rate control at this point time. Maximize carvedilol therapy as above. Continue Eliquis today. Starting tomorrow switch him to IV heparin therapy with plan for cardiac catheterization on Monday. (3) CAD (coronary artery disease): Status: Acute Assessment and Plan: CAD with remote coronary artery bypass grafting with recent worsening LV ejection fraction suggestive of possible progressive coronary artery disease and/or graft closure. This needs to be evaluated. Will recommend cardiac catheterization once he is more stabilized from heart failure perspective. Anticipate transfer to [facility] on Monday for cardiac catheterization on Monday. Continue current medical therapy. Currently on full oral anticoagulation which will be switched to heparin starting tomorrow. Continue statin therapy. Will continue to follow with you. Thank you for allowing me to partake in his care Time Spent With Patient Time: Total time spent is greater than 50% in coordination of care (as documented) at patient's floor/unit and/or counseling patient: Progress Note: Quality Stroke Does the patient have a stroke diagnosis?: No Procedures Date of Service Date of Service: 01/22/22
[2022-01-22] MEDS: Atropine Sulfate 1 % Ophth Sol 2 ML BOTTLE 1 DROP EYE-RIGHT ×2 (10:43→21:28)
[2022-01-22] MEDS: 0.9 % Sodium Chloride Flush 3 ML SYRINGE IVFLUSH ×3 (10:43→21:34)
[2022-01-22] MEDS: Brimonidine Tartrate 0.2% Oph 5 ML BOTTLE 1 DROP EYE-RIGHT ×2 (10:43→21:29)
[2022-01-22] MEDS: Dorzolamide/Timolo 2.23%/0.68% 10 ML DRBTL 1 DROP EYE-RIGHT ×2 (10:43→21:29)
[2022-01-22 11:15] LABS: Glucose, Whole Blood 197 mg/dL (60-115)
[2022-01-22] MEDS: Insulin Lispro 100 UNIT/ML 3 ML VIAL SUBCUT ×3 (11:36→21:27)
--- NOTE | 2022-01-22 13:38 | P.PNIM_ITS ---
Subjective Subjective Date of Service: 01/22/22 Interval History: Breathing has improved though In AF, rate now in 70s off diltiazem gtt No chest pain Review of Systems Review of Systems: Yes all other systems are reviewed and are negative Physical Exam Vital Signs: Vital Signs: Last Vital Signs Temp 98.1 F 01/22/22 12:00 Pulse 90 01/22/22 12:00 Resp 18 01/22/22 07:15 BP 113/64 01/22/22 12:00 Pulse Ox 91 L 01/22/22 12:00 O2 Del Method 01/22/22 07:15 O2 Flow Rate 2 01/22/22 07:15 BMI result Body Mass Index 25.9 Appearing in no acute distress lung sounds are clear to auscultation heart regular rate rhythm, clear S1, S2 positive bowel sounds, abdomen is soft, nontender neuro patient is alert x3, no focal deficits LE edema Objective Data Active Medications Acetaminophen (Acetaminophen 325 Mg Tablet) 650 mg PO Q6H PRN PRN Reason: Pain, Mild (Pain Scale 1-3) Last Admin: 01/18/22 21:15 Dose: 650 mg Documented By: MARY Acetazolamide (Acetazolamide 250 Mg Tablet) 500 mg PO BID REPLACED BY [facility] Last Admin: 01/22/22 10:41 Dose: 500 mg Documented By: MICHAEL Atorvastatin Calcium (Atorvastatin Calcium 80 Mg Tablet) 80 mg PO DAILY REPLACED BY [facility] Last Admin: 01/22/22 10:41 Dose: 80 mg Documented By: MICHAEL Atropine Sulfate (Atropine Sulfate 1 % Ophth Patricia 2 Ml Bottle) 1 drop EYE-RIGHT BID REPLACED BY [facility] Last Admin: 01/22/22 10:43 Dose: 1 drop Documented By: MICHAEL Brimonidine Tartrate (Brimonidine Tartrate 0.2% Oph 5 Ml Bottle) 1 drop EYE- RIGHT BID REPLACED BY [facility] Last Admin: 01/22/22 10:43 Dose: 1 drop Documented By: MICHAEL Cyanocobalamin (Cyanocobalamin (Vitamin B-12) 1,000 Mcg Tablet) 1,000 mcg PO DAILY REPLACED BY [facility] Last Admin: 01/22/22 10:42 Dose: 1,000 mcg Documented By: MICHAEL Dextrose (Dextrose 50 % 25 Gm/50 Ml Syringe) 25 gm IVPUSH Q15M PRN; Protocol PRN Reason: per Hypoglycemia Standing Ord. Docusate Sodium (Docusate Sodium 100 Mg Capsule) 100 mg PO BID PRN PRN Reason: constipation Dorzolamide/Timolol (Dorzolamide/Timolo 2.23%/0.68% 10 Ml Drbtl) 1 drop EYE- RIGHT BID REPLACED BY [facility] Last Admin: 01/22/22 10:43 Dose: 1 drop Documented By: MICHAEL Empagliflozin (Empagliflozin 10 Mg Tablet) 10 mg PO DAILY REPLACED BY [facility] Last Admin: 01/22/22 10:41 Dose: 10 mg Documented By: MICHAEL Famotidine (Famotidine 20 Mg Tablet) 20 mg PO BID REPLACED BY [facility] Last Admin: 01/22/22 10:41 Dose: 20 mg Documented By: MICHAEL Ferrous Sulfate (Ferrous Sulfate 324 Mg Tablet.Dr) 324 mg PO DAILY REPLACED BY [facility] Last Admin: 01/22/22 10:41 Dose: 324 mg Documented By: MICHAEL Furosemide (Furosemide 20 Mg/2 Ml Vial) 20 mg IVPUSH BID@0900,1800 REPLACED BY [facility]; Protocol Last Admin: 01/22/22 10:42 Dose: 20 mg Documented By: MICHAEL Gabapentin (Gabapentin 100 Mg Capsule) 100 mg PO BEDTIME REPLACED BY [facility] Last Admin: 01/21/22 21:46 Dose: 100 mg Documented By: TRICIA Glucose (Glucose Gel 15 Gm Gel..Gram.) 15 gm PO Q15M PRN; Protocol PRN Reason: per Hypoglycemia Standing Ord. Insulin Glargine (Insulin Glargine,Hum.Rec.Anlog 100 Unit/Ml 10 Ml Vial) 14 unit SUBCUT BEDTIME REPLACED BY [facility] Last Admin: 01/21/22 21:47 Dose: 14 unit Documented By: TRICIA Insulin Human Lispro (Insulin Lispro 100 Unit/Ml 3 Ml Vial) 0 unit SUBCUT QIDACHS REPLACED BY [facility]; Protocol Last Admin: 01/22/22 11:36 Dose: 2 unit Documented By: MICHAEL Latanoprost (Latanoprost 0.005 % Ophth Patricia 2.5 Ml Drops) 1 drop EYE-RIGHT DAILY@2200 REPLACED BY [facility] Last Admin: 01/21/22 21:50 Dose: Not Given Documented By: TRICIA Non-Admin Reason: Med Not Available Morphine Sulfate (Morphine Sulfate 2 Mg/Ml Cartridge) 2 mg IVPUSH Q1H PRN; Protocol PRN Reason: WOB Last Admin: 01/21/22 12:57 Dose: 2 mg Documented By: MANDY Oxycodone HCl (Oxycodone Hcl Immed Release 5 Mg Tablet) 5 mg PO Q4H PRN PRN Reason: Pain, Mild (Pain Scale 1-3) Last Admin: 01/21/22 12:23 Dose: 5 mg Documented By: MANDY Pharmacy Consult (Consult Rx Perform Med Rec) 1 each MISCELLANE ONCE PRN PRN Reason: Consult order Rivaroxaban (Rivaroxaban 15 Mg Tablet) 15 mg PO DAILY REPLACED BY [facility] Last Admin: 01/22/22 10:42 Dose: 15 mg Documented By: MICHAEL Senna (Sennosides 8.6 Mg Tablet) 17.2 mg PO BEDTIME PRN PRN Reason: Constipation Sertraline HCl (Sertraline Hcl 50 Mg Tablet) 50 mg PO DAILY REPLACED BY [facility] Last Admin: 01/22/22 10:42 Dose: 50 mg Documented By: MICHAEL Sodium Chloride (0.9 % Sodium Chloride Flush 3 Ml Syringe) 3 ml IVFLUSH QSHIFT REPLACED BY [facility] Last Admin: 01/22/22 10:43 Dose: 3 ml Documented By: MICHAEL Valsartan (Valsartan 40 Mg Tablet) 20 mg PO BID REPLACED BY [facility]; Protocol Last Admin: 01/22/22 10:42 Dose: 20 mg Documented By: MICHAEL Labs CBC & Chem 7: 01/22/22 06:16 01/22/22 06:16 Labs: Laboratory Results - last 24 hr 01/21/22 01/21/22 01/22/22 15:55 19:48 06:16 MCV 103.4 H D MCH 30.5 MCHC 29.5 L RDW 19.4 H Plt Count 157 L MPV 9.1 L Immature Gran % (Auto) 0.3 Neut % (Auto) 70.9 Lymph % (Auto) 11.8 L [place] % (Auto) 9.9 Eos % (Auto) 6.8 H Baso % (Auto) 0.3 Lymph # (Auto) 1.1 L [place] # (Auto) 0.9 Eos # (Auto) 0.6 H Baso # (Auto) 0.0 Abs Immat Gran (auto) 0.03 Absolute Neuts (auto) 6.4 Absolute Nucleated RBC 0.000 Nucleated RBC % (auto) 0.0 Anion Gap Estim Creat Clear Calc Estimated GFR POC Glucose 156 H 172 H Random Glucose Calcium Phosphorus Magnesium B-Natriuretic Peptide 01/22/22 01/22/22 01/22/22 06:16 06:16 07:17 MCV MCH MCHC RDW Plt Count MPV Immature Gran % (Auto) Neut % (Auto) Lymph % (Auto) [place] % (Auto) Eos % (Auto) Baso % (Auto) Lymph # (Auto) [place] # (Auto) Eos # (Auto) Baso # (Auto) Abs Immat Gran (auto) Absolute Neuts (auto) Absolute Nucleated RBC Nucleated RBC % (auto) Anion Gap 14 Estim Creat Clear Calc 38.3 Estimated GFR 48 POC Glucose 124 H Random Glucose 163 H D Calcium 9.1 Phosphorus 4.6 H Magnesium 2.5 B-Natriuretic Peptide 2170 H 01/22/22 10:57 MCV MCH MCHC RDW Plt Count MPV Immature Gran % (Auto) Neut % (Auto) Lymph % (Auto) [place] % (Auto) Eos % (Auto) Baso % (Auto) Lymph # (Auto) [place] # (Auto) Eos # (Auto) Baso # (Auto) Abs Immat Gran (auto) Absolute Neuts (auto) Absolute Nucleated RBC Nucleated RBC % (auto) Anion Gap Estim Creat Clear Calc Estimated GFR POC Glucose 197 H Random Glucose Calcium Phosphorus Magnesium B-Natriuretic Peptide Assessment and Plan (1) Ischemic cardiomyopathy: Status: Acute (2) Heart failure, systolic, with acute decompensation: Status: Acute Plan 81yo M with CAD s/p 4v CABG (2008), HTN, HLD, hx CVA x2, AF on rivaroxaban, and DM2 on insulin presenting with worsening exertional dyspnea, orthopnea, and leg edema and found to be hypoxic and volume overloaded, and in AF/RVR. His prior contact lens blocker, Dr Jay, moved away and he does not yet have a new car diologist. He also developed a hyphema in his R eye 1 week prior to admission and did not seek ophthalmologic care. Acute heart failure with reduced ejection fraction Secondary to AFib versus ischemia, needs ischemic workup Discussed with Cardiology plan to stop rivaroxaban tomorrow and start IV heparin, transferred to [facility] on Monday for cardiac catheterization Treated with Lasix drip, switched to oral Increase Coreg to 6.25 mg b.i.d., Lasix 40 mg daily Check BMP tomorrow Strict intake and output Paroxysmal atrial fibrillation with rapid ventricular response Initially treated with diltiazem drip subsequently stopped Continue carvedilol On rivaroxaban last dose tonight, start IV heparin tomorrow Cardiology following Acute hypoxic respiratory failure secondary to CHF. Resolved Oxygen titrated down Hypertension Continue carvedilol and valsartan History of coronary artery disease status post 4 vessel CABG Continue statin R eye hyphema and cornela abrasion delayed presentation timolol + latanoprost drops, erythromycin ointment, outpt f/u with Dr Burdick DM2, A1c 10 (11/01/21) continue basal insulin; hold OHGs; give correction-dose prandial insulin; add e mpagliflozin as above VTE prophylaxis: rivaroxaban switch to IV heparin 01/23/[address] Vogt Full code In my clinical judgment, the patient requires continued hospitalization for treatment of acute congestive heart failure and plan to transfer to tertiary facility Quality Stroke Does the patient have a stroke diagnosis?: No VTE Prior VTE?: No VTE Risk Level:: Medical - moderate - high VTE Device Contraindication: Procedure Contraindicated VTE Drug Contraindication: N/A - Med Ordered
[2022-01-22 16:18] LABS: Glucose, Whole Blood 340 mg/dL (60-115)
[2022-01-22 19:35] LABS: Glucose, Whole Blood 198 mg/dL (60-115)
[2022-01-22] MEDS: Gabapentin 100 MG CAPSULE PO (21:26)
[2022-01-22] MEDS: Insulin Glargine,Hum.rec.anlog 100 UNIT/ML 10 ML VIAL 14 UNIT SUBCUT (21:27)
[2022-01-23 03:20] VITALS: BP 121/68; PULSE 88; RESP 20; TEMP 36.8; O2SAT 92
[2022-01-23 07:11] VITALS: BP 101/64; PULSE 60; RESP 17; TEMP 36.4; O2SAT 97
[2022-01-23 07:22] LABS: Hematocrit 33.7 % (42.0-52.0); Hemoglobin 10.3 g/dl (14.0-18.0); Mean Corpuscular HGB Conc 30.6 g/dl (31.0-36.0); Mean Corpuscular Hemoglobin 30.9 pg (27.0-33.0); Mean Corpuscular Volume 101.2 fL (80.0-98.0); Mean Platelet Volume 9.5 fL (9.4-12.4); Platelet Count 180 X10*3/uL (160-400); Red Blood Count 3.33 X10*6/uL (4.60-5.80); Red Cell Distribution Width 18.9 % (11.0-16.0)
[2022-01-23 07:44] LABS: Anion Gap 15 (12-20); Blood Urea Nitrogen 34 mg/dL (9-16); Calcium 8.9 mg/dL (8.4-10.2); Carbon Dioxide 28 mmol/L (22-29); Chloride 103 mmol/L (96-108); Creatinine Clr Calc Pharmacy 44.3; Estimated Glomerular Filt Rate 57; Glucose Random 124 mg/dL (60-115); Potassium 3.8 mmol/L (3.3-5.1); Sodium 142 mmol/L (135-145)
[2022-01-23 07:55] LABS: Glucose, Whole Blood 118 mg/dL (60-115)
[2022-01-23 08:12] VITALS: BMI 23.8
[2022-01-23 08:53] LABS: PTT Heparin Drip 33.6 SEC (53-77.9)
--- NOTE | 2022-01-23 09:19 | HO.PM.IMPN ---
Subjective Subjective Date of Service: 01/23/22 Interval History: Breathing has improved though, but still sob with exertion No chest pain Review of Systems Review of Systems: Yes all other systems are reviewed and are negative Physical Exam Vital Signs: Vital Signs: Last Vital Signs Temp 97.5 F 01/23/22 07:11 Pulse 60 01/23/22 07:11 Resp 17 01/23/22 07:11 BP 101/64 01/23/22 07:11 Pulse Ox 97 01/23/22 07:11 O2 Del Method 01/23/22 07:11 O2 Flow Rate 2 01/23/22 07:11 FiO2 95 01/22/22 15:47 BMI result Body Mass Index 23.8 Appearing in no acute distress lung sounds are clear to auscultation heart regular rate rhythm, clear S1, S2 positive bowel sounds, abdomen is soft, nontender neuro patient is alert x3, no focal deficits Objective Data Active Medications Acetaminophen (Acetaminophen 325 Mg Tablet) 650 mg PO Q6H PRN PRN Reason: Pain, Mild (Pain Scale 1-3) Last Admin: 01/18/22 21:15 Dose: 650 mg Documented By: MARY Acetazolamide (Acetazolamide 250 Mg Tablet) 500 mg PO BID [facility] Last Admin: 01/22/22 21:26 Dose: 500 mg Documented By: MAYELA Atorvastatin Calcium (Atorvastatin Calcium 80 Mg Tablet) 80 mg PO DAILY [facility] Last Admin: 01/22/22 10:41 Dose: 80 mg Documented By: MICHAEL Atropine Sulfate (Atropine Sulfate 1 % Ophth Patricia 2 Ml Bottle) 1 drop EYE-RIGHT BID [facility] Last Admin: 01/22/22 21:28 Dose: 1 drop Documented By: MAYELA Brimonidine Tartrate (Brimonidine Tartrate 0.2% Oph 5 Ml Bottle) 1 drop EYE-RIGHT BID [facility] Last Admin: 01/22/22 21:29 Dose: 1 drop Documented By: MAYELA Carvedilol (Carvedilol 6.25 Mg Tablet) 6.25 mg PO BID [facility]; Protocol Cyanocobalamin (Cyanocobalamin (Vitamin B-12) 1,000 Mcg Tablet) 1,000 mcg PO DAILY [facility] Last Admin: 01/22/22 10:42 Dose: 1,000 mcg Documented By: MICHAEL Dextrose (Dextrose 50 % 25 Gm/50 Ml Syringe) 25 gm IVPUSH Q15M PRN; Protocol PRN Reason: per Hypoglycemia Standing Ord. Docusate Sodium (Docusate Sodium 100 Mg Capsule) 100 mg PO BID PRN PRN Reason: constipation Dorzolamide/Timolol (Dorzolamide/Timolo 2.23%/0.68% 10 Ml Drbtl) 1 drop EYE-RIGHT BID [facility] Last Admin: 01/22/22 21:29 Dose: 1 drop Documented By: MAYELA Empagliflozin (Empagliflozin 10 Mg Tablet) 10 mg PO DAILY [facility] Last Admin: 01/22/22 10:41 Dose: 10 mg Documented By: MICHAEL Famotidine (Famotidine 20 Mg Tablet) 20 mg PO BID [facility] Last Admin: 01/22/22 21:27 Dose: 20 mg Documented By: MAYELA Ferrous Sulfate (Ferrous Sulfate 324 Mg Tablet.) 324 mg PO DAILY [facility] Last Admin: 01/22/22 10:41 Dose: 324 mg Documented By: MICHAEL Furosemide (Furosemide 20 Mg/2 Ml Vial) 40 mg IVPUSH DAILY [facility]; Protocol Gabapentin (Gabapentin 100 Mg Capsule) 100 mg PO BEDTIME [facility] Last Admin: 01/22/22 21:26 Dose: 100 mg Documented By: MAYELA Glucose (Glucose Gel 15 Gm Gel..Gram.) 15 gm PO Q15M PRN; Protocol PRN Reason: per Hypoglycemia Standing Ord. Heparin Sodium (Porcine) (Heparin Sodium,Porcine 5,000 Unit/Ml Vial) 2,700 unit 40 unit/kg (2700 unit) IVPUSH PROTOCOL BOLUS PRN PRN Reason: 40 unit/kg - Heparin Protocol Heparin Sodium (Porcine) (Heparin Sodium,Porcine 5,000 Unit/Ml Vial) 5,400 unit 80 unit/kg (5400 unit) IVPUSH PROTOCOL BOLUS PRN PRN Reason: 80 unit/kg - Heparin Protocol Heparin Sodium/Sodium Chloride (Heparin Sodium,Porcine/1/2ns) 25,000 unit in 250 mls @ 0 mls/hr IVCONT .Q0M JOEY; Protocol Insulin Glargine (Insulin Glargine,Hum.Rec.Anlog 100 Unit/Ml 10 Ml Vial) 14 unit SUBCUT BEDTIME [facility] Last Admin: 01/22/22 21:27 Dose: 14 unit Documented By: MAYELA Insulin Human Lispro (Insulin Lispro 100 Unit/Ml 3 Ml Vial) 0 unit SUBCUT QIDACHS [facility]; Protocol Last Admin: 01/22/22 21:27 Dose: 2 unit Documented By: MAYELA Latanoprost (Latanoprost 0.005 % Ophth Patricia 2.5 Ml Drops) 1 drop EYE-RIGHT DAILY@2200 [facility] Last Admin: 01/23/22 00:36 Dose: Not Given Documented By: MAYELA Non-Admin Reason: Patient Refused Morphine Sulfate (Morphine Sulfate 2 Mg/Ml Cartridge) 2 mg IVPUSH Q1H PRN; Protocol PRN Reason: WOB Last Admin: 01/21/22 12:57 Dose: 2 mg Documented By: MANDY Oxycodone HCl (Oxycodone Hcl Immed Release 5 Mg Tablet) 5 mg PO Q4H PRN PRN Reason: Pain, Mild (Pain Scale 1-3) Last Admin: 01/21/22 12:23 Dose: 5 mg Documented By: MANDY Pharmacy Consult (Consult Rx Perform Med Rec) 1 each MISCELLANE ONCE PRN PRN Reason: Consult order Senna (Sennosides 8.6 Mg Tablet) 17.2 mg PO BEDTIME PRN PRN Reason: Constipation Sertraline HCl (Sertraline Hcl 50 Mg Tablet) 50 mg PO DAILY [facility] Last Admin: 01/22/22 10:42 Dose: 50 mg Documented By: MICHAEL Sodium Chloride (0.9 % Sodium Chloride Flush 3 Ml Syringe) 3 ml IVFLUSH QSHIFT [facility] Last Admin: 01/22/22 21:34 Dose: 3 ml Documented By: MAYELA Valsartan (Valsartan 40 Mg Tablet) 20 mg PO BID [facility]; Protocol Last Admin: 01/22/22 21:26 Dose: 20 mg Documented By: MAYELA Labs CBC & Chem 7: 01/23/22 06:28 01/23/22 06:28 Labs: Laboratory Results - last 24 hr 01/22/22 01/22/22 01/22/22 10:57 16:14 19:32 MCV MCH MCHC RDW Plt Count MPV Absolute Nucleated RBC Nucleated RBC % (auto) aPTT Heparin Protocol Anion Gap Estim Creat Clear Calc Estimated GFR POC Glucose 197 H 340 H 198 H Random Glucose Calcium 01/23/22 01/23/22 01/23/22 06:28 06:28 07:13 MCV 101.2 H MCH 30.9 MCHC 30.6 L RDW 18.9 H Plt Count 180 MPV 9.5 Absolute Nucleated RBC 0.000 Nucleated RBC % (auto) 0.0 aPTT Heparin Protocol Anion Gap 15 Estim Creat Clear Calc 44.3 Estimated GFR 57 POC Glucose 118 H Random Glucose 124 H Calcium 8.9 01/23/22 08:34 MCV MCH MCHC RDW Plt Count MPV Absolute Nucleated RBC Nucleated RBC % (auto) aPTT Heparin Protocol 33.6 L Anion Gap Estim Creat Clear Calc Estimated GFR POC Glucose Random Glucose Calcium Assessment and Plan (1) Ischemic cardiomyopathy: Status: Acute (2) Heart failure, systolic, with acute decompensation: Status: Acute Plan 81yo M with CAD s/p 4v CABG (2008), HTN, HLD, hx CVA x2, AF on rivaroxaban, and DM2 on insulin presenting with worsening exertional dyspnea, orthopnea, and leg edema and found to be hypoxic and volume overloaded, and in AF/RVR. 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 He also developed a hyphema in his R eye 1 week prior to admission and did not seek ophthalmologic care. Acute heart failure with reduced ejection fraction Secondary to AFib versus ischemia, needs ischemic workup Discussed with Cardiology stop rivaroxaban and start IV heparin, transfer to [facility] on Monday for cardiac catheterization Treated with Lasix drip, switched to oral Increase Coreg to 6.25 mg b.i.d., Lasix 40 mg daily Strict intake and output Paroxysmal atrial fibrillation with rapid ventricular response Initially treated with diltiazem drip subsequently stopped Continue carvedilol On rivaroxaban last dose tonight, IV heparin started today Cardiology following Acute hypoxic respiratory failure secondary to CHF. Resolved Oxygen titrated down Weakness Physical therapy evaluation per family request Hypertension Continue carvedilol and valsartan History of coronary artery disease status post 4 vessel CABG Continue statin R eye hyphema and cornela abrasion delayed presentation timolol + latanoprost drops, erythromycin ointment, outpt f/u with Dr Burdick DM2, A1c 10 (11/01/21) continue basal insulin; hold OHGs; give correction-dose prandial insulin; add empagliflozin as above VTE prophylaxis: rivaroxaban switch to IV heparin 01/23/[address] Vogt Full code In my clinical judgment, the patient requires continued hospitalization for treatment of acute congestive heart failure and plan to transfer to tertiary facility Quality Stroke Does the patient have a stroke diagnosis?: No VTE Prior VTE?: No VTE Risk Level:: Medical - moderate - high VTE Device Contraindication: Procedure Contraindicated VTE Drug Contraindication: N/A - Med Ordered
[2022-01-23] MEDS: acetaZOLAMIDE 250 MG TABLET 500 MG PO ×2 (09:33→20:22)
[2022-01-23] MEDS: Empagliflozin 10 MG TABLET PO (09:33)
[2022-01-23] MEDS: Furosemide 20 MG/2 ML VIAL 40 MG IVPUSH (09:33)
[2022-01-23] MEDS: Atorvastatin Calcium 80 MG TABLET PO (09:33)
[2022-01-23] MEDS: Valsartan 40 MG TABLET 20 MG PO ×2 (09:33→20:21)
[2022-01-23] MEDS: Cyanocobalamin (Vitamin B-12) 1,000 MCG TABLET 1000 MCG PO (09:33)
[2022-01-23] MEDS: Famotidine 20 MG TABLET PO ×2 (09:34→20:22)
[2022-01-23] MEDS: carvediloL 6.25 MG TABLET PO ×2 (09:34→20:21)
[2022-01-23] MEDS: Sertraline HCL 50 MG TABLET PO (09:34)
[2022-01-23] MEDS: Ferrous Sulfate 324 MG TABLET.DR PO (09:34)
[2022-01-23] MEDS: 0.9 % Sodium Chloride Flush 3 ML SYRINGE IVFLUSH ×2 (09:40→20:23)
[2022-01-23 11:01] VITALS: BP 119/68; PULSE 61; RESP 17; TEMP 36.9; O2SAT 93
[2022-01-23 11:54] LABS: Glucose, Whole Blood 218 mg/dL (60-115)
[2022-01-23] MEDS: Insulin Lispro 100 UNIT/ML 3 ML VIAL SUBCUT ×3 (12:21→20:21)
[2022-01-23] MEDS: Atropine Sulfate 1 % Ophth Sol 2 ML BOTTLE 1 DROP EYE-RIGHT ×2 (12:21→20:27)
[2022-01-23] MEDS: Brimonidine Tartrate 0.2% Oph 5 ML BOTTLE 1 DROP EYE-RIGHT ×2 (12:21→20:28)
[2022-01-23] MEDS: Heparin Sodium,Porcine/1/2NS 25,000 UNIT/250 ML IV.SOLN 9.38 UNIT IVCONT (12:43)
--- NOTE | 2022-01-23 13:06 | PM.PNCARD ---
Subjective Subjective Date of Service: 01/23/22 Principal diagnosis: Decompensated congestive heart failure Interval history: Patient is feeling better. Atrial fibrillation rate is controlled. Blood pressure is better controlled. Not having any significant worsening shortness of breath or leg pain. Having multiple episodes of short runs of ventricular arrhythmias. No bleeding issues. Creatinine is improved Review of Systems Constitutional: Reports no additional constitutional complaints Cardiovascular: Reports no additional cardiovascular complaints Respiratory: Reports no additional respiratory complaints Gastrointestinal: Reports no additional gastrointestinal complaints Physical Exam Vital Signs: Last Vital Signs Temp 98.4 F 01/23/22 11:01 Pulse 61 01/23/22 11:01 Resp 17 01/23/22 11:01 BP 119/68 01/23/22 11:01 Pulse Ox 93 01/23/22 11:01 O2 Del Method 01/23/22 11:01 O2 Flow Rate 2 01/23/22 11:01 FiO2 95 01/22/22 15:47 BMI result Body Mass Index 23.8 Const General: cooperative, comfortable, no acute distress, alert and awake Nutritional Appearance: overweight Orientation/consciousness: patient oriented x3 Neck Neck: Yes trachea midline, Yes supple and Yes no JVD Resp Effort & Inspection: normal respiratory effort Auscultation: crackles (Coarse at right base), rales and diminished lung sounds Cardio Jugular venous distension: no JVD Rhythm: abnormal rhythm irregularly irregular Heart sounds: S1 normal heart sound present, S2 normal heart sound present, no click, no gallops and Murmur heart sound present GI Auscultation: normal bowel sounds Skin General skin exam: no rashes or lesions noted and ecchymosis Neuro General: patient oriented x3 and no focal motor deficits Extrem General: No clubbing, No cyanosis and Yes edema Objective Labs and Meds Result diagrams: 01/23/22 06:28 01/23/22 06:28 Lab results: Laboratory Results - last 24 hr 01/22/22 01/22/22 01/23/22 16:14 19:32 06:28 WBC 9.0 RBC 3.33 L Hgb 10.3 L Hct 33.7 L MCV 101.2 H MCH 30.9 MCHC 30.6 L RDW 18.9 H Plt Count 180 MPV 9.5 Absolute Nucleated RBC 0.000 Nucleated RBC % (auto) 0.0 aPTT Heparin Protocol Sodium Potassium Chloride Carbon Dioxide Anion Gap BUN Creatinine Estim Creat Clear Calc Estimated GFR POC Glucose 340 H 198 H Random Glucose Calcium 01/23/22 01/23/22 01/23/22 06:28 07:13 08:34 WBC RBC Hgb Hct MCV MCH MCHC RDW Plt Count MPV Absolute Nucleated RBC Nucleated RBC % (auto) aPTT Heparin Protocol 33.6 L Sodium 142 Potassium 3.8 Chloride 103 Carbon Dioxide 28 Anion Gap 15 BUN 34 H Creatinine 1.22 Estim Creat Clear Calc 44.3 Estimated GFR 57 POC Glucose 118 H Random Glucose 124 H Calcium 8.9 01/23/22 11:04 WBC RBC Hgb Hct MCV MCH MCHC RDW Plt Count MPV Absolute Nucleated RBC Nucleated RBC % (auto) aPTT Heparin Protocol Sodium Potassium Chloride Carbon Dioxide Anion Gap BUN Creatinine Estim Creat Clear Calc Estimated GFR POC Glucose 218 H Random Glucose Calcium Progress Note: A&P Assessment and plan (1) Heart failure, systolic, with acute decompensation: Status: Acute Assessment and Plan: Acute heart failure decompensation with severe LV systolic dysfunction question ischemic. He has severe LV systolic dysfunction which could be tachycardia mediated versus ischemic. Will require cardiac catheterization to determine this. Switch to IV heparin and hold his oral Eliquis hopefully since yesterday. Continue valsartan and carvedilol therapy. Cannot further maximize due to his lower blood pressure. Continue Lasix 40 mg IV push daily. Will also hold off on Aldactone and Jardiance therapy as of now. Continue strict intake and output chart. Continue monitor renal function and please obtain a BNP tomorrow. Will arrange for transfer for cardiac catheterization tomorrow. This was discussed with him and need for this was discussed with him and his significant other and they understand and agree. This is to determine the cause of his heart failure as well as possible treatment plan. They are not sure if he requires repeat surgical revascularization that there will pursue that (2) Afib: Status: Acute Assessment and Plan: Atrial fibrillation, currently rate controlled. Continue rate control strategy with carvedilol. Switch oral Eliquis to IV heparin till cardiac catheterization as been accomplished. Eventually may need to pursue rhythm control approach. (3) CAD (coronary artery disease): Status: Acute Assessment and Plan: CAD status post remote coronary artery bypass grafting. Requires further evaluation with cardiac catheterization to see if this is a cause for worsening LV systolic dysfunction heart failure. Will transfer to [facility] for cardiac catheterization. The procedure were discussed in details including risk, benefits, alternatives. They understand agree. Meanwhile continue heparin, statins and carvedilol therapy. Will continue to follow with you Time Spent With Patient Time: Total time spent is greater than 50% in coordination of care (as documented) at patient's floor/unit and/or counseling patient: Progress Note: Quality Stroke Does the patient have a stroke diagnosis?: No Procedures Date of Service Date of Service: 01/23/22
--- NOTE | 2022-01-23 13:07 | PC.NURSE ---
heparin drip started at 1245 at a doserate of 14 units/kg/hr
[2022-01-23] MEDS: Dorzolamide/Timolo 2.23%/0.68% 10 ML DRBTL 1 DROP EYE-RIGHT ×2 (15:07→20:27)
[2022-01-23 15:40] VITALS: BP 126/79; PULSE 104; RESP 16; TEMP 37; O2SAT 96
[2022-01-23 16:24] LABS: Glucose, Whole Blood 243 mg/dL (60-115)
[2022-01-23 18:35] VITALS: BP 140/61; PULSE 93; RESP 18; TEMP 36.6; O2SAT 96
[2022-01-23 19:06] LABS: PTT Heparin Drip 57.9 SEC (53-77.9)
[2022-01-23 20:15] LABS: Glucose, Whole Blood 207 mg/dL (60-115)
[2022-01-23] MEDS: Gabapentin 100 MG CAPSULE PO (20:22)
[2022-01-23] MEDS: Insulin Glargine,Hum.rec.anlog 100 UNIT/ML 10 ML VIAL 14 UNIT SUBCUT (20:23)
[2022-01-23] MEDS: Latanoprost 0.005 % Ophth Sol 2.5 ML DROPS 1 DROP EYE-RIGHT (22:28)
[2022-01-23 23:05] VITALS: BP 112/64; PULSE 92; RESP 18; TEMP 36.7; O2SAT 92
[2022-01-24 03:03] VITALS: BP 144/77; PULSE 104; RESP 18; TEMP 36.7; O2SAT 98
[2022-01-24 06:36] LABS: PTT Heparin Drip 67.2 SEC (53-77.9)
[2022-01-24 07:20] VITALS: BP 126/65; PULSE 82; RESP 20; TEMP 36.5; O2SAT 98
[2022-01-24 07:27] LABS: Glucose, Whole Blood 140 mg/dL (60-115)
[2022-01-24] MEDS: Heparin Sodium,Porcine/1/2NS 25,000 UNIT/250 ML IV.SOLN 9.38 UNIT IVCONT (07:46)
--- NOTE | 2022-01-24 08:22 | P.DS_ITS ---
DS: Providers Provider Date of Service: 01/24/22 Date of admission: 01/18/22 12:51 Primary care physician: Heladio Aparicio MD Consults: 01/18/22 12:08 Consult to Cardiology Routine Consulting Provider: Cristino Pugh Reason for consultation: CHF/AF/RVR 01/21/22 10:12 Consult to Wound Care Stat Consulting Provider: Michelle Bingham Reason for consultation: BILATERAL LEG WOUNDS/WEEPING/STAGING, ADVISE AND TREAT Has provider been notified: Yes Attending physician on discharge: Torsten Orona Discharging clinician: Karrie Gray DS: Diagnosis Discharge Diagnosis (1) Heart failure, systolic, with acute decompensation: Status: Acute (2) Afib: Status: Acute (3) CAD (coronary artery disease): Status: Acute DS: Summary Hospital Course Hospital Course: HP as per admitting provider 81yo M with CAD s/p CABG, HTN, HLD, hx CVA x2, AF on rivaroxaban, and DM2 on insulin? presenting with 2 weeks of worsening exertional dyspnea, orthopnea, and leg edema.? He denies chest pain or palpitations.? No recent medication changes or nonadherence.? His edema progressed to the point where he developed weeping blisters on his legs and was applying Silvadene and wrapping them with gauze.? Additionally, his right eye is red and he cannot see out of it.? No known foreign body exposure. He did not seek ophthalmologic care.? In the ED, he was found to be hypoxic with room air SaO2 of 89%.? He was in rapid AF with rate in the 130s.? He was dyspneic with RR 28-31.? CXR showed pulmonary vascular congestion and BNP was elevated to 2911.? He was given 20, then 40 mg of IV furosemide.? He was given 10 mg of IV diltiazem then started on an infusion that is currently running at 10 mg/hr with his ventricular rate in the 90s. The ED physician did a fluorescein slit lamp examination and noted hyphema on the right with pinpoint corneal ulcer; pressures were elevated at 61.? She spoke to the on-call hvac operations technician, Dr Burdick, who recommended supportive care with timolol, latanoprost, and erythromycin given the delayed presentation; OK to resume rivaroxaban . Acute heart failure with reduced ejection fraction Secondary to AFib versus ischemia, plan to transfer to [facility] for cardiac catheterization Rivaroxaban stopped and IV heparin started in in to see patient for transfer, continue rivaroxaban post cardiac catheterization Treated with Lasix drip, switched to oral Increase Coreg to 6.25 mg b.i.d., Lasix 40 mg daily Strict intake and output Paroxysmal atrial fibrillation with rapid ventricular response. Resolved Initially treated with diltiazem drip subsequently stopped Continue carvedilol IV heparin in place of rivaroxaban pre cardiac catheterization Acute hypoxic respiratory failure secondary to CHF.? Resolved Oxygen titrated down Weakness Physical therapy evaluation per family request Hypertension Continue carvedilol and valsartan History of coronary artery disease status post 4 vessel CABG Continue statin R eye hyphema and cornela abrasion delayed presentation timolol + latanoprost drops, erythromycin ointment, outpt f/u with Dr Burdick DM2, A1c 10 (11/01/21) continue basal insulin; hold OHGs; give correction-dose prandial insulin; add empagliflozin as above Time Spent with Patient Time attestation: Total time spent providing and/or coordinating discharge services: Discharge coordination time: Greater than 30 minutes Quality: Safe Use of Opioids Does Pt have an Active Cancer Diagnosis on the Problem List?: No Quality: Stroke Does the patient have a stroke diagnosis?: No Physical Exam Vital Signs: Vital Signs: Last Vital Signs Temp 97.7 F 01/24/22 07:20 Pulse 82 01/24/22 07:20 Resp 20 01/24/22 07:20 BP 126/65 01/24/22 07:20 Pulse Ox 98 01/24/22 07:20 O2 Del Method 01/24/22 07:20 O2 Flow Rate 2 01/24/22 07:20 FiO2 95 01/22/22 15:47 BMI result Body Mass Index 23.8 Appearing in no acute distress head is normocephalic atraumatic eyes pupils are PERRLA sclera is anicteric mouth throat mucous membranes are intact and moist neck is supple no lymphadenopathy, no JVD noted lung sounds are clear to auscultation heart regular rate rhythm, clear S1, S2 positive bowel sounds, abdomen is soft, nontender neuro patient is alert x3, no focal deficits DS: Data Data Completed and Pending Labs on day of discharge: Laboratory Results - last 24 hr 01/23/22 01/23/22 01/23/22 08:34 11:04 16:20 aPTT Heparin Protocol 33.6 L POC Glucose 218 H 243 H 01/23/22 01/23/22 01/24/22 18:36 18:51 00:53 aPTT Heparin Protocol 57.9 D 61.0 POC Glucose 207 H 01/24/22 01/24/22 06:00 07:22 aPTT Heparin Protocol 67.2 POC Glucose 140 H Discharge Plan Discharge Anticipated Discharge Date/Time: 01/24/22 08:15 Patient Disposition: Xfer Acute [facility] Discharge Diagnosis: Acute heart failure with reduced ejection fraction Paroxysmal atrial fibrillation with rapid ventricular response Acute hypoxic respiratory failure Referrals: [facility] [Other] - 1 Week Heladio Aparicio MD [Primary Care Provider] - 1 Week Discharge Medications: New carvedilol 6.25 mg Tablet 6.25 mg PO BID Qty: 60 0RF Protocol: Hold for SBP/HR < HOLD for SBP < : 90 HOLD for HR < : 60 acetazolamide 250 mg Tablet 500 mg PO BID Qty: 14 0RF valsartan 40 mg Tablet 20 mg PO BID Qty: 30 0RF Protocol: Hold for SBP< HOLD for SBP < : 90 heparin(porcine) in 0.45% NaCl 25,000 unit/250 mL Parenteral Solution 25,000 unit continuous IV infusion .Q0M Qty: 250 0RF Continued atorvastatin 80 mg tablet 1 tab PO DAILY glipizide 10 mg tablet extended release 24hr 1 tab PO BID famotidine 20 mg tablet 1 tab PO BID metformin 1,000 mg tablet 1 tab PO DAILY lisinopril 10 mg tablet 1 tab PO DAILY furosemide 20 mg tablet 2 tab PO DAILY sertraline 50 mg tablet 1 tab PO DAILY Levemir FlexTouch U-100 Insuln 100 unit/mL (3 mL) insulin pen 20 unit subcut BEDTIME cyanocobalamin (vitamin B-12) 1,000 mcg Tablet 1,000 mcg PO DAILY ferrous sulfate 324 mg (65 mg iron) Tablet,Delayed Release (Dr/Ec) 324 mg PO DAILY aspirin 325 mg Tablet 975 mg PO BID PRN (Reason: Pain) Rx Instructions: reported by patient, takes 3 tabs of 325 mg asprin three times daily as needed for pain in legs naproxen sodium 220 mg Tablet 440 mg PO DAILY Held Xarelto 20 mg tablet 1 tab PO DAILY Hold Instructions: Resume on 01/29/22. Resume post cardiac catheterization Discontinued carvedilol 12.5 mg tablet 1 tab PO BID Discharge Orders: Discharge Order (Routine); Ordered 01/24/22 Ordered By: Karrie Gray Diet: Advance to usual diet Activity on Discharge: As tolerated Stand Alone Forms: Patient Portal Discharge page Care Plan Goals: Transfer to tertiary facility for cardiac catheterization due to acute heart failure with decompensation and severe LV systolic dysfunction with a question of ischemia Health Concerns: Acute heart failure with reduced ejection fraction Paroxysmal atrial fibrillation with rapid ventricular response Acute hypoxic respiratory failure Plan of Treatment: Transferred to [facility] for cardiac catheterization Assessment: See discharge summary Discharge Date/Time: 01/24/22 20:00
[2022-01-24] MEDS: Brimonidine Tartrate 0.2% Oph 5 ML BOTTLE 1 DROP EYE-RIGHT (09:24)
[2022-01-24] MEDS: 0.9 % Sodium Chloride Flush 3 ML SYRINGE IVFLUSH ×2 (09:24→16:44)
[2022-01-24] MEDS: carvediloL 6.25 MG TABLET PO (09:25)
[2022-01-24] MEDS: Dorzolamide/Timolo 2.23%/0.68% 10 ML DRBTL 1 DROP EYE-RIGHT (09:25)
[2022-01-24] MEDS: acetaZOLAMIDE 250 MG TABLET 500 MG PO (09:25)
[2022-01-24] MEDS: Valsartan 40 MG TABLET 20 MG PO (09:25)
[2022-01-24] MEDS: Famotidine 20 MG TABLET PO (09:25)
[2022-01-24] MEDS: Furosemide 20 MG/2 ML VIAL 40 MG IVPUSH (09:25)
[2022-01-24] MEDS: Atropine Sulfate 1 % Ophth Sol 2 ML BOTTLE 1 DROP EYE-RIGHT (09:25)
[2022-01-24] MEDS: Empagliflozin 10 MG TABLET PO (09:26)
[2022-01-24] MEDS: Sertraline HCL 50 MG TABLET PO (09:26)
[2022-01-24] MEDS: Ferrous Sulfate 324 MG TABLET.DR PO (09:26)
[2022-01-24] MEDS: Atorvastatin Calcium 80 MG TABLET PO (09:26)
[2022-01-24] MEDS: Cyanocobalamin (Vitamin B-12) 1,000 MCG TABLET 1000 MCG PO (09:26)
--- NOTE | 2022-01-24 11:02 | MHC.CM.PN ---
Per ROUNDS discussion, Patient will be dc/transferred to [facility] for Cardiac Catheterization.
[2022-01-24 11:12] LABS: Glucose, Whole Blood 181 mg/dL (60-115)
[2022-01-24 11:13] VITALS: BP 119/58; PULSE 88; RESP 20; TEMP 36.4; O2SAT 97
--- NOTE | 2022-01-24 11:14 | MHC.SP.ADU ---
Referring provider: Karrie Gray Reason for Referral: Aphasia Type of Treatment: 10464 Evaluation Speech Sound Production WITH Language Date of Plan of Treatment: 01/24/22 Onset of Symptoms/Illness: 01/22/22 Date Treatment Started: 01/24/22 Medical Diagnosis: Ischemic cardiomyopathy, heart failure, systolic, with acute decompensation Primary Speech Language Diagnosis: R47.01 Aphasia Secondary Speech Language Diagnosis: History Pt has been here since 01/18, admitted with ischemic cardiomyopathy, heart failure, systolic, with acute decompensation. Per hospitalist report, pt will transfer to [facility] today for cardiac catheterization. Order was placed for evaluation of aphasia. Medical History: Other: AFIB, CAD, CHF, COPD, diabetes, hypertension, hx CVA x2, hyperlipidemia Respiratory Needs: Nasal Cannula Patient Orientation: Alert & Oriented x 4 Swallowing History: Dysphagia Specific: Comments: Pre-eval Risk for Aspiration: Pre-evaluation Dietary Consistencies: Regular Pre-eval Liquid Intake: Thin Pre-eval Medication Intake: Whole with Liquid Reported Speech, Language, Cognition difficulties: Speaking Assessment Speech Production: Within Functional Limits Clinical Impression: Intact Observations: Pt's speech was clear and 100% intelligible to this clinician, an unfamiliar but trained listener. Tests of Speech & Lang Adults: Clinical Impression: Intact Observations: CLIENT SERVICE COORDINATOR saw pt at bedside for speech and language screening. Pt was alert and oriented. Pt was able to provide his full name and date of . Pt stated he was at [facility] for his shortness of breath. He was able to provide the date and year. Pt identified 5/5 items in the room by pointing. Pt correctly named 24/27 line images during a confrontational naming task. He named ladle as spoon, best as cooking device, and was unable to name cutting board. No difficulties with word and sentence repetition. Pt correctly repeated 6/6 single words and 5/5 sentences verbally presented to him. Pt correctly answered responsive naming WH-questions (i.e. What do you use to cut paper? ) in 6/6 trials without difficulty. Pt followed simple and multistep commands without difficulty. Pt completed sentences accurately in 5/5 trials. Pt repeated 3 word list immediately and after a short time delay (30 sec). After continuing on with the screening, pt was not able to recall the words after a delay. Pt recalled number digit series with up to 7 digits correctly. Pt was able to spell the word WORLD backwards without any prompting. Impressions and Recommendations Summary: Impact on Daily Function/Activity Limitations: Daily Activities: None Interpersonal Interactions: None Education: Employment: Community: None Prognosis for Improvement: Good Comment: Recommendation for Speech Therapy: Outpatient Speech Therapy Pt was seen for a speech-language screening at bedside. Overall screening was quite unremarkable. Pt was oriented x4. Pt engaged in conversation with ease. Pt's speech was clear and 100% intelligible. Pt followed commands and answered questions appropriately. Repetition was intact, no difficulties identifying items in the room. Pt recalled number series with up to 7 digits. Pt correctly named 23/27 items during a confrontational naming task. Pt's receptive and expressive language abilities appear to be functional based on today's observations. Pt may benefit from a more comprehensive outpatient cognitive linguistic evaluation given hx of CVA- This would rule in/out any mild impairments. Patient Education: Completed: Yes Patient/Caregiver Education: Described Results of Evaluation Comments/Barriers to Learning: Clinic Director Clinican/Clinical Fellow: No Supervisory Statement: N/A Speech Language Pathologist: Apple Medel M.A., CCC-CLIENT SERVICE COORDINATOR
[2022-01-24] MEDS: Insulin Lispro 100 UNIT/ML 3 ML VIAL SUBCUT ×2 (11:30→16:44)
--- NOTE | 2022-01-24 11:44 | P.PNCA_ITS ---
Subjective Subjective Date of Service: 01/24/22 Principal diagnosis: Decompensated congestive heart failure, AF, CMP Interval history: Seen at 0930. Today he reports breathing is comfortable. Still wearing O2 with nasal cannula. Denies orthopnea, no cough. No chest pains, palpitations, dizziness. Lower legs each with dressings/ thad wraps. No drainage present. IV heparin drip infusing. Tele showing atrial fibrillation, intermittent PVCs and up to 3 beat VT, average rates 80-90s. He is aware of plan for [facility] transfer today and is agreeable. Review of Systems Review of Systems as above Yes all other systems are reviewed and are negative Physical Exam Vital Signs: Last Vital Signs Temp 97.5 F 01/24/22 11:13 Pulse 88 01/24/22 11:13 Resp 20 01/24/22 11:13 BP 119/58 L 01/24/22 11:13 Pulse Ox 97 01/24/22 11:13 O2 Del Method 01/24/22 11:13 O2 Flow Rate 2 01/24/22 11:13 FiO2 95 01/22/22 15:47 BMI result Body Mass Index 23.8 Const General: cooperative, comfortable and no acute distress Orientation/consciousness: patient oriented x3 Neck Neck: Yes normal visual inspection Resp Other: I laid HOB flat for few minutes without report of orthopnea. Effort & Inspection: normal respiratory effort Auscultation: clear to auscultation bilaterally, crackles (left lower lobe), rhonchi (scattered on right) and no wheezes Cardio Rate: regular rate Rhythm: abnormal rhythm Heart sounds: S1 normal heart sound present, S2 normal heart sound present, no gallops, Murmur heart sound present (faint systolic) and no rubs GI Inspection: Yes normal to inspection Neuro General: patient oriented x3 Extrem Other: dressings with thad wraps to each lower extremity Psych Appearance: grossly normal Mental Status: mental status grossly normal Objective Labs and Meds Result diagrams: 01/23/22 06:28 01/23/22 06:28 Lab results: Laboratory Results - last 24 hr 01/23/22 01/23/22 01/23/22 11:04 16:20 18:36 aPTT Heparin Protocol POC Glucose 218 H 243 H 207 H 01/23/22 01/24/22 01/24/22 18:51 00:53 06:00 aPTT Heparin Protocol 57.9 D 61.0 67.2 POC Glucose 01/24/22 01/24/22 07:22 11:04 aPTT Heparin Protocol POC Glucose 140 H 181 H Progress Note: A&P Assessment and plan (1) Heart failure, systolic, with acute decompensation: Status: Acute Assessment and Plan: Admit with decompensated HF. Acute systolic. Echo showed EF 20-25%, mod dilated LA, mild to mod MR and TR, mild , severe increase in RVSP. He has hx of PAF and was in afib RVR on admit. He has been diuresed and treated withafib rate control. Fluid balance this admit neg 16 liters. Cr 1.22 today. He reports breathing much improved. No orthopnea noted when layed flat in bed. Still wearing O2 at 2 liters with cannula. Some rales noted left base. Could be atelectasis as well. Will continue current meds without change: Lasix, Valsartan, carvedilol. He has known hx of 4vessel CABG. Unknown if his reduced EF is related to Ischemia or afib. Plan will be to transfer him to [facility] to undergo cardiac cath. Reviewed procedure and risks with him( including infection, bleeding, [place], [place], stroke). He is agreeable to proceed. Tells me he has had cardiac cath in the past. Report called to hospitalist at [facility] and they will call IM when a bed is available. Dr Bello is aware and will be performing the cath tomorrow. (2) Ischemic cardiomyopathy: Status: Acute Assessment and Plan: Notes indicate a prior hx of mild ischemic CMP. This admit noted to have significant drop in EF down to 20-25%. At present he is being managed with Miranda sartan and carvedilol for neurohormonal modulation. Plan for cardiac cath as above. (3) CAD (coronary artery disease): Status: Acute Assessment and Plan: Hx of CAD with 4 vessel CABG 2008. APLMA to LAD, SVG to OM, diag, r PDA. He has not followed with cardiology for several years. No reports of anginal symptoms. Had increasing sob prior to this admission. Troponins mildly elevated and flat on admit which could be related to his HF. EKG did not show ischemic changes. Continue Atorvastatin, carvedilol. He is not on aspirin as he is usually on xarelto. (4) Afib: Status: Acute Assessment and Plan: hx of PAF. EKG on admit showed afib RVR. He does not feel the palpitations. Jos ated with rate control. Now on Carvedilol and tele shows afib rates average in 90s. His Xarelto is on hold, with last dose reported to be 01/22. Now on heparin drip for anticoagulation. Plan to resume Xarelto post cath when appropriate. CHADSVASc score 6. Continue to pursue rate control at present. In future, may need to pursue rhythm control. (5) Hx of CABG: Status: Acute Time Spent With Patient Time: Total time spent is greater than 50% in coordination of care (as documented) at patient's floor/unit and/or counseling patient: 30 Progress Note: Quality Stroke Does the patient have a stroke diagnosis?: No Procedures Date of Service Date of Service: 01/24/22
[2022-01-24 15:27] VITALS: BP 121/62; PULSE 95; RESP 18; TEMP 36.4; O2SAT 97
[2022-01-24 16:24] LABS: Glucose, Whole Blood 262 mg/dL (60-115)
--- NOTE | 2022-01-24 17:27 | P.PNIM_ITS ---
Subjective Subjective Date of Service: 01/24/22 Interval History: Follow up CHF Breathing has improved though, but still sob with exertion No chest pain Review of Systems Review of Systems: Yes all other systems are reviewed and are negative Physical Exam Vital Signs: Vital Signs: Last Vital Signs Temp 97.5 F 01/24/22 15:27 Pulse 95 01/24/22 15:27 Resp 18 01/24/22 15:27 BP 121/62 01/24/22 15:27 Pulse Ox 97 01/24/22 15:27 O2 Del Method 01/24/22 15:27 O2 Flow Rate 2 01/24/22 15:27 FiO2 95 01/22/22 15:47 BMI result Body Mass Index 23.8 Appearing in no acute distress lung sounds are clear to auscultation heart regular rate rhythm, clear S1, S2 positive bowel sounds, abdomen is soft, nontender neuro patient is alert x3, no focal deficits Objective Data Active Medications Acetaminophen (Acetaminophen 325 Mg Tablet) 650 mg PO Q6H PRN PRN Reason: Pain, Mild (Pain Scale 1-3) Last Admin: 01/18/22 21:15 Dose: 650 mg Documented By: MARY Acetazolamide (Acetazolamide 250 Mg Tablet) 500 mg PO BID [facility] Last Admin: 01/24/22 09:25 Dose: 500 mg Documented By: ELI Atorvastatin Calcium (Atorvastatin Calcium 80 Mg Tablet) 80 mg PO DAILY [facility] Last Admin: 01/24/22 09:26 Dose: 80 mg Documented By: ELI Atropine Sulfate (Atropine Sulfate 1 % Ophth Patricia 2 Ml Bottle) 1 drop EYE-RIGHT BID [facility] Last Admin: 01/24/22 09:25 Dose: 1 drop Documented By: ELI Brimonidine Tartrate (Brimonidine Tartrate 0.2% Oph 5 Ml Bottle) 1 drop EYE- RIGHT BID [facility] Last Admin: 01/24/22 09:24 Dose: 1 drop Documented By: ELI Carvedilol (Carvedilol 6.25 Mg Tablet) 6.25 mg PO BID [facility]; Protocol Last Admin: 01/24/22 09:25 Dose: 6.25 mg Documented By: ELI Cyanocobalamin (Cyanocobalamin (Vitamin B-12) 1,000 Mcg Tablet) 1,000 mcg PO DAILY [facility] Last Admin: 01/24/22 09:26 Dose: 1,000 mcg Documented By: ELI Dextrose (Dextrose 50 % 25 Gm/50 Ml Syringe) 25 gm IVPUSH Q15M PRN; Protocol PRN Reason: per Hypoglycemia Standing Ord. Docusate Sodium (Docusate Sodium 100 Mg Capsule) 100 mg PO BID PRN PRN Reason: constipation Dorzolamide/Timolol (Dorzolamide/Timolo 2.23%/0.68% 10 Ml Drbtl) 1 drop EYE-RIGHT BID [facility] Last Admin: 01/24/22 09:25 Dose: 1 drop Documented By: ELI Empagliflozin (Empagliflozin 10 Mg Tablet) 10 mg PO DAILY [facility] Last Admin: 01/24/22 09:26 Dose: 10 mg Documented By: ELI Famotidine (Famotidine 20 Mg Tablet) 20 mg PO BID [facility] Last Admin: 01/24/22 09:25 Dose: 20 mg Documented By: ELI Ferrous Sulfate (Ferrous Sulfate 324 Mg Tablet.Dr) 324 mg PO DAILY [facility] Last Admin: 01/24/22 09:26 Dose: 324 mg Documented By: ELI Furosemide (Furosemide 20 Mg/2 Ml Vial) 40 mg IVPUSH DAILY [facility]; Protocol Last Admin: 01/24/22 09:25 Dose: 40 mg Documented By: ELI Gabapentin (Gabapentin 100 Mg Capsule) 100 mg PO BEDTIME [facility] Last Admin: 01/23/22 20:22 Dose: 100 mg Documented By: JALEEL Glucose (Glucose Gel 15 Gm Gel..Gram.) 15 gm PO Q15M PRN; Protocol PRN Reason: per Hypoglycemia Standing Ord. Heparin Sodium (Porcine) (Heparin Sodium,Porcine 5,000 Unit/Ml Vial) 2,700 unit 40 unit/kg (2700 unit) IVPUSH PROTOCOL BOLUS PRN PRN Reason: 40 unit/kg - Heparin Protocol Heparin Sodium (Porcine) (Heparin Sodium,Porcine 5,000 Unit/Ml Vial) 5,400 unit 80 unit/kg (5400 unit) IVPUSH PROTOCOL BOLUS PRN PRN Reason: 80 unit/kg - Heparin Protocol Heparin Sodium/Sodium Chloride (Heparin Sodium,Porcine/1/2ns) 25,000 unit in 250 mls @ 0 mls/hr IVCONT .Q0M JOEY; Protocol Last Admin: 01/24/22 07:46 Dose: 14 units/kg/hr, 9.38 mls/hr Documented By: ELI Co-signed By: KEILA Insulin Glargine (Insulin Glargine,Hum.Rec.Anlog 100 Unit/Ml 10 Ml Vial) 14 unit SUBCUT BEDTIME [facility] Last Admin: 01/23/22 20:23 Dose: 14 unit Documented By: JALEEL Insulin Human Lispro (Insulin Lispro 100 Unit/Ml 3 Ml Vial) 0 unit SUBCUT QIDACHS [facility]; Protocol Last Admin: 01/24/22 16:44 Dose: 6 unit Documented By: ELI Latanoprost (Latanoprost 0.005 % Ophth Patricia 2.5 Ml Drops) 1 drop EYE-RIGHT DAILY@2200 [facility] Last Admin: 01/23/22 22:28 Dose: 1 drop Documented By: JALEEL Oxycodone HCl (Oxycodone Hcl Immed Release 5 Mg Tablet) 5 mg PO Q4H PRN PRN Reason: Pain, Mild (Pain Scale 1-3) Last Admin: 01/21/22 12:23 Dose: 5 mg Documented By: MANDY Pharmacy Consult (Consult Rx Perform Med Rec) 1 each MISCELLANE ONCE PRN PRN Reason: Consult order Senna (Sennosides 8.6 Mg Tablet) 17.2 mg PO BEDTIME PRN PRN Reason: Constipation Sertraline HCl (Sertraline Hcl 50 Mg Tablet) 50 mg PO DAILY [facility] Last Admin: 01/24/22 09:26 Dose: 50 mg Documented By: ELI Sodium Chloride (0.9 % Sodium Chloride Flush 3 Ml Syringe) 3 ml IVFLUSH QSHIFT [facility] Last Admin: 01/24/22 16:44 Dose: 3 ml Documented By: ELI Valsartan (Valsartan 40 Mg Tablet) 20 mg PO BID [facility]; Protocol Last Admin: 01/24/22 09:25 Dose: 20 mg Documented By: ELI Labs CBC & Chem 7: 01/23/22 06:28 01/23/22 06:28 Labs: Laboratory Results - last 24 hr 01/23/22 01/23/22 01/24/22 18:36 18:51 00:53 aPTT Heparin Protocol 57.9 D 61.0 POC Glucose 207 H 01/24/22 01/24/22 01/24/22 06:00 07:22 11:04 aPTT Heparin Protocol 67.2 POC Glucose 140 H 181 H 01/24/22 16:02 aPTT Heparin Protocol POC Glucose 262 H Microbiology Microbiology Results: Microbiology 01/18/22 11:42 Blood Culture - Final Blood - Venous No growth after 5 days. Assessment and Plan (1) Ischemic cardiomyopathy: Status: Acute (2) Heart failure, systolic, with acute decompensation: Status: Acute Plan 81yo M with CAD s/p 4v CABG (2008), HTN, HLD, hx CVA x2, AF on rivaroxaban, and DM2 on insulin presenting with worsening exertional dyspnea, orthopnea, and leg edema and found to be hypoxic and volume overloaded, and in AF/RVR. His prior agency sales management assistant, Dr Jay, moved away and he does not yet have a new agency sales management assistant. He also developed a hyphema in his R eye 1 week prior to admis mary ellen and did not seek ophthalmologic care. Acute heart failure with reduced ejection fraction Secondary to AFib versus ischemia, needs ischemic workup Discussed with Cardiology stop rivaroxaban and start IV heparin, transfer to [facility] on Monday for cardiac catheterization Treated with Lasix drip, switched to oral Increase Coreg to 6.25 mg b.i.d., Lasix 40 mg daily Strict intake and output Paroxysmal atrial fibrillation with rapid ventricular response Initially treated with diltiazem drip subsequently stopped Continue carvedilol On rivaroxaban last dose tonight, IV heparin started today Cardiology following Acute hypoxic respiratory failure secondary to CHF. Resolved Oxygen titrated down Weakness Physical therapy evaluation per family request Hypertension Continue carvedilol and valsartan History of coronary artery disease status post 4 vessel CABG Continue statin R eye hyphema and cornela abrasion delayed presentation timolol + latanoprost drops, erythromycin ointment, outpt f/u with Dr Burdick DM2, A1c 10 (11/01/21) continue basal insulin; hold OHGs; give correction-dose prandial insulin; add empagliflozin as above VTE prophylaxis: rivaroxaban switch to IV heparin 01/23/[address] mckeon Full code DISPO plan to tx to [facility] In my clinical judgment, the patient requires continued hospitalization for treatment of acute congestive heart failure and plan to transfer to tertiary facility Quality Stroke Does the patient have a stroke diagnosis?: No VTE Prior VTE?: No VTE Risk Level:: Medical - moderate - high VTE Device Contraindication: Procedure Contraindicated VTE Drug Contraindication: N/A - Med Ordered
== END 2022-01-24 20:00 | disposition short-term general hospital (02) | DRG 291 ==
LOC: HO.ED 10:40 → HO.EDOVER 13:39 → HO.IMC 01-19 09:27 → HO.ICU 01-19 13:28 → HO.IMC 01-21 14:40
PROVIDERS: Anesthesiology; Physician Assistant Medical; Admitting Provider Family Medicine; Emergency Provider Emergency Medicine; PCP Internal Medicine; Visit Provider Nurse Practitioner Acute Care
DX: I11.0 Hypertensive heart disease with heart failure (principal); I50.23 Acute on chronic systolic (congestive) heart failure; J96.01 Acute respiratory failure with hypoxia; E87.3 Alkalosis; I48.0 Paroxysmal atrial fibrillation; I42.0 Dilated cardiomyopathy; I25.10 Atherosclerotic heart disease of native coronary artery without angina pectoris; H21.01 Hyphema, right eye; I95.9 Hypotension, unspecified; I08.3 Combined rheumatic disorders of mitral, aortic and tricuspid valves; S05.01XA Injury of conjunctiva and corneal abrasion without foreign body, right eye, initial encounter; E11.9 Type 2 diabetes mellitus without complications; X58.XXXA Exposure to other specified factors, initial encounter; G89.29 Other chronic pain; Z20.822 Contact with and (suspected) exposure to COVID-19; Z95.1 Presence of aortocoronary bypass graft; Z86.73 Personal history of transient ischemic attack (TIA), and cerebral infarction without residual deficits; Z87.891 Personal history of nicotine dependence; Z79.01 Long term (current) use of anticoagulants; Z79.82 Long term (current) use of aspirin; Z79.84 Long term (current) use of oral hypoglycemic drugs; Z79.899 Other long term (current) drug therapy
CPT/HCPCS: 36415; 70450; 71045; 73522; 80048; 80053; 80076; 80162; 81001; 81003; 82803; 82947; 83605; 83735; 83880; 84100; 84145; 84484; 85025; 85027; 85610; 85730; 87040; 87635; 92523; 93005; 93306; 93970; 94640; 96365; 96375; 97163; 99285; C1758; J1160; J1250; J1940; J2270; J2405; J3475; P9047; Q9957

== ENCOUNTER → 2022-02-10 13:45 | Outpatient (BNVA) | payer MEDICARE, MEDICAID, SELFPAY | PROVIDERS: PCP Internal Medicine; Referring Provider Internal Medicine; Visit Provider Internal Medicine Cardiovascular Disease | DX: I50.20 Unspecified systolic (congestive) heart failure (principal); I48.0 Paroxysmal atrial fibrillation; I25.10 Atherosclerotic heart disease of native coronary artery without angina pectoris; I25.5 Ischemic cardiomyopathy | CPT/HCPCS: 93005; 99212 ==

== ENCOUNTER 2022-02-11 09:28 | Outpatient (REF) | payer MEDICARE, MEDICAID, SELFPAY ==
[2022-02-11 10:31] LABS: MANUAL DIFF FLAG NO
[2022-02-11 10:36] LABS: Basophils Absolute Auto 0.1 X10*3/uL (0.0-0.2); Basophils Percent Auto 0.5 % (0-2); Eosinophils Absolute Auto 1.1 X10*3/uL (0.0-0.4); Eosinophils Percent Auto 10.9 % (0-4); Hematocrit 33.4 % (42.0-52.0); Hemoglobin 10.5 g/dl (14.0-18.0); Imm Gran Abs Auto 0.05 X10*3/uL (0.00-0.03); Imm Gran Pct Auto 0.5 % (0.0-0.4); Lymphocytes Absolute Auto 0.9 X10*3/uL (1.2-4.9); Lymphocytes Percent Auto 9.5 % (20-40); Mean Corpuscular HGB Conc 31.4 g/dl (31.0-36.0); Mean Corpuscular Hemoglobin 29.7 pg (27.0-33.0); Mean Corpuscular Volume 94.6 fL (80.0-98.0); Mean Platelet Volume 9.3 fL (9.4-12.4); Monocytes Absolute Auto 0.9 X10*3/uL (0.1-1.2); Monocytes Percent Auto 9.4 % (2-11); Neutrophils Absolute Auto 6.8 x10*3/uL (2.0-8.3); Neutrophils Percent Auto 69.2 % (45-73); Platelet Count 319 X10*3/uL (160-400); Red Blood Count 3.53 X10*6/uL (4.60-5.80); Red Cell Distribution Width 17.2 % (11.0-16.0); White Blood Count 9.8 X10*3/uL (4.8-10.8)
[2022-02-11 10:43] LABS: Estimated Average Glucose 183 mg/dL
[2022-02-11 11:03] LABS: Alanine Aminotransferase 62 U/L (0-40); Albumin Level 3.9 g/dL (3.5-5.0); Alkaline Phosphatase 132 U/L (39-117); Anion Gap 14 (12-20); Aspartate Amino Transferase 37 U/L (5-37); Bilirubin Total 0.5 mg/dL (0.0-1.0); Blood Urea Nitrogen 34 mg/dL (9-16); Calcium 9.6 mg/dL (8.4-10.2); Carbon Dioxide 30 mmol/L (22-29); Chloride 100 mmol/L (96-108); Estimated Glomerular Filt Rate 57; Glucose Fasting 169 mg/dL (60-99); Iron 72 mcg/dL (45-160); Percent Iron Saturation 26 % (15-50); Potassium 4.4 mmol/L (3.3-5.1); Sodium 140 mmol/L (135-145); Total Iron Binding Capacity 278 mcg/dL (228-428); Total Protein 7.6 g/dL (6.5-8.0); Unsaturated Iron Binding 206 ug/dL
[2022-02-11 11:10] LABS: B Type Natriuretic Peptide 404 pg/mL (<100)
[2022-02-11 11:22] LABS: Free T4 (Free Thyroxine) 1.16 ng/dL (0.71-1.85); Thyroid Stimulating Hormone 2.69 uIU/mL (0.32-4.0)
== END 2022-02-11 09:29 | disposition home or self-care (01) ==
LOC: HO.10HDL 09:28
PROVIDERS: Absent Provider Internal Medicine; Visit Provider Internal Medicine Cardiovascular Disease
DX: I48.0 Paroxysmal atrial fibrillation (principal); I42.9 Cardiomyopathy, unspecified; D64.9 Anemia, unspecified; N18.9 Chronic kidney disease, unspecified; E11.9 Type 2 diabetes mellitus without complications; R60.0 Localized edema
CPT/HCPCS: 36415; 80053; 83036; 83540; 83880; 84439; 84443; 85025

== ENCOUNTER → 2022-03-02 12:52 | Outpatient (REF) | payer MEDICARE, MEDICAID, SELFPAY ==
--- NOTE | 2022-03-02 12:54 | CA_ITS ---
Transthoracic Echocardiogram Patient (Last, First, Middle): Donnie Clayton, Gender: Male Date of : 1940 Age: 81 Procedure Date: 03/02/2022 Procedure Type: Transthoracic Echocardiogram Location: OP Height: 167.64 cm Weight: 67.13 kg BSA: 1.76 m2 Heart Rate: 68 bpm BP: 110 / 68 mmHg Ecological Risk Assessor: SHARI Referring MD: Cristino Pugh MD Schedule Supervisor: Cristino Pugh MD Symptoms: I42.9 - Cardiomyopathy, unspecified Study Quality: Adequate ECG Rhythm: Sinus Conclusions: - Severely reduced LV systolic function with LVEF of 25-30% with regional wall motion abnormality suggestive of underlying coronary artery disease Findings Left Ventricle Normal left ventricular cavity size. There is normal left ventricular wall thickness. The left ventricular systolic function is severely decreased. The visually estimated ejection fraction is between 25-30%. Peak GLS is 9.1%, which is severely reduced Wall Motion Rest Echo Findings The mid inferior, apical septum, and mid inferoseptal segments are hypokinetic. The basal inferior and basal inferoseptal segments are akinetic. Prior Study Comparison Changes noted compared to prior study. LV systolic function of 25-30% Measurements 2D Linear Measurements IVSd: 1.02 0.6-0.9/0.6-1.0 cm LVIDd: 5.53 3.9-5.3/4.2-5.9 cm LVIDd Index: 3.14 2.4-3.2/2.2-3.1 cm/m2 LVIDs: 5.04 2.0-3.6 cm LVPWd: 1.04 0.7-1.1 cm LV Mass: 278.86 67-162/88-224 g LV Mass Index: 158.44 43-95/49-115 g/m2 2D Systolic Function EF 4C: 37.80 >55% EF 2C: 20.40 >55% EF BiP: 30.00 >55% Updated in Other Vendor System with Status of Final Cristino Pugh MD electronically signed on 03/03/2022 11:18:18 AM with status of Final
== END ==
LOC: HO.CARD 12:52
PROVIDERS: PCP Internal Medicine; Visit Provider Internal Medicine Cardiovascular Disease
DX: I42.9 Cardiomyopathy, unspecified (principal); I50.20 Unspecified systolic (congestive) heart failure
CPT/HCPCS: 93308; 93356

== ENCOUNTER 2022-03-14 10:37 | Outpatient (REF) | payer MEDICARE, MEDICAID, SELFPAY ==
[2022-03-14 13:31] LABS: MANUAL DIFF FLAG NO
[2022-03-14 13:35] LABS: Basophils Percent Auto 0.4 % (0-2); Eosinophils Absolute Auto 0.3 X10*3/uL (0.0-0.4); Eosinophils Percent Auto 3.1 % (0-4); Hematocrit 32.3 % (42.0-52.0); Hemoglobin 10.2 g/dl (14.0-18.0); Imm Gran Abs Auto 0.07 X10*3/uL (0.00-0.03); Imm Gran Pct Auto 0.6 % (0.0-0.4); Lymphocytes Absolute Auto 0.7 X10*3/uL (1.2-4.9); Lymphocytes Percent Auto 6.3 % (20-40); Mean Corpuscular HGB Conc 31.6 g/dl (31.0-36.0); Mean Corpuscular Hemoglobin 30.4 pg (27.0-33.0); Mean Corpuscular Volume 96.1 fL (80.0-98.0); Monocytes Absolute Auto 1.3 X10*3/uL (0.1-1.2); Monocytes Percent Auto 11.7 % (2-11); Neutrophils Absolute Auto 8.6 x10*3/uL (2.0-8.3); Neutrophils Percent Auto 77.9 % (45-73); Platelet Count 275 X10*3/uL (160-400); Red Blood Count 3.36 X10*6/uL (4.60-5.80); Red Cell Distribution Width 16.5 % (11.0-16.0)
[2022-03-14 13:49] LABS: Anion Gap 17 (12-20); Blood Urea Nitrogen 34 mg/dL (9-16); Calcium 9.2 mg/dL (8.4-10.2); Carbon Dioxide 30 mmol/L (22-29); Chloride 96 mmol/L (96-108); Estimated Glomerular Filt Rate 48; Glucose Random 138 mg/dL (60-115); Potassium 4.7 mmol/L (3.3-5.1); Sodium 138 mmol/L (135-145)
== END 2022-03-14 10:38 | disposition home or self-care (01) ==
LOC: HO.10HDL 10:37
PROVIDERS: Visit Provider Internal Medicine
DX: E11.9 Type 2 diabetes mellitus without complications (principal); I48.0 Paroxysmal atrial fibrillation; N18.9 Chronic kidney disease, unspecified; D64.9 Anemia, unspecified
CPT/HCPCS: 36415; 80048; 85025

== ENCOUNTER → 2022-03-16 10:51 | Outpatient (BNVA) | payer MEDICARE, MEDICAID, SELFPAY | PROVIDERS: PCP Internal Medicine; Referring Provider Internal Medicine; Visit Provider Internal Medicine Cardiovascular Disease | DX: I50.20 Unspecified systolic (congestive) heart failure (principal); I25.10 Atherosclerotic heart disease of native coronary artery without angina pectoris; I48.0 Paroxysmal atrial fibrillation; I25.5 Ischemic cardiomyopathy | CPT/HCPCS: 93005; 99212 ==

== ENCOUNTER 2022-03-21 12:10 | Outpatient (REF) | payer MEDICARE, MEDICAID, SELFPAY ==
[2022-03-21 15:23] LABS: Alanine Aminotransferase 101 U/L (0-40); Albumin Level 3.6 g/dL (3.5-5.0); Alkaline Phosphatase 139 U/L (39-117); Anion Gap 13 (12-20); Aspartate Amino Transferase 46 U/L (5-37); Bilirubin Total 0.5 mg/dL (0.0-1.0); Blood Urea Nitrogen 22 mg/dL (9-16); Calcium 9.3 mg/dL (8.4-10.2); Carbon Dioxide 33 mmol/L (22-29); Chloride 99 mmol/L (96-108); Estimated Glomerular Filt Rate 59; Glucose Random 237 mg/dL (60-115); Potassium 4.7 mmol/L (3.3-5.1); Sodium 140 mmol/L (135-145); Total Protein 7.2 g/dL (6.5-8.0)
== END 2022-03-21 12:11 | disposition home or self-care (01) ==
LOC: HO.10HDL 12:10
PROVIDERS: PCP Internal Medicine; Visit Provider Internal Medicine Cardiovascular Disease
DX: R60.9 Edema, unspecified (principal); R79.89 Other specified abnormal findings of blood chemistry; N18.9 Chronic kidney disease, unspecified; I50.20 Unspecified systolic (congestive) heart failure
CPT/HCPCS: 36415; 80053

== ENCOUNTER 2022-05-18 09:04 | Outpatient (REF) | payer MEDICARE, MEDICAID, SELFPAY ==
[2022-05-18 11:20] LABS: MANUAL DIFF FLAG NO
[2022-05-18 11:26] LABS: Basophils Absolute Auto 0.1 X10*3/uL (0.0-0.2); Basophils Percent Auto 0.5 % (0-2); Eosinophils Absolute Auto 0.6 X10*3/uL (0.0-0.4); Eosinophils Percent Auto 5.3 % (0-4); Hematocrit 35.8 % (42.0-52.0); Hemoglobin 11.5 g/dl (14.0-18.0); Imm Gran Abs Auto 0.06 X10*3/uL (0.00-0.03); Imm Gran Pct Auto 0.6 % (0.0-0.4); Lymphocytes Absolute Auto 1.5 X10*3/uL (1.2-4.9); Lymphocytes Percent Auto 13.8 % (20-40); Mean Corpuscular HGB Conc 32.1 g/dl (31.0-36.0); Mean Corpuscular Hemoglobin 31.9 pg (27.0-33.0); Mean Corpuscular Volume 99.2 fL (80.0-98.0); Monocytes Absolute Auto 1.1 X10*3/uL (0.1-1.2); Monocytes Percent Auto 10.4 % (2-11); Neutrophils Absolute Auto 7.4 x10*3/uL (2.0-8.3); Neutrophils Percent Auto 69.4 % (45-73); Platelet Count 325 X10*3/uL (160-400); Red Blood Count 3.61 X10*6/uL (4.60-5.80); Red Cell Distribution Width 14.5 % (11.0-16.0); White Blood Count 10.6 X10*3/uL (4.8-10.8)
[2022-05-18 12:01] LABS: Alanine Aminotransferase 34 U/L (0-40); Albumin Level 3.9 g/dL (3.5-5.0); Alkaline Phosphatase 137 U/L (39-117); Anion Gap 15 (12-20); Aspartate Amino Transferase 25 U/L (5-37); Bilirubin Total 0.9 mg/dL (0.0-1.0); Blood Urea Nitrogen 24 mg/dL (9-16); Calcium 9.7 mg/dL (8.4-10.2); Carbon Dioxide 30 mmol/L (22-29); Chloride 100 mmol/L (96-108); Cholesterol 153 mg/dL; Estimated Glomerular Filt Rate 48; Glucose Fasting 72 mg/dL (60-99); HDL Cholesterol 34 mg/dL; LDL Cholesterol Calculated 99 mg/dl; Potassium 4.2 mmol/L (3.3-5.1); Sodium 141 mmol/L (135-145); Total Protein 7.9 g/dL (6.5-8.0); Triglycerides 104 mg/dL
[2022-05-18 12:11] LABS: Prostate Specific Antigen Scr 0.67 ng/mL (<0.05-4.0); Thyroid Stimulating Hormone 10.33 uIU/mL (0.32-4.0)
[2022-05-18 13:37] LABS: Appearance Urine Clear; Color Urine Yellow; Glucose Urine UA Negative (Negative); Leukocyte Esterase Urine Negative (Negative); Nitrite Urine Negative (Negative); PH 6.5 (5.0-9.0); Specific Gravity - Urine 1.015 (1.005-1.025); Urine Blood Negative (Negative); Urine Ketones Negative (Negative); Urine Protein Negative (Neg-Trace)
[2022-05-18 13:58] LABS: Estimated Average Glucose 151 mg/dL; Hemoglobin A1c % 6.9 %
[2022-05-18 14:53] LABS: Creatinine Urine 112.36 mg/dL; Microalbum/Creatinine Ratio Ur 44.4 ug/mg cr
== END 2022-05-18 09:05 | disposition home or self-care (01) ==
LOC: HO.10HDL 09:04
PROVIDERS: Visit Provider Internal Medicine
DX: Z00.00 Encounter for general adult medical examination without abnormal findings (principal); Z12.5 Encounter for screening for malignant neoplasm of prostate; I48.0 Paroxysmal atrial fibrillation; D64.9 Anemia, unspecified; I13.0 Hypertensive heart and chronic kidney disease with heart failure and stage 1 through stage 4 chronic kidney disease, or unspecified chronic kidney disease; E11.22 Type 2 diabetes mellitus with diabetic chronic kidney disease; N18.9 Chronic kidney disease, unspecified; I50.20 Unspecified systolic (congestive) heart failure; I25.10 Atherosclerotic heart disease of native coronary artery without angina pectoris
CPT/HCPCS: 36415; 80053; 80061; 81003; 82043; 83036; 84153; 84443; 85025; 93005; 99212

== ENCOUNTER 2022-07-13 10:50 | Outpatient (REF) | payer MEDICARE, MEDICAID, SELFPAY ==
[2022-07-13 13:43] LABS: MANUAL DIFF FLAG NO
[2022-07-13 13:48] LABS: Basophils Absolute Auto 0.1 X10*3/uL (0.0-0.2); Basophils Percent Auto 0.5 % (0-2); Eosinophils Absolute Auto 0.5 X10*3/uL (0.0-0.4); Eosinophils Percent Auto 4.9 % (0-4); Hematocrit 35.6 % (42.0-52.0); Hemoglobin 11.5 g/dl (14.0-18.0); Imm Gran Abs Auto 0.05 X10*3/uL (0.00-0.03); Imm Gran Pct Auto 0.5 % (0.0-0.4); Mean Corpuscular HGB Conc 32.3 g/dl (31.0-36.0); Mean Corpuscular Hemoglobin 31.3 pg (27.0-33.0); Mean Corpuscular Volume 96.7 fL (80.0-98.0); Monocytes Absolute Auto 0.8 X10*3/uL (0.1-1.2); Monocytes Percent Auto 8.2 % (2-11); Neutrophils Absolute Auto 7.4 x10*3/uL (2.0-8.3); Neutrophils Percent Auto 75.9 % (45-73); Platelet Count 227 X10*3/uL (160-400); Red Blood Count 3.68 X10*6/uL (4.60-5.80); Red Cell Distribution Width 13.5 % (11.0-16.0); White Blood Count 9.8 X10*3/uL (4.8-10.8)
[2022-07-13 14:01] LABS: Estimated Average Glucose 163 mg/dL; Hemoglobin A1c % 7.3 %
[2022-07-13 14:20] LABS: Alanine Aminotransferase 60 U/L (0-40); Albumin Level 3.7 g/dL (3.5-5.0); Alkaline Phosphatase 125 U/L (39-117); Anion Gap 14 (12-20); Aspartate Amino Transferase 40 U/L (5-37); Bilirubin Total 0.6 mg/dL (0.0-1.0); Blood Urea Nitrogen 27 mg/dL (9-16); Calcium 8.9 mg/dL (8.4-10.2); Carbon Dioxide 27 mmol/L (22-29); Chloride 101 mmol/L (96-108); Estimated Glomerular Filt Rate 41; Glucose Random 315 mg/dL (60-115); Potassium 4.1 mmol/L (3.3-5.1); Sodium 138 mmol/L (135-145); Total Protein 7.1 g/dL (6.5-8.0)
[2022-07-13 14:40] LABS: Free T4 (Free Thyroxine) 0.98 ng/dL (0.71-1.85); Thyroid Stimulating Hormone 5.61 uIU/mL (0.32-4.0)
== END 2022-07-13 10:51 | disposition home or self-care (01) ==
LOC: HO.10HDL 10:50
PROVIDERS: Visit Provider Internal Medicine
DX: E11.22 Type 2 diabetes mellitus with diabetic chronic kidney disease (principal); N18.9 Chronic kidney disease, unspecified; E03.9 Hypothyroidism, unspecified
CPT/HCPCS: 36415; 80053; 83036; 84439; 84443; 85025

== ENCOUNTER 2022-10-23 06:52 | Emergency (ER) | payer MEDICARE, MEDICAID, SELFPAY ==
--- NOTE | ~2022-10-23 | XR_ITS ---
EXAMINATION: XR SHOULDER, LEFT CLINICAL INFORMATION: Decreased range of motion, pain. COMPARISON: None available. TECHNIQUE: Three views of the left shoulder. FINDINGS: Severe glenohumeral joint space narrowing. Inferomedial humeral head osteophyte. There is transversely oriented band of sclerosis projected over the humeral neck. This could be related to sequela of age-indeterminate trauma versus osteophytes projected over the femoral neck. Anatomic alignment of the glenohumeral joint. No displacement. Mild-moderate acromioclavicular arthritis. No abnormal soft tissue calcification. XR/XR shoulder LT min 2V IMPRESSION: Severe glenohumeral joint arthritis. There is transversely oriented band of sclerosis from arthritis versus sequela of fracture, of indeterminate age. Clinically correlate. Mild-moderate acromioclavicular arthritis.
[2022-10-23 06:55] VITALS: BP 132/59; PULSE 70; RESP 18; TEMP 36.6; O2SAT 94; BMI 26.3
--- NOTE | 2022-10-23 08:11 | ED.FALL ---
HPI - Fall General Chief Complaint: Fall Stated Complaint: fall Time Seen by Provider: 10/23/22 07:46 Source: patient and family (Daughter) Mode of arrival: ambulatory History of Present Illness HPI Narrative: 82-year-old male, on anticoagulation, fell 2 days ago and has complaints regarding left shoulder pain. He reports limited range of motion due to the discomfort and has underlying diabetes. Related Data Home Medications Medication Instructions Recorded Confirmed ferrous sulfate 324 mg (65 mg 324 mg PO DAILY 01/18/22 05/18/22 iron) tablet,delayed release insulin detemir U-100 100 unit/mL 20 unit subcut BEDTIME 01/18/22 05/18/22 (3 mL) subcutaneous pen (Levemir FlexTouch U-100 Insulin) rivaroxaban 20 mg tablet (Xarelto) 1 tab PO DAILY 01/18/22 05/18/22 naproxen sodium 220 mg tablet 440 mg PO DAILY 01/20/22 05/18/22 atorvastatin 80 mg tablet 80 mg PO DAILY 02/10/22 05/18/22 glipizide 10 mg tablet, extended 10 mg PO BID 02/10/22 05/18/22 release 24 hr lisinopril 10 mg tablet 10 mg PO DAILY 02/10/22 05/18/22 metformin 1,000 mg tablet 1,000 mg PO DAILY 02/10/22 05/18/22 sertraline 50 mg tablet 50 mg PO DAILY 02/10/22 05/18/22 furosemide 40 mg tablet 40 mg PO DAILY 03/16/22 05/18/22 Previous Rx's Medication Instructions Recorded carvedilol 6.25 mg tablet 6.25 mg PO BID #60 tabs 01/24/22 amiodarone 200 mg tablet 200 mg PO DAILY #30 tabs 06/21/22 Allergies Allergy/AdvReac Type Severity Reaction Status Date / Time No Known Allergies Allergy Verified 10/23/22 06:55 Review of Systems Review of Systems: Pertinent positives and negatives as stated in HPI [facility] Past Medical History Source: nursing notes reviewed Medical History Abrasion, corneal Afib CAD (coronary artery disease) CHF (congestive heart failure) CHF (congestive heart failure) COPD (chronic obstructive pulmonary disease) Diabetes Heart failure, systolic, with acute decompensation History of amputation of great toe History of CVA (cerebrovascular accident) HTN (hypertension) Hyphema Ischemic cardiomyopathy Surgical History Hx of CABG Family History Family History Other Diabetes Social History Social History Household Members: Spouse Housing: House Do you presently have visiting nurse or other home services: No Patient Tobacco Use Status: Former Tobacco user Advance Directives: Yes Advance Directives on File: No Physical Exam Vital Signs: Vital Signs: Last Vital Signs Temp 98 F 10/23/22 06:55 Pulse 70 10/23/22 06:55 Resp 18 10/23/22 06:55 BP 132/59 L 10/23/22 06:55 Pulse Ox 94 10/23/22 06:55 O2 Del Method Room Air 10/23/22 06:55 BMI result Body Mass Index 26.3 VITAL SIGNS: Reviewed. GENERAL: Well developed, well nourished, in no acute distress. HEAD: Normocephalic/atraumatic EYES: PERRLA, EOMI in left eye only, blind in the right eye EARS: Ext canals without abnormality NOSE: Nares patent bilateral OROPHARYNX: no oral lesions noted, posterior pharynx clear NECK: Supple, no adenopathy LUNGS: Normal breath sounds. No adventitious sounds or accessory muscle use. SpO2<94> CARDIOVASCULAR: Regular rate and rhythm without noted murmurs, no JVD or lower extremity edema. ABDOMEN: Soft, non-tender, non-distended with bowel sounds. MUSCULOSKELETAL: No tenderness, deformities, or effusions noted on gross inspection. EXTREMITIES: No cyanosis, clubbing or edema; LEFT SHOULDER: No obvious deformity/warmth/erythema/induration, somewhat limited range of motion LEFT ELBOW: There are very minor skin tears to the radial aspect of the elbow that are hemostatic. SKIN: Inspection of the skin reveals no rashes NEUROLOGIC: Alert and oriented x 4. Strength and sensation to light touch were grossly intact x 4. Medical Decision Making Medical Decision Making MDM Narrative: 82-year-old male with history and clinical presentation of fall on to left elbow and shoulder without focal deficit, my interpretation of the imaging study is in agreement with radiology's impression the absence of fracture or dislocation. I removed the dressing on the left elbow and instructed patient to cleanse with soap and water with application of antibiotic ointment. The daughter at the bedside asked about a sling for patient's left shoulder and I counseled her and the patient regarding increasing stiffness if his movement is limited. Patient is right-hand dominant was instructed to use caution when lifting any objects. Differential Diagnosis Please see the discussion above Radiology Impression Radiologist Impression: My interpretation is in agreement with radiology's impression. Discharge Plan Discharge Clinical Impression: Fall, Skin tear of upper extremity Patient Disposition: Home, Self-Care Instructions: Fall Prevention for Older Adults (ED), Skin Tear (ED), Shoulder Pain (ED) Additional Instructions: 1. Resume all home medications and use Tylenol for pain control. 2. Follow-up with your primary care provider and if pain persists discuss the possibility of physical therapy and/or repeat imaging study. Return to the ER for any worsening symptoms. Prescriptions: No Action amiodarone 200 mg tablet 200 mg PO DAILY Qty: 30 2RF Levemir FlexTouch U100 Insulin 100 unit/mL (3 mL) insulin pen 20 unit subcut BEDTIME Xarelto 20 mg tablet 1 tab PO DAILY Hold Instructions: Resume on 01/29/22. Resume post cardiac catheterization ferrous sulfate 324 mg (65 mg iron) Tablet,Delayed Release (Dr/Ec) 324 mg PO DAILY naproxen sodium 220 mg Tablet 440 mg PO DAILY carvedilol 6.25 mg Tablet 6.25 mg PO BID Qty: 60 0RF Protocol: Hold for SBP/HR < HOLD for SBP < : 90 HOLD for HR < : 60 atorvastatin 80 mg tablet 80 mg PO DAILY glipizide 10 mg tablet extended release 24hr 10 mg PO BID lisinopril 10 mg tablet 10 mg PO DAILY metformin 1,000 mg tablet 1,000 mg PO DAILY sertraline 50 mg tablet 50 mg PO DAILY furosemide 40 mg tablet 40 mg PO DAILY Rx Instructions: extra 20 mg tid Referrals: Heladio Aparicio MD [Primary Care Provider] -
--- NOTE | 2022-10-23 08:26 | PC.NURSE ---
pt seen by Dr. Rose and is now cleared for discharge. discharge instructions reviewed with pt and the female at his bedside. pt assisted to w/c, wheeled out by female that wheeled him in.
== END 2022-10-23 08:32 | disposition home or self-care (01) ==
PROVIDERS: Emergency Provider Student in an Organized Health Care Education/Training Program; PCP Internal Medicine
DX: S51.012A Laceration without foreign body of left elbow, initial encounter (principal); W19.XXXA Unspecified fall, initial encounter; E11.9 Type 2 diabetes mellitus without complications; I10 Essential (primary) hypertension; I48.0 Paroxysmal atrial fibrillation; Z87.891 Personal history of nicotine dependence; Z79.4 Long term (current) use of insulin; Z79.899 Other long term (current) drug therapy; Z79.01 Long term (current) use of anticoagulants; Z79.02 Long term (current) use of antithrombotics/antiplatelets; Y93.79 Activity, other specified sports and athletics; Y92.9 Unspecified place or not applicable; Y99.9 Unspecified external cause status
CPT/HCPCS: 73030; 99282; 99283